=== PATIENT | female | born 1970 | race Caucasian/White ===

== ENCOUNTER 2018-06-17 07:29 | Observation (INO) ==
[2018-06-17 07:52] LABS: Basophils % 0.5 % (0.1-2.0); Eosinophils # 0.1 K/mm3 (0.0-0.4); Eosinophils % 1.5 % (0.1-12.0); Hemoglobin 11.7 g/dL (12.2-16.2); Lymphocytes % 38.3 % (10-50); Mean Corpuscular HGB Conc 32.5 g/dL (31.8-35.4); Mean Corpuscular Hemoglobin 27.1 pg (27.0-31.2); Mean Corpuscular Volume 83.3 fl (81-99); Monocytes # 0.2 K/mm3 (0.1-1.0); Monocytes % 3.8 % (1.7-9.3); Neutrophils # 2.9 K/mm3 (1.8-7.8); Neutrophils % 55.9 % (37.0-80.0); Platelet Count 270 K/mm3 (142-424); Red Blood Count 4.32 M/mm3 (4.20-5.40); Red Cell Distribution Width 14.4 % (11.5-17.5); White Blood Count 5.2 K/mm3 (4.8-10.8)
--- NOTE | 2018-06-17 07:54 | Emergency Department Note ---
ED Disposition Clinical Impression: Unstable angina pectoris, Hypokalemia Obesity Qualifiers: Obesity type: due to excess calories Obesity classification: adult class 3 (BMI >= 40) Serious obesity comorbidity presence: with serious comorbidity Body mass index: BMI 45.0-49.9 Qualified Code(s): E66.01 - Morbid (severe) obesity due to excess calories; Z68.42 - Body mass index (BMI) 45.0-49.9, adult Disposition: Admitted as Observation Condition on Discharge: Good Referrals: Provider,Referral, [Referring] - - Critical Care Critical Care Time: No Attestation: On 06/17/18, the high probability of a clinically significant, sudden or life threatening deterioration of the following system(s) required my full and direct attention, intervention and personal management. The time I documented below is in addition to time spent performing reported procedures but includes the following listed in this critical care notation. Medical Decision Making - Medical Records Medical records reviewed: Yes: I reviewed the patient's medical records. - Juan C Inquiry Pt receiving controlled substance: No Vital Signs: 06/17/18 07:30 06/17/18 07:48 06/17/18 08:14 Temperature 98.4 F Temperature Source Oral Pulse Rate [Right Brachial] 92 H 72 69 Respiratory Rate 22 Blood Pressure [Right Arm] 138/82 130/99 H 125/58 L Blood Pressure Mean [Right Arm] 100 109 80 Blood Pressure Source [Right Arm] Automatic Cuff Automatic Cuff Blood Pressure Position [Right Arm] Sitting Sitting 02 Sat by Pulse Oximetry 97 97 94 L Oxygen Delivery Method Room Air - Lab Data Lab results reviewed: Yes: I reviewed the patient's lab results. Lab Results 06/17/18 07:40: WBC 5.2, RBC 4.32, Hgb 11.7 L, Hct 36.0 L, MCV 83.3, MCH 27.1, MCHC 32.5, RDW 14.4, Plt Count 270, MPV 7.0 L, Neut % (Auto) 55.9, Lymph % (Auto) 38.3, [place] % (Auto) 3.8, Eos % (Auto) 1.5, Baso % (Auto) 0.5, Neut # (Auto) 2.9, Lymph # (Auto) 2.0, [place] # (Auto) 0.2, Eos # (Auto) 0.1, Baso # (Auto) 0.0 06/17/18 07:40: Sodium 140, Potassium 2.9 L*, Chloride 102, Carbon Dioxide 28, Anion Gap 12.9, BUN 7, Creatinine 1.09 H, Estimated Creat Clear 45, Estimated GFR 54 L, Est GFR ( Amer) 65, Glucose 141 H, Calcium 8.6, Troponin I < 0.02 Result diagrams: 06/17/18 07:40 06/17/18 07:40 Orders (Tests/Meds): ED MEDICATIONS Generic Name Dose Route Start Last Admin Trade Name Freq PRN Reason Stop Dose Admin Nitroglycerin 0.4 mg 06/17/18 07:53 06/17/18 07:57 Nitrostat 0.4mg Sl Tablet SL 07/17/18 07:52 1 tab Q5MINP PRN Administration Chest Pain Potassium Chloride 20 meq 06/17/18 08:17 Klor-Con 20meq Tablet PO 06/17/18 08:18 ONCE ONE Discontinued Medications Generic Name Dose Route Start Last Admin Trade Name Freq PRN Reason Stop Dose Admin Aspirin 324 mg 06/17/18 07:46 06/17/18 07:57 Aspirin 81mg Chewable Tablet PO 06/17/18 07:47 324 mg ONCE ONE Administration Nitroglycerin 1 gm 06/17/18 08:13 06/17/18 08:14 Nitroglycerin 1 Inch Oint Udp TD 06/17/18 08:14 1 gm ONCE ONE Administration ORDERS Category Date Time Status Chest XR 2 view (NOT portable) [XR chest 2V] Stat Exams 06/17/18 07:39 Ordered - Radiology Data #1 Image(s): Chest Image Reviewed: Yes I reviewed the patient's radiology image Preliminary Findings: Normal/NAD - ECG Data Tracing #1 Normal Sinus Rhythm: Yes Ischemic changes: non-specific ST-T wave changes ECG compared to prior tracings: this ECG reveals significant changes - Physician Consults Physician Consulted: rudy Reason -: Admission Additional Consult: kendrick Reason -: Pt condition Chest Pain HPI - General Chief Complaint: Chest Pain Stated Complaint: CP Time Seen by Provider: 06/17/18 07:45 Mode of Arrival: Ambulatory Source of Information: Patient, Spouse, Medical Record Limitations: No Limitations Description of Symptoms (Recalled from ER Triage Doc. by RN): C/O "DEEP CP" UNDER LEFT BREAST THAT BEGAN APPROX 1 HOUR AGO. PT STATES THAT SOA BEGAN UPON ENTERING ED, BUT ADVISES HX OF COPD AND EMPHYSEMA. PT ALSO REPORTS HX OF AN "ANXIETY ATTACK" THAT WAS SIMILAR TO THIS A FEW YEARS AGO - History of Present Illness HPI narrative: pt with lt chest pain worse today with last episode last week - pt with no known heart disease - MD complaint: chest pain indicative of cardiac Onset (ago): hour(s) Duration: constant Activity at onset: during rest Pain location: left chest Severity: moderate Treatments prior to or on arrival for Cardiac Chest Pain: none - VICTOR HUGO Score for Non-Stemi Age of Patient: 40-49 years old Heart Rate: 90-109 bpm Systolic Blood Pressure: 120-139 mmhg Serum Creatinine: 0.80-1.19 mg/dl CHF [place] Class: I-No CHF Other Risk Factors: None Non-Stemi Risk Score: 81 - Related Data On Oral Contraceptives: No Allergies Allergy/AdvReac Type Severity Reaction Status Date / Time codeine [CODEINE] Allergy Unknown Verified 06/17/18 07:57 Sulfa (Sulfonamide Allergy Unknown Verified 06/17/18 07:57 Antibiotics) [SULFA (SULFONAMIDE ANTIBIOTICS)] [facility] History - Hepatitis A Screen Drug use history?: No High risk sexual behaviors?: No History of sexually transmitted infection?: No Currently employed?: No Childcare worker?: No Do you have indoor plumbing?: Yes Do you have electricity?: Yes Attestation statement:: This patient has been screened for Hepatitis A risk factors. I have reviewed the patient's past medical history: Yes Medical History: Denies:: Diabetes Mellitus Type 1, Diabetes Mellitus Type 2 Amputation: No Fractures: No - Social History Smoking Status: Former smoker Tobacco Type: cigarettes # Packs/Day (cigarettes): 1 Alcohol Intake: never Occupational Status: unemployed - Psychiatric History Expresses thoughts of harming self/others: None Suicide Plan Description: No Plan ROS Obtained: Yes All systems reviewed & no additional complaints - Constitutional Constitutional: Denies fever(s) - Eyes Eyes: Denies change in vision - ENT Ears, Nose, Mouth, and Throat: Denies sore throat - Cardiovascular Cardiovascular: Reports chest pain at rest, Reports radiating jaw, neck or arm pain - Respiratory Respiratory: No cough - Gastrointestinal Gastrointestingal: Denies: abdominal pain - Genitourinary Female Genitourinary: Denies hematuria - Musculoskeletal Musculoskeletal: Denies joint pain - Integumentary/Breasts Skin/Breast: Denies rash - Neurologic Neurologic: Denies seizure-like activity Physical Exam - General General appearance: in no apparent distress, obese - Head Head exam: normocephalic - Eye Eye exam: Present: PERRL, EOMI. Absent: scleral icterus - ENT ENT exam: Present: mucous membranes dry - Neck Neck exam: Present: trachea midline - Respiratory Respiratory exam: Present: normal lung sounds bilaterally. Absent: respiratory distress - Cardiovascular Cardiovascular exam: Present: regular rate, systolic murmur - Abdominal Exam Abdominal exam: Present: soft - Extremities Exam Extremities exam: Absent: calf tenderness - Neurological Exam Neurological exam: Present: alert, oriented X3, CN II-XII intact - Psychiatric Psychiatric exam: Present: normal affect - Skin Skin exam: Absent: rash
[2018-06-17 08:03] LABS: Anion Gap 12.9 mEq/L (5-15); Blood Urea Nitrogen 7 mg/dL (7-18); Calcium 8.6 mg/dL (8.5-10.1); Carbon Dioxide 28 mmol/L (21.0-32.0); Chloride 102 mmol/L (98-107); Glucose 141 mg/dL (74-106); Sodium 140 mmol/L (136-145)
[2018-06-17 08:11] LABS: Potassium 2.9 mmoL/L (3.5-5.1)
--- NOTE | 2018-06-17 08:20 | Consult Report ---
History of Present Illness Consult date: 06/17/18 Requesting physician: Andrey Adrian Consult reason: chest pain Chief complaint: chest pain Additional Medical History:: 1. DM, treated for 3 yrs 2. HTN, on medication 3. HLD, on medication 4. History of migraines A. Takes nadolol 5. History of seizure disorder 6. FH of early CAD in father who is diabetic 7. Tobacco use, stopped 2 months ago A. smoked 1.5-2 ppd for 30 yrs History of present illness: 47-year-old white female with multiple medical problems including hypertension, hyperlipidemia, diabetic and ex-smoker of less than 1 year presented to the emergency department for complaint of chest pain that woke her from sleep. Patient relates a 2-week history of increasing episodes of recurrent left-sided chest discomfort described as a sharp stabbing sensation. No appreciable exercise component noted. She denies any nausea, vomiting or diarrhea. Patient relates she is being worked up for gastric sleeve and due to her abnormal EKG was told she needed to have a stress test in the near future. This has not been accomplished at this time. Patient was seen in the emergency department today at [facility] and was given a sublingual nitroglycerin with improvement in her chest pain. A second sublingual nitroglycerin has been given with additional improvement in her chest pain. Initial EKG shows sinus rhythm with ST segment abnormalities in the anterolateral leads, worse when compared with her previous tracings from 2013 and 2008. Initial labs are pending at this time. Patient relates a cardiac catheterization in the remote past (greater than 5 years ago) without need for intervention. Cardiology consulted for evaluation recommendations. [facility] History Medical History: Reports:: Hyperlipidemia, Hypertension Denies:: Diabetes Mellitus Type 1, Diabetes Mellitus Type 2 Amputation: No Fractures: No - *Social History Smoking Status: Former smoker Tobacco Type: cigarettes # Packs/Day (cigarettes): 1 Alcohol Intake: never *Occupational Status:: unemployed *Travel in the last 8 weeks: None - Psychiatric History Expresses thoughts of harming self/others: None Suicide Plan Description: No Plan Family Hx:: Coronary Artery Disease, Diabetes Meds Home Medications Medication Instructions Recorded Confirmed Type Gabapentin [Gabapentin 100mg Cap] 100 mg PO DAILY 06/17/18 06/17/18 History Nadolol [Corgard 20mg tablet] 20 mg PO DAILY 06/17/18 06/17/18 History Omeprazole [Omeprazole 40mg 40 mg PO DAILY 06/17/18 06/17/18 History Capsule] Pravastatin Sodium [Pravachol 40mg 40 mg PO DAILY 06/17/18 06/17/18 History Tablet] Tiotropium [place] [Spiriva 1 puff PO NEEDED PRN 06/17/18 06/17/18 History 18mcg/puff inhaler] Tramadol HCl [Tramadol 50mg 50 mg PO Q6HP PRN 06/17/18 06/17/18 History Tab] Allergies Allergy/AdvReac Type Severity Reaction Status Date / Time codeine [CODEINE] Allergy Unknown Verified 06/17/18 07:57 Sulfa (Sulfonamide Allergy Unknown Verified 06/17/18 07:57 Antibiotics) [SULFA (SULFONAMIDE ANTIBIOTICS)] Review of Systems - *Cardiovascular Reports chest pain, Denies shortness of breath with activity, Denies fast heart rate - *Respiratory Denies shortness of breath, Denies wheezing - *Gastrointestinal Denies abdominal pain, Denies nausea, Denies vomiting - *Genitourinary Denies blood in urine - *Musculoskeletal Denies joint pain, Denies back pain - *Neurologic Denies dizziness, Denies fainting Exam Vital signs and Labs for Last 24 Hours: Temp Pulse Resp BP Pulse Ox 98.4 F 72 22 130/99 H 97 06/17/18 07:30 06/17/18 07:48 06/17/18 07:30 06/17/18 07:48 06/17/18 07:48 Laboratory Results - last 24 hr 06/17/18 07:40: WBC 5.2, RBC 4.32, Hgb 11.7 L, Hct 36.0 L, MCV 83.3, MCH 27.1, MCHC 32.5, RDW 14.4, Plt Count 270, MPV 7.0 L, Neut % (Auto) 55.9, Lymph % (A uto) 38.3, [place] % (Auto) 3.8, Eos % (Auto) 1.5, Baso % (Auto) 0.5, Neut # (Auto) 2.9, Lymph # (Auto) 2.0, [place] # (Auto) 0.2, Eos # (Auto) 0.1, Baso # (Auto) 0.0 06/17/18 07:40: Sodium 140, Potassium 2.9 L*, Chloride 102, Carbon Dioxide 28, Anion Gap 12.9, BUN 7, Creatinine 1.09 H, Estimated Creat Clear 45, Estimated GFR 54 L, Est GFR ( Amer) 65, Glucose 141 H, Calcium 8.6, Troponin I < 0.02 I & O for Last 24 hours: Intake & Output 06/14/18 06/15/18 06/16/18 06/17/18 11:59 11:59 11:59 11:59 Weight 245 lb - *Routine HEENT Exam Head: Present: normocephalic Eye: Present: EOMI, PERRL ENT: Present: mucous membranes moist - *Routine Neck Exam Present: supple. Absent: JVD, carotid bruit - *Routine Respiratory Exam Present: CTA bilaterally. Absent: accessory muscle use, rales, rhonchi, wheezes - *Routine Cardiovascular Exam Present: RRR. Absent: murmur, gallop, rubs - *Routine Abdominal Exam Present: soft. Absent: tenderness, distended, guarding - *Routine Extremities Exam Absent: edema, calf tenderness - *Routine Neurological Exam Present: alert, oriented X3, moving all extremities Assessment and Plan (1) Unstable angina pectoris Current visit: Yes Status: Acute Category: Medical Code(s): I20.0 - Unstable angina (2) Diabetes mellitus Current visit: Yes Status: Acute Category: Medical Code(s): E11.9 - Type 2 diabetes mellitus without complications (3) Ex-smoker for less than 1 year Current visit: Yes Status: Acute Category: Social Hx Code(s): Z78.9 - Other specified health status (4) Hypertension Current visit: Yes Status: Acute Category: Medical Code(s): I10 - Essential (primary) hypertension (5) Hyperlipidemia associated with type 2 diabetes mellitus Current visit: Yes Status: Acute Category: Medical Code(s): E11.69 - Type 2 diabetes mellitus with other specified complication; E78.5 - Hyperlipidemia, unspecified (6) Obesity, morbid, BMI 40.0-49.9 Current visit: Yes Status: Acute Category: Medical Code(s): E66.01 - Morbid (severe) obesity due to excess calories (7) History of seizure disorder Current visit: Yes Status: Acute Category: Medical Code(s): Z86.69 - Personal history of other diseases of the nervous system and sense organs (8) Abnormal EKG Current visit: Yes Status: Acute Category: Medical Code(s): R94.31 - Abnormal electrocardiogram [ECG] [EKG] - Assessment and plan all Dx Assessment and Plan for all problems:: 1. Patient is having recurrent episodes of chest pain that constitutes unstable angina pectoris. Symptoms have significantly improved with nitroglycerin tabs. Patient will receive aspirin along with Nitropaste and metoprolol 25 mg, be admitted for observation and treatment including cardiac catheterization this morning. 2. Recommend echocardiogram to evaluate left ventricular size and function along with valve status. 3. Further recommendations to follow pending above results.
--- NOTE | 2018-06-17 11:30 | Pharmacy Consult Notes ---
[facility] Pharmacy VTE Monitoring - Patient Demographics Admission date: 06/17/18 Report Date: 06/17/18 Time: 11:30 Allergies/Adverse Reactions: Patient Allergies codeine [CODEINE] Allergy (Unknown, Verified 06/17/18 07:57) Sulfa (Sulfonamide Antibiotics) [SULFA (SULFONAMIDE ANTIBIOTICS)] Allergy (Unknown, Verified 06/17/18 07:57) Height: 1.52 m Weight: 111.13 kg Patient Problems: Current Active Problems (Updated 06/17/18 @ 09:35 by Sosa Clark RN) Unstable angina pectoris (Acute) Diabetes mellitus (Acute) Ex-smoker for less than 1 year (Acute) Hypertension (Acute) Hyperlipidemia associated with type 2 diabetes mellitus (Acute) Obesity, morbid, BMI 40.0-49.9 (Acute) History of seizure disorder (Acute) Abnormal EKG (Acute) Unstable angina pectoris (Acute) Hypokalemia (Acute) Obesity (Acute) - VTE Risk Labs: VTE Related Lab Results Hgb 11.7 g/dL (12.2-16.2) L 06/17/18 07:40 Hct 36.0 % (37.0-47.0) L 06/17/18 07:40 Plt Count 270 K/mm3 (142-424) 06/17/18 07:40 BUN 7 mg/dL (7-18) 06/17/18 07:40 Creatinine 1.09 mg/dL (0.55-1.02) H 06/17/18 07:40 Estimated Creat Clear 45 mL/min (50-200) 06/17/18 07:40 - Prophylaxis VTE Prophylaxis Ordered?: Yes Types of VTE Prophylaxis: TEDS Knee High Location of Applied Device: Bilateral Lower Extremeties
--- NOTE | 2018-06-17 16:00 | Discharge Summary ---
General - General Admission date:: 06/17/18 Discharge date: 06/17/18 HPI HPI: HPI pulled from Cardiology consult: 47-year-old white female with multiple medical problems including hypertension, hyperlipidemia, diabetic and ex-smoker of less than 1 year presented to the emergency department for complaint of chest pain that woke her from sleep. Patient relates a 2-week history of increasing episodes of recurrent left-sided chest discomfort described as a sharp stabbing sensation. No appreciable exercise component noted. She denies any nausea, vomiting or diarrhea. Patient relates she is being worked up for gastric sleeve and due to her abnormal EKG was told she needed to have a stress test in the near future. This has not been accomplished at this time. Patient was seen in the emergency department today at [facility] and was given a sublingual nitroglycerin with improvement in her chest pain. A second sublingual nitroglycerin has been given with additional improvement in her chest pain. Initial EKG shows sinus rhythm with ST segment abnormalities in the anterolateral leads, worse when compared with her previous tracings from 2013 and 2008. Initial labs are pending at this time. Patient relates a cardiac catheterization in the remote past (greater than 5 years ago) without need for intervention. Cardiology consulted for evaluation recommendations. Hospital Course Hospital Course: Patient was admitted for chest pain and further observation and procedure. Cardiac catheterization today revealed normal coronary arteries, normal ejection fraction, and moderate to severely elevated LVEDP consistent with diastolic dysfunction. Recommendations were made by cardiology to start lasix 20 mg daily and spironlactone 25 mg daily. She will follow up with PCP in one week to monitor blood pressure, symptoms and draw BMP. Follow up with cardiology in 1-2 weeks. Objective Vital signs: Temp Pulse Resp BP Pulse Ox 98.0 F 71 16 120/68 96 06/17/18 11:55 06/17/18 13:55 06/17/18 13:55 06/17/18 13:55 06/17/18 13:55 no acute distress, obese - *Routine Respiratory Exam Present: CTA bilaterally. Absent: accessory muscle use - *Routine Cardiovascular Exam Present: RRR, Normal S1, Normal S2. Absent: tachycardia, irregular rhythm - *Routine Abdominal Exam Present: soft, normoactive bowel sounds - *Routine Extremities Exam Comments: right radial with dressing from cardiac cath CDI, no ecchymosis, cyanosis, swelling noted, < 3 sec cap refill - *Routine Neurological Exam Present: alert, oriented X3 - Routine Psychiatric Exam Present: normal affect Results Labs on day of discharge: Labs from last 24 hours 06/17/18 06/17/18 06/17/18 12:15 07:40 07:40 WBC RBC Hgb Hct MCV MCH MCHC RDW Plt Count MPV Neut % (Auto) Lymph % (Auto) [place] % (Auto) Eos % (Auto) Baso % (Auto) Neut # (Auto) Lymph # (Auto) [place] # (Auto) Eos # (Auto) Baso # (Auto) Sodium 140 Potassium 2.9 L* Chloride 102 Carbon Dioxide 28 Anion Gap 12.9 BUN 7 Creatinine 1.09 H Estimated Creat Clear 45 Estimated GFR 54 L Est GFR ( Amer) 65 Glucose 141 H Calcium 8.6 Troponin I < 0.02 < 0.02 Serum HCG, Qual Negative 06/17/18 07:40 WBC 5.2 RBC 4.32 Hgb 11.7 L Hct 36.0 L MCV 83.3 MCH 27.1 MCHC 32.5 RDW 14.4 Plt Count 270 MPV 7.0 L Neut % (Auto) 55.9 Lymph % (Auto) 38.3 [place] % (Auto) 3.8 Eos % (Auto) 1.5 Baso % (Auto) 0.5 Neut # (Auto) 2.9 Lymph # (Auto) 2.0 [place] # (Auto) 0.2 Eos # (Auto) 0.1 Baso # (Auto) 0.0 Sodium Potassium Chloride Carbon Dioxide Anion Gap BUN Creatinine Estimated Creat Clear Estimated GFR Est GFR ( Amer) Glucose Calcium Troponin I Serum HCG, Qual DS: Diagnosis - Discharge Diagnosis (1) Unstable angina pectoris Status: Acute (2) Diabetes mellitus Status: Acute (3) Ex-smoker for less than 1 year Status: Acute (4) Hypertension Status: Acute (5) Hyperlipidemia associated with type 2 diabetes mellitus Status: Acute (6) Obesity, morbid, BMI 40.0-49.9 Status: Acute (7) History of seizure disorder Status: Acute (8) Abnormal EKG Status: Acute (9) Diastolic dysfunction Status: Acute Discharge Plan - Patient Discharge Instructions ACTIVITY: No heavy lifting DIET: low salt diet, cardiac Patient Instructions: DI for Pacemaker Insertion, DI for Surgical Site Infection - Follow up Plan Follow up with: Yarely Higginbotham APRN [Nurse Practitioner] - 06/23/18 8:00 am Disposition: Home, Self-Half-Way Medications: Home Medications Medication Instructions Recorded Confirmed Type Aspirin [Aspirin 325mg Tab] 325 mg PO DAILY 06/17/18 06/17/18 History Furosemide [Lasix 20mg tablet] 20 mg PO DAILY 30 Days #30 tab 06/17/18 Rx Gabapentin [Gabapentin 100mg Cap] 100 mg PO TID 06/17/18 06/17/18 History Loratadine [Allergy] 10 mg PO DAILY 06/17/18 06/17/18 History Nadolol [Corgard 20mg tablet] 20 mg PO DAILY 06/17/18 06/17/18 History Omeprazole [Omeprazole 40mg 40 mg PO DAILY 06/17/18 06/17/18 History Capsule] Pravastatin Sodium [Pravachol 40mg 40 mg PO DAILY 06/17/18 06/17/18 History Tablet] Sertraline HCl [Zoloft] 100 mg PO BID 06/17/18 06/17/18 History Spironolactone [Aldactone 25mg 25 mg PO DAILY 30 Days #30 tablet 06/17/18 Rx Tab] Tiotropium [place] [Spiriva 1 puff PO DAILY 06/17/18 06/17/18 History 18mcg/puff inhaler] Tramadol HCl [Tramadol 50mg 50 mg PO Q4HP PRN 06/17/18 06/17/18 History Tab] dilTIAZem HCl [Cartia Xt] 180 mg PO DAILY 06/17/18 06/17/18 History Prescriptions/Medication Reconciliation: New Spironolactone [Aldactone 25mg Tab] 25 mg PO DAILY 30 Days #30 tablet Furosemide [Lasix 20mg tablet] 20 mg PO DAILY 30 Days #30 tab Continued Tiotropium [place] [Spiriva 18mcg/puff inhaler] 1 puff PO DAILY Pravastatin Sodium [Pravachol 40mg Tablet] 40 mg PO DAILY Omeprazole [Omeprazole 40mg Capsule] 40 mg PO DAILY Nadolol [Corgard 20mg tablet] 20 mg PO DAILY Gabapentin [Gabapentin 100mg Cap] 100 mg PO TID Aspirin [Aspirin 325mg Tab] 325 mg PO DAILY dilTIAZem HCl [Cartia Xt] 180 mg PO DAILY Loratadine [Allergy] 10 mg PO DAILY Tramadol HCl [Tramadol 50mg Tab] 50 mg PO Q4HP PRN PRN Reason: PAIN Sertraline HCl [Zoloft] 100 mg PO BID
--- NOTE | 2018-06-17 16:53 | Cardiology Report ---
PROCEDURE: 2-D M-mode and color Doppler study INDICATIONS FOR THE TEST: Chest pain X COPDX Heart Murmur Tobacco SmokingEX Palpitations FatigueX Syncope Edema HypertensionXDiabetes MellitusX Rheumatic Fever SOBXDOEXObesityXHyperlipidemia Family History HD Additional History PATIENT INFORMATION HEIGHT: 60 WEIGHT:245 GENDER: Female B/P:121/64 2-D/M-MODE INTERPRETATION: 2-D MEASUREMENTS OBSERVED VALUES IN CMS Right Ventricular Dimension (RVDd) 2.0 Interventricular Septum (Thickness)(IVsd) 1.0 Left Ventricular Internal Dimensions(LVIDd) 5.5 Left Ventricular Posterior Wall (Thickness)(LVPWd) 1.0 Aortic Root 2.8 Aortic Cusp Separation 1.5 Left Atrial Dimensions (LAD) 4.4 2D 1. Technically difficult study, Definity contrast was utilized to delineate endocardial surfaces 2. Left atrium is mildly enlarged, left ventricle is normal size, there is mild concentric left ventricular hypertrophy, there is mildly reduced left ventricular systolic function, visually estimated ejection fraction 40-45%, left ventricle is globally hypokinetic. 3. The right atrium and right ventricle are mildly enlarged with normal contractility. 4. The aortic valve is minimally thickened and fibrosed. 5. The mitral and tricuspid valve leaflets are minimally thickened. 6. The pulmonic valve is poorly present. 7. No significant pericardial effusion noted. DOPPLER INTERROGATION: Doppler interrogation of the aortic, mitral and tricuspid valvular presence of mild to moderate mitral and mild tricuspid regurgitation, calculated right ventricular systolic pressure is 42 mmHg consistent with moderate pulmonary hypertension, diastolic parameters are inconclusive. CONCLUSION: 1. Technically difficult study, Definity contrast was utilized to delineate endocardial surfaces. 2. Mildly enlarged left atrium, normal left ventricular size, mild concentric left ventricular hypertrophy, there is mildly reduced left ventricular systolic function, visually estimated ejection fraction 40-45%, left ventricle is globally hypokinetic, diastolic parameters are inconclusive. 3. Mildly enlarged right atrium and right ventricle, contractility of the right ventricle is normal. 4. Mild to moderate mitral and mild tricuspid regurgitation, calculated right ventricular systolic pressure is 42 mmHg consistent with moderate pulmonary hypertension. 5. No significant pericardial effusion noted.
--- NOTE | 2018-06-22 11:45 | H&P/Discharge Summary ---
General - General Admission date:: 06/17/18 Discharge date: 06/17/18 *Admission Date: 06/17/18 *History of present illness: 47-year-old white female with multiple medical problems including hypertension, hyperlipidemia, diabetic and ex-smoker of less than 1 year presented to the emergency department for complaint of chest pain that woke her from sleep. Patient relates a 2-week history of increasing episodes of recurrent left-sided chest discomfort described as a sharp stabbing sensation. No appreciable exercise component noted. She denies any nausea, vomiting or diarrhea. Patient relates she is being worked up for gastric sleeve and due to her abnormal EKG was told she needed to have a stress test in the near future. This has not been accomplished at this time. Patient was seen in the emergency department today at [facility] and was given a sublingual nitroglycerin with improvement in her chest pain. A second sublingual nitroglycerin has been given with additional improvement in her chest pain. Initial EKG shows sinus rhythm with ST segment abnormalities in the anterolateral leads, worse when compared with her previous tracings from 2013 and 2008. Initial labs are pending at this time. Patient relates a cardiac catheterization in the remote past (greater than 5 years ago) without need for intervention. Cardiology consulted for evaluation recommendations. [facility] History I have reviewed the patient's past medical history: Yes Medical History: Reports:: Cancer (PRECANCEROUS CELLS LEFT BREAST), Hyperlipidemia, Hypertension Denies:: Diabetes Mellitus Type 1, Diabetes Mellitus Type 2, MRSA *Have you ever received a pneumonia vaccine?: No *Have you received a flu vaccine this season?: No Other Surgeries: Yes: Hysterectomy-Total Amputation: No Fractures: No - *Social History Educational Level: Completed High School Smoking Status: Former smoker Tobacco Type: cigarettes # Packs/Day (cigarettes): 1 Alcohol Intake: never *Occupational Status:: unemployed Housing: house Household Members: spouse *Travel in the last 8 weeks: None - Psychiatric History Expresses thoughts of harming self/others: None Suicide Plan Description: No Plan Family Hx:: Cancer, Coronary Artery Disease, Diabetes, Heart Attack, Hyperlipidemia, Hypertension Review of Systems - Review of Systems Review of systems:: pertinent systems reviewed and negative unless documented below - *Neurologic Denies dizziness, Denies seizure-like activity, Denies fainting Exam Vital signs and Labs for Last 24 Hours: Temp Pulse Resp BP Pulse Ox 98.0 F 71 16 126/73 94 L 06/17/18 16:55 06/17/18 16:55 06/17/18 16:55 06/17/18 16:55 06/17/18 16:55 - Constitutional no acute distress - *Routine HEENT Exam Head: Present: normocephalic Eye: Present: EOMI ENT: Present: mucous membranes moist - *Routine Respiratory Exam Present: CTA bilaterally - *Routine Cardiovascular Exam Present: RRR, Normal S1, Normal S2 - *Routine Abdominal Exam Present: soft, normoactive bowel sounds - *Routine Extremities Exam Present: edema (trace bilateral lower ext) Hospital Course Hospital Course: Patient was admitted for chest pain and further observation and procedure. Cardiac catheterization today revealed normal coronary arteries, normal ejection fraction, and moderate to severely elevated LVEDP consistent with diastolic dysfunction. Recommendations were made by cardiology to start lasix 20 mg daily and spironlactone 25 mg daily. She will follow up with PCP in one week to monitor blood pressure, symptoms and draw BMP. Follow up with cardiology in 1-2 weeks DS: Diagnosis - Discharge Diagnosis (1) Unstable angina pectoris Status: Acute (2) Diabetes mellitus Status: Acute (3) Ex-smoker for less than 1 year Status: Acute (4) Hypertension Status: Acute (5) Hyperlipidemia associated with type 2 diabetes mellitus Status: Acute (6) Obesity, morbid, BMI 40.0-49.9 Status: Acute (7) History of seizure disorder Status: Acute (8) Abnormal EKG Status: Acute (9) Diastolic dysfunction Status: Acute Discharge Medications - Medications for Discharge Home Medication List at Discharge: New Spironolactone [Aldactone 25mg Tab] 25 mg PO DAILY 30 Days #30 tab Furosemide [Lasix 20mg tablet] 20 mg PO DAILY 30 Days #30 tab Continued Tiotropium [place] [Spiriva 18mcg/puff inhaler] 1 puff PO DAILY Pravastatin Sodium [Pravachol 40mg Tablet] 40 mg PO DAILY Omeprazole [Omeprazole 40mg Capsule] 40 mg PO DAILY Nadolol [Corgard 20mg tablet] 20 mg PO DAILY Gabapentin [Gabapentin 100mg Cap] 100 mg PO TID Aspirin [Aspirin 325mg Tab] 325 mg PO DAILY dilTIAZem HCl [Cartia Xt] 180 mg PO DAILY Loratadine [Allergy] 10 mg PO DAILY Tramadol HCl [Tramadol 50mg Tab] 50 mg PO Q4HP PRN PRN Reason: PAIN Sertraline HCl [Zoloft] 100 mg PO BID Disposition Disposition: Home, Self-Care
== END 2018-06-17 17:48 | disposition home or self-care (01) ==
LOC: 2ND 07:29 → ER 07:29 → 2ND 09:14
PROVIDERS: ADMIT Family Medicine; ATTEND Family Medicine
CPT/HCPCS: 36415; 71020; 71046; 80048; 84484; 84703; 85025; 93005; 93306; 93458; 99152; 99284; C1725; C1769; G0378; J1644

== ENCOUNTER → 2018-06-23 08:47 | Outpatient (CLI) | payer MEDICARE, MEDICAID, SELFPAY ==
[2018-06-23 11:02] LABS: Anion Gap 10.6 mEq/L (5-15); Blood Urea Nitrogen 9 mg/dL (7-18); Calcium 8.7 mg/dL (8.5-10.1); Carbon Dioxide 32 mmol/L (21.0-32.0); Chloride 102 mmol/L (98-107); Creatinine,Serum 0.98 mg/dL (0.55-1.02); Estimated Glomerular Filt Rate 60 ml/min (>60); GFR (African American) 73 ML/MIN (>60); Glucose 98 mg/dL (74-106); Potassium 3.6 mmoL/L (3.5-5.1); Sodium 141 mmol/L (136-145)
== END ==
PROVIDERS: PCP Nurse Practitioner Family; Visit Provider Nurse Practitioner Family
DX: E87.6 Hypokalemia (principal); I10 Essential (primary) hypertension
CPT/HCPCS: 36415; 80048

== ENCOUNTER → 2019-05-31 08:11 | Outpatient (CLI) | payer MEDICARE, MEDICAID, SELFPAY ==
--- NOTE | 2019-05-31 08:15 | XR_ITS ---
PROCEDURE: XR WRIST RT MIN 3V CLINICAL INDICATION: right wrist pain/ cts COMPARISON: XR WRIST LT MIN 3V from 05/31/2019 FINDINGS: There is a well-circumscribed cyst involving the mid aspect of the scaphoid measuring 6 mm. No acute fracture or other significant anomalies evident. There is a small bony ridge laterally at the waist of the scaphoid nonspecific. There is some minimal hypertrophic change of the radial styloid process and mild prominence of the scapho lunate space IMPRESSION: Well-circumscribed benign-appearing cystic lesion of the scaphoid. Mild prominence of the scapholunate space which could be seen with ligamentous injury. Dictated by: Neville Piper MD 05/31/2019 17:59 Electronically signed by Neville Piper MD in [place] 05/31/2019 17:59
--- NOTE | 2019-05-31 08:15 | XR_ITS ---
PROCEDURE: XR WRIST LT MIN 3V CLINICAL INDICATION: left wrist pain/ cts COMPARISON: No exams were available for comparison FINDINGS: No fracture, dislocation, lytic change, or blastic change evident. No significant degenerative change IMPRESSION: Negative left wrist Dictated by: Neville Piper MD 05/31/2019 17:59 Electronically signed by Neville Piper MD in [place] 05/31/2019 17:59
== END ==
PROVIDERS: PCP Family Medicine; Visit Provider Orthopaedic Surgery
DX: M25.532 Pain in left wrist (principal); M25.531 Pain in right wrist
CPT/HCPCS: 73110; 97760

== ENCOUNTER 2019-05-31 10:04 | Outpatient (RCR) | payer MEDICARE, MEDICAID, SELFPAY | END 2019-05-31 10:47 | disposition home or self-care (01) | LOC: PT 10:04 | PROVIDERS: Visit Provider Orthopaedic Surgery | DX: G56.03 Carpal tunnel syndrome, bilateral upper limbs (principal) | CPT/HCPCS: 97760 ==

== ENCOUNTER → 2019-06-13 10:11 | Outpatient (CLI) | payer MEDICARE, MEDICAID, SELFPAY ==
--- NOTE | 2019-06-13 10:11 | MR_ITS ---
PROCEDURE: MR WRIST RT WO CON CLINICAL INDICATION: evaluate cyst; rec by Dr Piper Right wrist pain, evaluate extent of cystic involvement COMPARISON: XR WRIST RT MIN 3V from 05/31/2019 XR WRIST LT MIN 3V from 05/31/2019 TECHNIQUE: Routine multiplanar multi echo sequences are performed without gadolinium enhancement. FINDINGS: Exam is somewhat limited due to mild motion artifact and non orthogonal imaging planes with mild rotation of the patient's wrist.. There is a complex cystic lesion involving the mid aspect of the scaphoid this lesion measures 10 by 7 by 6 mm. There does appear to be some internal septations. There is thinning of the cortex. No obvious soft tissue component however, this is at best questionable IMPRESSION: Limited exam demonstrating complex cystic lesion of the scaphoid. This is causing moderate cortical thinning. Due to the limitations, would suggest CT for more thorough evaluation of the bony structures. Dictated by: Nevilel Piper MD 06/15/2019 12:36 Electronically signed by Neville Piper MD in [place] 06/15/2019 12:36
== END ==
PROVIDERS: PCP Family Medicine; Visit Provider Orthopaedic Surgery
DX: M85.649 Other cyst of bone, unspecified hand (principal)
CPT/HCPCS: 73221

== ENCOUNTER → 2019-07-06 07:11 | Outpatient (CLI) | payer MEDICARE, MEDICAID, SELFPAY ==
[2019-07-06 08:22] LABS: Basophils % 0.5 % (0.1-2.0); Eosinophils # 0.1 K/mm3 (0.0-0.4); Eosinophils % 1.2 % (0.1-12.0); Hemoglobin 11.7 g/dL (12.2-16.2); Lymphocytes # 2.7 K/mm3 (0.7-4.5); Lymphocytes % 38.1 % (10-50); Mean Corpuscular HGB Conc 32.6 g/dL (31.8-35.4); Mean Corpuscular Hemoglobin 27.6 pg (27.0-31.2); Mean Corpuscular Volume 84.7 fl (81-99); Mean Platelet Volume 7.8 fl (7.4-10.4); Monocytes # 0.4 K/mm3 (0.1-1.0); Neutrophils # 3.9 K/mm3 (1.8-7.8); Neutrophils % 55.2 % (37.0-80.0); Platelet Count 274 K/mm3 (142-424); Red Blood Count 4.25 M/mm3 (4.20-5.40); Red Cell Distribution Width 14.6 % (11.5-17.5); White Blood Count 7.1 K/mm3 (4.8-10.8)
[2019-07-06 08:49] LABS: Chloride 99 mmol/L (98-107); Potassium 3.9 mmoL/L (3.5-5.1); Sodium 139 mmol/L (136-145)
[2019-07-06 08:52] LABS: Anion Gap 12.9 mEq/L (5-15); Blood Urea Nitrogen 14 mg/dl (7-17); Calcium 9.3 mg/dl (8.4-10.2); Carbon Dioxide 31 mmol/L (22.0-30.0); Estimated Glomerular Filt Rate 66 ml/min (>60); GFR (African American) 80 ML/MIN (>60); Glucose 203 mg/dl (74-100)
[2019-07-06 09:27] LABS: Coronavirus 19 IgG Antibody Negative (Negative); Coronavirus 19 IgM Antibody Negative (Negative)
[2019-07-06 10:08] LABS: Hemoglobin A1C 7.2 % (4.0-6.0)
== END ==
PROVIDERS: Visit Provider Orthopaedic Surgery
DX: Z01.818 Encounter for other preprocedural examination (principal); G56.01 Carpal tunnel syndrome, right upper limb; E11.9 Type 2 diabetes mellitus without complications
CPT/HCPCS: 36415; 80048; 83036; 85025; 86328

== ENCOUNTER 2019-07-07 06:00 | Day surgery (SDC) | payer MEDICARE, MEDICAID, SELFPAY ==
--- NOTE | 2019-07-05 14:36 | SUR.PREOP ---
07/05/2019--PHONE CALL MADE TO PATIENT. PATIENT UNDERSTANDS THAT LAB WORK AND COVID TESTING NEEDS TO BE COMPLETED @ 0700 ON 07/06/2019 . PATIENT UNDERSTANDS IF LAB WORK AND COVID-19 TESTS ARE NOT COMPLETED BY 12PM ON THAT DATE, THE SURGERY SCHEDULED WILL BE CANCELLED AND RESCHEDULED FOR ANOTHER TIME.
[2019-07-06 10:30] VITALS: BMI 50.8
[2019-07-07] VITALS (12 sets, daily range): BP systolic 101–124; BP diastolic 52–79; PULSE 58–91; RESP 18–20; TEMP 36.3–36.6; O2SAT 95–98
--- NOTE | 2019-07-07 06:57 | P.PN_ITS ---
[facility] Anesthesia Checklist - Patient Identification Patient Identification: Arm Band, Verbal (Name & ) - Structural Data Admitted From: Home Planned Operative Procedure/s: Right CTR Consent for Planned Operative Procedure(s) Verified: Yes Verified Documents: Surgical Consent, History and Physical - NPO Status Verified Time NPO: 20:00 - Chart Verification Results Verified: CBC, BMP - Additional verifications Anesthesia Reactions: No Hx Blood Transfusions: No Blood Transfusion Reaction: No - Airway Assessment C-Spine Mobility Assessed: Yes (full neck ROM, thick neck, MP II) TMJ Mobility Assessed: Yes Dentition: Edentulous - Neurological Assessment Level of Consciousness: Awake, Alert, Appropriate, Follows Commands Hx Seizures: Yes (6 months ago) Numbness or tingling in extremities: Yes (Bilateral hands) - Anesthesia Plan Anesthesia Risk discussed: Yes Anesthesia Plan: Verified ASA Class: III Anesthesia Type: MAC [facility] History I have reviewed the patient's past medical history: Yes Medical History: Reports:: Anxiety, Chronic Obstructive Pulmonary Disease (COPD), Depression, Gastroesophageal Reflux Disease(GERD), Hyperlipidemia, Hypertension, Seizures (last seizure 6 months ago) Denies:: Cancer, Diabetes Mellitus Type 1, Diabetes Mellitus Type 2, MRSA *Have you ever received a pneumonia vaccine?: Yes *Have you received a flu vaccine this season?: Yes Other Medical History: Reports: Arthritis. Denies: Blood Transfusion Reaction Comment:: chronic lower back pain, morbid obesity Anesthesia experience/problems:: None Laterality Cases: Left: Breast Biopsy Other Surgeries: Yes: Cardiac Catheterization, Cholecystectomy, , Hysterectomy-Total Amputation: No Fractures: No - *Social History Educational Level: Completed High School Smoking Status: Former smoker (Quit 1 year and 3 months ago) Tobacco Type: cigarettes # Packs/Day (cigarettes): 1 #Yrs smoked (if former smoker): 30 Alcohol Intake: never Substance Use Type: denies use *Occupational Status:: unemployed Housing: house Household Members: spouse *Travel in the last 8 weeks: None - Psychiatric History Pschychiatric History:: Reports:: Anxiety, Depression Family Hx:: Cancer, Coronary Artery Disease, Diabetes, Heart Attack, Hyperlipidemia, Hypertension
--- NOTE | 2019-07-07 09:16 | HMH.ANESI ---
[facility] Anesthesia Record Part I Intake, IV Amount: 913 Estimated blood loss (mL): 10 Urine output (mL): 0 Blood Products used (#): none Blood Pressure: 124/71 SaO2: 96 Pulse Rate: 91 Respiratory Rate: 20 Temperature: 97.8 F Patient is:: Drowsy, Nasal O2, Stable Stable to PACU at:: 09:13
--- NOTE | 2019-07-07 10:28 | HMH.ANESII ---
[facility] Anesthesia Record Part II Discharge Time: 09:43 Destination: Surgical Day Care (OP Surgery) PACU nurse assessment reviewed?: Yes Patient Condition:: Good Anesthesia Complications:: None Swallowing reflex intact?: Yes Cyanosis?: No Blood Pressure: 113/54 Pulse Rate: 85 Temperature: 97.7 F Mental Status: Alert & Oriented Pain level:: 2 Nausea and/or vomitting:: None Intake, IV Amount: 50
--- NOTE | 2019-07-07 11:15 | SUR.PHASEII ---
R hand fingers are pink, warm, and able to move fingers. Partial numbness from local.
--- NOTE | 2019-07-07 18:15 | HMH.OPNOTE ---
Date of procedure: 07/07/19 Pre-op Diagnosis:: Carpal tunnel syndrome, right wrist Post-op Diagnosis:: 1. Carpal tunnel syndrome, right wrist 2. Synovitis flexor tendon sheaths, right carpal tunnel Procedure performed:: 1. Open carpal tunnel release, RIGHT wrist 2. Partial flexor tendon synovectomy/excision biopsy synovitis, right carpal tunnel Surgeon:: Baldo Sexton MD UNIT SECY:: Andrey Lehman Anesthesia: LMA Estimated blood loss (mL): 5 Clinical Note:: Patient is 49-year-old female with bilateral carpal tunnel syndrome with long-standing symptoms. Previously EMG/NCV results confirmed carpal tunnel syndrome on both sides. Patient is having significant and disabling symptoms on the both sides and has failed to respond adequately to conservative management. Therefore the carpal tunnel release surgery is necessary to relieve symptoms, preserve the remaining fibers of the median nerve, improve function and decrease the pain, paresthesias and weakness and to prevent permanent nerve damage. Please refer to my office note for full details. Operative findings:: The intraoperative findings showed the median nerve to be very tightly compressed and hyperemic. The flexor retinaculum was noted to be thick and tight. There was marked synovitis in the carpal tunnel. Part of the synovium was excised and sent for histopathological examination. There was no evidence of any space-occupying lesions within the carpal tunnel. Operative note:: On the day of the surgery the patient was met in the preoperative area. Patient was positively identified and the operative site was marked and initialed by me. A physical examination was performed and the chart was updated. I again discussed the procedure, risks and benefits and alternatives with the patient. The complications discussed include but are not limited to- bleeding, injury to nerves, blood vessels and tendons, infection, wound dehiscence, incomplete relief/continued pain, persistent numbness, palmar hypersensitivity, pillar pain, DVT/PE, complex regional pain syndrome(CRPS), worsening of nerve damage, failure of the condition to improve, incomplete return of function, bowstringing of tendons, weakness of electro mechanical technician strength, recurrence, failure of the surgery to accomplish the desired goals, decreased use of the hand, loss of use of the arm, loss of the hand or arm, loss of life. Likely need for further surgery in the future has been discussed. I've indicated to the patient where the proposed incision would be made and also discussed the possibility of extending the incision if needed to accomplish an effective release. We have discussed how the goal of surgery is to protect the fibers which have remained healthy and hopefully reverse the symptoms of the fibers which are compromised but still recoverable. We have explained that, fibers that are permanently damaged will not recover. Patient asked appropriate questions and all have been answered by me. Patient wished to proceed with the surgery. Patient understood the risks, agreed to proceed with surgery, signed the consent form and no guarantees or assurances were given or implied. The patient was brought to the operating room and placed supine on the operating table. The right upper extremity was placed over a side table. All the bony prominences were well-padded. The right upper extremity was prepped and draped in the usual sterile fashion. A preprocedure timeout was performed as per hospital policy. The skin incision was marked using the Saunders's landmarks, just ulnar to the thenar crease. The limb was exsanguinated with the Esmarch bandage and tourniquet was inflated to 250 mmHg. Please see nursing records for the total tourniquet time. Saunders's landmarks were utilized and a skin incision was made parallel and just ulnar to the thenar crease with a 15 blade. Blunt tissue dissection was carried through the subcutaneous tissue down to the palmar fascia. The palmar fascia was in
== END 2019-07-07 10:40 | disposition home or self-care (01) ==
LOC: OR 06:02
PROVIDERS: PCP Family Medicine; Visit Provider Orthopaedic Surgery
PROC: (CPT 64721; principal; 2019-07-07 07:30)
DX: G56.01 Carpal tunnel syndrome, right upper limb (principal); M65.841 Other synovitis and tenosynovitis, right hand; Z88.2 Allergy status to sulfonamides; Z79.899 Other long term (current) drug therapy
CPT/HCPCS: 26130; 64721; 88305; 96374; J2405

== ENCOUNTER → 2019-08-10 07:02 | Outpatient (CLI) | payer MEDICARE, MEDICAID, SELFPAY ==
[2019-08-10 07:27] LABS: Basophils # 0.7 K/mm3 (0-0.2); Basophils % 7.8 % (0.1-2.0); Eosinophils # 0.2 K/mm3 (0.0-0.4); Eosinophils % 1.9 % (0.1-12.0); Hemoglobin 12.4 g/dL (12.2-16.2); Lymphocytes # 3.3 K/mm3 (0.7-4.5); Lymphocytes % 37.7 % (10-50); Mean Corpuscular HGB Conc 30.1 g/dL (31.8-35.4); Mean Corpuscular Hemoglobin 28.3 pg (27.0-31.2); Mean Corpuscular Volume 93.8 fl (81-99); Monocytes # 0.3 K/mm3 (0.1-1.0); Monocytes % 3.2 % (1.7-9.3); Neutrophils % 57.2 % (37.0-80.0); Platelet Count 290 K/mm3 (142-424); Red Blood Count 4.38 M/mm3 (4.20-5.40); Red Cell Distribution Width 20.9 % (11.5-17.5); White Blood Count 8.8 K/mm3 (4.8-10.8)
[2019-08-10 10:29] LABS: Chloride 101 mmol/L (98-107); Potassium 4.2 mmoL/L (3.5-5.1); Sodium 137 mmol/L (136-145)
[2019-08-10 10:32] LABS: Alanine Aminotransferase 23 U/L (12-78); Albumin Level 3.8 g/dl (3.5-5.0); Albumin/Globulin Ratio 1.2 (1.1-1.8); Alkaline Phosphatase 115 U/L (38-126); Anion Gap 11.2 mEq/L (5-15); Aspartate Amino Transferase 31 U/L (14-36); Bilirubin,Total 0.4 mg/dl (0.2-1.3); Blood Urea Nitrogen 13 mg/dl (7-17); Carbon Dioxide 29 mmol/L (22.0-30.0); Estimated Glomerular Filt Rate 66 ml/min (>60); GFR (African American) 80 ML/MIN (>60); Globulin 3.1 g/dL (1.3-3.2); Total Protein,Serum 6.9 g/dl (6.3-8.2)
[2019-08-10 10:33] LABS: Calcium 9.4 mg/dl (8.4-10.2); Glucose 252 mg/dl (74-100)
[2019-08-10 10:55] LABS: Coronavirus 19 IgG Antibody Negative (Negative); Coronavirus 19 IgM Antibody Negative (Negative)
== END ==
PROVIDERS: Visit Provider Orthopaedic Surgery
DX: Z01.818 Encounter for other preprocedural examination (principal); G56.02 Carpal tunnel syndrome, left upper limb
CPT/HCPCS: 36415; 80053; 85025; 86328

== ENCOUNTER 2019-08-11 06:04 | Day surgery (SDC) | payer MEDICARE, MEDICAID, SELFPAY ==
[2019-08-10 09:14] VITALS: BMI 50.8
[2019-08-11] VITALS (11 sets, daily range): BP systolic 121–156; BP diastolic 68–97; PULSE 60–81; RESP 12–20; TEMP 36.3–36.6; O2SAT 92–96
--- NOTE | 2019-08-11 09:05 | HMH.ANESCL ---
[facility] Anesthesia Checklist - Structural Data Admitted From: Home Planned Operative Procedure/s: l carpal tunnel release Consent for Planned Operative Procedure(s) Verified: Yes - Additional verifications Anesthesia Reactions: No Hx Blood Transfusions: No Blood Transfusion Reaction: No - Airway Assessment C-Spine Mobility Assessed: Yes TMJ Mobility Assessed: Yes Dentition: Edentulous - Neurological Assessment Level of Consciousness: Awake, Alert, Appropriate - Anesthesia Plan Anesthesia Risk discussed: Yes Anesthesia Plan: Verified ASA Class: III Anesthesia Type: General [facility] History I have reviewed the patient's past medical history: Yes Medical History: Reports:: Anxiety, Chronic Obstructive Pulmonary Disease (COPD), Depression, Gastroesophageal Reflux Disease(GERD), Hyperlipidemia, Hypertension, Seizures Denies:: Cancer, Diabetes Mellitus Type 1, Diabetes Mellitus Type 2, Internal Pacemaker, MRSA *Have you ever received a pneumonia vaccine?: Yes *Have you received a flu vaccine this season?: Yes Other Medical History: Reports: Arthritis. Denies: Blood Transfusion Reaction Anesthesia experience/problems:: none Laterality Cases: Left: Breast Biopsy Other Surgeries: Yes: Cardiac Catheterization, Cholecystectomy, , Hysterectomy-Total. No: Pacemaker Amputation: No Fractures: Yes (L ankle) - *Social History Educational Level: Completed High School Smoking Status: Former smoker Tobacco Type: cigarettes # Packs/Day (cigarettes): 1 #Yrs smoked (if former smoker): 30 Alcohol Intake: never Substance Use Type: denies use *Occupational Status:: disabled Housing: house Household Members: spouse *Travel in the last 8 weeks: None - Psychiatric History Pschychiatric History:: Reports:: Anxiety, Depression Family Hx:: Cancer, Coronary Artery Disease, Diabetes, Heart Attack, Hyperlipidemia, Hypertension
--- NOTE | 2019-08-11 09:06 | P.PN_ITS ---
[facility] Anesthesia Record Part I Intake, IV Amount: 1,200 Estimated blood loss (mL): 0 Urine output (mL): 0 Blood Pressure: 140/85 SaO2: 95 Pulse Rate: 81 Respiratory Rate: 12 Temperature: 97.5 F Patient is:: Awake, Stable Stable to PACU at:: 08:55
--- NOTE | 2019-08-11 09:28 | HMH.OPNOTE ---
Date of procedure: 08/11/19 Pre-op Diagnosis:: Carpal tunnel syndrome, left Post-op Diagnosis:: Same Procedure performed:: Open carpal tunnel release, left wrist Surgeon:: Baldo Sexton MD REAL ESTATE VALUER:: Frankie Wright Anesthesia: LMA Estimated blood loss (mL): 2 Clinical Note:: Patient is 49-year-old female with bilateral carpal tunnel syndrome with long-standing symptoms. EMG/NCV studies confirmed carpal tunnel syndrome on both sides and she previously underwent successful carpal tunnel release on the right side. Patient is also having significant and disabling symptoms on the left side and has failed to respond adequately to conservative management. Therefore the carpal tunnel release surgery is necessary to relieve symptoms, preserve the remaining fibers of the median nerve, improve function and decrease the pain, paresthesias and weakness and to prevent permanent nerve damage. Please refer to my office note for full details. Operative findings:: The intraoperative findings showed the median nerve to be very tightly compressed and hyperemic. The flexor retinaculum was noted to be thick and tight. There was mild synovitis in the carpal tunnel. There was no evidence of any space-occupying lesions within the carpal tunnel. Operative note:: On the day of the surgery the patient was met in the preoperative area. Patient was positively identified and the operative site was marked and initialed by me. A physical examination was performed and the chart was updated. I again discussed the procedure, risks and benefits and alternatives with the patient. The complications discussed include but are not limited to- bleeding, injury to nerves, blood vessels and tendons, infection, wound dehiscence, incomplete relief/continued pain, persistent numbness, palmar hypersensitivity, pillar pain, DVT/PE, complex regional pain syndrome(CRPS), worsening of nerve damage, failure of the condition to improve, incomplete return of function, bowstringing of tendons, weakness of podiatric physician strength, recurrence, failure of the surgery to accomplish the desired goals, decreased use of the hand, loss of use of the arm, loss of the hand or arm, loss of life. Likely need for further surgery in the future has been discussed. I've indicated to the patient where the proposed incision would be made and also discussed the possibility of extending the incision if needed to accomplish an effective release. We have discussed how the goal of surgery is to protect the fibers which have remained healthy and hopefully reverse the symptoms of the fibers which are compromised but still recoverable. We have explained that, fibers that are permanently damaged will not recover. Patient asked appropriate questions and all have been answered by me. Patient wished to proceed with the surgery. Patient understood the risks, agreed to proceed with surgery, signed the consent form and no guarantees or assurances were given or implied. The patient was brought to the operating room and placed supine on the operating table. The left upper extremity was placed over a side table. All the bony prominences were well-padded. A general anesthesia was administered by the bellstand attendant. A well-padded tourniquet cuff was placed over the upper arm. The left upper extremity was prepped and draped in the usual sterile fashion. A preprocedure timeout was performed as per hospital policy. The skin incision was marked using the Saunders's landmarks, just ulnar to the thenar crease. The limb was exsanguinated with the Esmarch bandage and tourniquet was inflated to 250 mmHg. Please see nursing records for the total tourniquet time. Saunders's landmarks were utilized and a skin incision was made parallel and just ulnar to the thenar crease with a 15 blade. Blunt tissue dissection was carried through the subcutaneous tissue down to the palmar fascia. The palmar fascia was incised with the knife to reveal the transverse carpal ligament. The transverse carpa
--- NOTE | 2019-08-11 13:48 | HMH.ANESII ---
[facility] Anesthesia Record Part II Discharge Time: 09:25 Destination: Surgical Day Care (OP Surgery) PACU nurse assessment reviewed?: Yes Patient Condition:: Good Anesthesia Complications:: None Swallowing reflex intact?: Yes Cyanosis?: No Blood Pressure: 134/72 Pulse Rate: 68 Temperature: 97.9 F Mental Status: Alert & Oriented Pain level:: 4 Nausea and/or vomitting:: None Intake, IV Amount: 0
== END 2019-08-11 10:00 | disposition home or self-care (01) ==
LOC: OR 06:05
PROVIDERS: PCP Family Medicine; Visit Provider Orthopaedic Surgery
PROC: (CPT 64721; principal; 2019-08-11 07:30)
DX: G56.02 Carpal tunnel syndrome, left upper limb (principal)
CPT/HCPCS: 64721; 96374; J2405

== ENCOUNTER → 2019-09-19 09:17 | Outpatient (CLI) | payer MEDICARE, MEDICAID, SELFPAY ==
--- NOTE | 2019-09-19 09:23 | XR_ITS ---
PROCEDURE: XR WRIST RT MIN 3V CLINICAL INDICATION: rt wrist pain COMPARISON: CR XR WRIST RT MIN 3V from 05/31/2019 CR XR WRIST LT MIN 3V from 05/31/2019 FINDINGS: There is a cystic lesion involving the mid aspect of the scaphoid measuring approximately 8 mm not significantly changed. There remains mild prominence of the scapholunate space. Minimal osteoarthritic changes are present at the scapho trapezium joint Other findings:None. IMPRESSION: Overall no change in the cystic lesion of the scaphoid and mild prominence of the scapholunate space which is nonspecific but could be seen with scapholunate ligamentous injury. Dictated b Neville Piper MD 09/19/2019 11:05 Neville Piper MD in [place] 09/19/2019 11:05
== END ==
PROVIDERS: PCP Family Medicine; Visit Provider Orthopaedic Surgery
DX: M25.531 Pain in right wrist (principal)
CPT/HCPCS: 73110

== ENCOUNTER → 2019-11-09 09:56 | Outpatient (CLI) | payer MEDICARE, MEDICAID, SELFPAY ==
--- NOTE | 2019-11-09 10:00 | XR_ITS ---
PROCEDURE: XR WRIST RT MIN 3V CLINICAL INDICATION: preop for cyst removal Scaphoid cyst COMPARISON: CR XR WRIST LT MIN 3V from 05/31/2019 CR XR WRIST RT MIN 3V from 05/31/2019 CR XR WRIST RT MIN 3V from 09/19/2019 FINDINGS: A 10 mm cyst is present within the mid aspect of the scaphoid. There is some cortical regularity involving the mid aspect of the scaphoid laterally which could be due to a nondisplaced fracture through the cyst wall. There is mild prominence of the scapholunate space as before. IMPRESSION: No change in the scaphoid cyst with questionable fracture along the cyst wall laterally. Dictated by: Neville Piper MD 11/09/2019 15:19 Neville Piper MD in [place] 11/09/2019 15:19
== END ==
PROVIDERS: PCP Family Medicine; Visit Provider Orthopaedic Surgery
DX: Z01.818 Encounter for other preprocedural examination (principal); M25.531 Pain in right wrist
CPT/HCPCS: 73110

== ENCOUNTER → 2019-11-16 08:08 | Outpatient (CLI) | payer MEDICARE, MEDICAID, SELFPAY ==
--- NOTE | 2019-11-16 08:44 | ECG_ITS ---
APPROVED REPORT Exam: Resting ECG HR:58 bpm ECG Measurements Heart Rate 58 AXES GA 162 P 16 QRSd 80 QRS 21 QT 460 T 17 QTc 451 Conclusion Sinus bradycardia with sinus arrhythmia Nonspecific T wave abnormality Abnormal ECG Electronically signed by : Andrey López, 11/18/2019 13:53:47
--- NOTE | 2019-11-16 08:45 | XR_ITS ---
PROCEDURE: XR CHEST 2V CLINICAL HISTORY: HTN,COPD,PRE-OP COMPARISON: CR CXR CHEST(2 VIEWS-NOT PORTABLE) from 07/28/2013 CR CXR2V XR chest 2V from 06/17/2018 FINDINGS: The cardiomediastinal silhouette and pulmonary vascularity are within normal limits. The lungs are clear without infiltrates, suspicious nodules, or pleural effusions. Mild degenerative changes thoracic spine with mild kyphosis. IMPRESSION: No acute findings. Dictated by: Neville Piper MD 11/16/2019 16:31 Neville Piper MD in [place] 11/16/2019 16:31
[2019-11-16 09:06] LABS: Basophils % 0.4 % (0.1-2.0); Eosinophils # 0.1 K/mm3 (0.0-0.4); Eosinophils % 1.2 % (0.1-12.0); Hematocrit 39.5 % (37.0-47.0); Lymphocytes # 2.1 K/mm3 (0.7-4.5); Lymphocytes % 33.4 % (10-50); Mean Corpuscular HGB Conc 30.3 g/dL (31.8-35.4); Mean Corpuscular Hemoglobin 26.4 pg (27.0-31.2); Mean Platelet Volume 7.1 fl (7.4-10.4); Monocytes # 0.3 K/mm3 (0.1-1.0); Monocytes % 5.4 % (1.7-9.3); Neutrophils # 3.7 K/mm3 (1.8-7.8); Neutrophils % 59.7 % (37.0-80.0); Platelet Count 276 K/mm3 (142-424); Red Blood Count 4.55 M/mm3 (4.20-5.40); Red Cell Distribution Width 14.4 % (11.5-17.5); White Blood Count 6.2 K/mm3 (4.8-10.8)
[2019-11-16 10:00] LABS: Chloride 104 mmol/L (98-107); Sodium 141 mmol/L (136-145)
[2019-11-16 10:02] LABS: Alanine Aminotransferase 21 U/L (12-78); Aspartate Amino Transferase 35 U/L (14-36); Blood Urea Nitrogen 10 mg/dl (7-17); Estimated Glomerular Filt Rate 66 ml/min (>60); GFR (African American) 80 ML/MIN (>60)
[2019-11-16 10:03] LABS: Albumin Level 3.8 g/dl (3.5-5.0); Albumin/Globulin Ratio 1.2 (1.1-1.8); Alkaline Phosphatase 96 U/L (38-126); Bilirubin,Total 0.4 mg/dl (0.2-1.3); Calcium 9.3 mg/dl (8.4-10.2); Carbon Dioxide 30 mmol/L (22.0-30.0); Globulin 3.1 g/dL (1.3-3.2); Glucose 157 mg/dl (74-100); Total Protein,Serum 6.9 g/dl (6.3-8.2)
[2019-11-16 10:21] LABS: Coronavirus 19 IgG Antibody Negative (Negative); Coronavirus 19 IgM Antibody Negative (Negative)
[2019-11-16 11:23] LABS: Hemoglobin A1C 7.5 % (4.0-6.0)
== END ==
PROVIDERS: Visit Provider Orthopaedic Surgery
DX: M25.531 Pain in right wrist; M85.641 Other cyst of bone, right hand; G89.29 Other chronic pain; E11.9 Type 2 diabetes mellitus without complications; Z79.84 Long term (current) use of oral hypoglycemic drugs; Z01.818 Encounter for other preprocedural examination
CPT/HCPCS: 36415; 71046; 80053; 83036; 85025; 86328; 93005

== ENCOUNTER 2019-11-17 07:09 | Day surgery (SDC) | payer MEDICARE, MEDICAID, SELFPAY ==
[2019-11-17] VITALS (10 sets, daily range): BP systolic 104–136; BP diastolic 50–66; PULSE 69–85; RESP 14–20; TEMP 36.1–36.4; O2SAT 91–97; BMI 51.0
--- NOTE | 2019-11-17 13:32 | XR_ITS ---
PROCEDURE: XR WRIST RT 2V CLINICAL INDICATION: RT WRIST CYST REMOVAL COMPARISON: No exams were available for comparison FINDINGS: Fluoroscopy time: 10 seconds C-arm utilized for cyst removal of the scaphoid. Defect also noted in the distal radius possibly due to a bone harvesting site. Please correlate with surgical procedure. IMPRESSION: Good alignment status post cyst removal/repair of the scaphoid Dictated by: Neville Piper MD 11/18/2019 07:16 Neville Piper MD in [place] 11/18/2019 07:16
--- NOTE | 2019-11-17 13:51 | HMH.ANESI ---
[facility] Anesthesia Record Part I Intake, IV Amount: 1,200 Estimated blood loss (mL): 5 Urine output (mL): 0 (NM) Blood Products used (#): none Blood Pressure: 129/65 SaO2: 92 Pulse Rate: 85 Respiratory Rate: 20 Temperature: 97.0 F Patient is:: Drowsy, Nasal O2, Stable Stable to PACU at:: 13:45
--- NOTE | 2019-11-17 13:57 | P.PN_ITS ---
[facility] Anesthesia Checklist - Patient Identification Patient Identification: Arm Band, Verbal (Name & ) - Structural Data Admitted From: Home Planned Operative Procedure/s: Open curettage of bone cyst with bone graft Consent for Planned Operative Procedure(s) Verified: Yes Verified Documents: Surgical Consent, History and Physical - NPO Status Verified Time NPO: 00:00 - Chart Verification Results Verified: CBC, BMP - Additional verifications Fingerstick Blood Glucose: 146 Anesthesia Reactions: No Hx Blood Transfusions: No Blood Transfusion Reaction: No - Airway Assessment C-Spine Mobility Assessed: Yes (MP 3, thick neck, large tongue, supple) TMJ Mobility Assessed: Yes Dentition: Edentulous - Neurological Assessment Level of Consciousness: Awake, Alert, Appropriate, Follows Commands Hx Seizures: Yes Numbness or tingling in extremities: No - Anesthesia Plan Anesthesia Risk discussed: Yes Anesthesia Plan: Verified ASA Class: III Anesthesia Type: General w/block [facility] History I have reviewed the patient's past medical history: Yes Medical History: Reports:: Anxiety, Chronic Obstructive Pulmonary Disease (COPD), Depression, Diabetes Mellitus Type 2, Gastroesophageal Reflux Disease(GERD), Hyperlipidemia, Hypertension, Seizures (>3 yrs) Denies:: Cancer, Diabetes Mellitus Type 1, Internal Pacemaker, MRSA *Have you ever received a pneumonia vaccine?: Yes *Have you received a flu vaccine this season?: Yes Other Medical History: Reports: Arthritis. Denies: Blood Transfusion Reaction Anesthesia experience/problems:: No prior complications Laterality Cases: Left: Breast Biopsy, Bilateral: Carpal Tunnel Release Other Surgeries: Yes: Cardiac Catheterization, Cholecystectomy, , Hysterectomy-Total. No: Pacemaker Amputation: No Fractures: Yes (L ankle) - *Social History Last grade of school completed: High school graduate Smoking Status: Never smoker Tobacco Type: cigarettes # Packs/Day (cigarettes): 1 #Yrs smoked (if former smoker): 30 Alcohol Intake: never Substance Use Type: denies use *Occupational Status:: disabled Housing: house Household Members: spouse *Travel in the last 8 weeks: None - Psychiatric History Pschychiatric History:: Reports:: Anxiety, Depression Family Hx:: No significant family history
[2019-11-17 14:08] LABS: POC Glucose,Bedside 163 (70-110)
--- NOTE | 2019-11-17 14:26 | XR_ITS ---
PROCEDURE: XR WRIST RT MIN 3V CLINICAL INDICATION: post op Follow-up surgery COMPARISON: CR XR WRIST RT MIN 3V from 05/31/2019 CR XR WRIST LT MIN 3V from 05/31/2019 CR XR WRIST RT MIN 3V from 09/19/2019 CR XR WRIST RT MIN 3V from 11/09/2019 FINDINGS: There is a splint in place along the ulnar aspect. There is a defect present in the distal radius which could be due to a bone harvesting site. This area measures 12 mm. Persistent lucency is noted in the mid aspect of the scaphoid which appears somewhat less prominent compared to the previous exam. There is good alignment. There is a cortical defect along the anterior aspect of the distal radius possibly at the bone harvesting site with a nondisplaced fracture at this area. IMPRESSION: Postsurgical changes as described above Dictated by: Neville Piper MD 11/17/2019 15:52 Neville Piper MD in [place] 11/17/2019 15:52
--- NOTE | 2019-11-17 15:37 | HMH.OPNOTE ---
Date of procedure: 11/17/19 Pre-op Diagnosis:: Ganglion cyst scaphoid, right wrist Post-op Diagnosis:: Same Procedure performed:: Curettage and bone grafting of scaphoid cyst, right wrist Surgeon:: Baldo Sexton MD [employer] Commercial Salesperson(s):: Toma Gutierrez [employer]MENT[employer] EM[employer]CI[employer] PLANNER:: Marc Suarez Anesthesia: GETA, regional (Supraclavicular nerve block) Estimated blood loss (mL): 10 Clinical Note:: Patient is a 48 year old right hand dominant female with history of radial sided right wrist pain for many months. X-rays and MRI scan of the right wrist confirmed a complex cystic lesion of the scaphoid with thinned out cortices. Clinically she has tenderness over the radial aspect of the wrist joint especially over the scaphoid tubercle. Also the cortices of the scaphoid are thin with risk of pathological fracture especially if she were to have any injury. Given this situation, patient opted for surgical remediation in the form of open curettage and bone grafting. She has multiple medical problems including angina, diabetes mellitus, hypertension, hyperlipidemia, obesity, history of seizure disorder, cardiomyopathy and diastolic dysfunction among others. She is an ex-smoker. Please refer to my office note for full details. Operative findings:: Cystic lesion at the level of waist of the scaphoid as noted on the preoperative images. The volar cortex was very thin. Mucinous material was noted in the cyst. The cyst turner were curetted from the bone and sent for histopathological examination. No soft tissue component was noted. After curetting the cyst the cavity was filled with autologous bone graft and DBM. Operative note:: On the day of the procedure, the patient was met in the preoperative area. The patient was positively identified, physical examination performed and documented. I have again discussed the details of the procedure, risks and benefits, alternatives and the expected outcomes. The complications discussed include but are not limited to infection, injury to nerves, ligaments, tendons and blood vessels, injury to the articular surfaces with the possibility of arthritis in future, problems with wound healing and skin necrosis requiring further surgery, tendon rupture, scaphoid fracture, incisional scar (cosmesis), scar tenderness/contracture, DVT/PE, wrist stiffness, CRPS (complex regional pain syndrome- pain, sensory and temperature changes, swelling and stiffness), painful scar, incomplete relief of pain, incomplete return of function, recurrence and likely need for further surgery in future and also the risks of anesthesia including heart attack, stroke, and even . I have discussed how there is a small but real possibility of loss of use of the arm, loss of the limb or loss of life itself. I have also explained how additional surgery may be required if there are any complications or the lesion recurs. We have also discussed the postoperative recovery and rehabilitation required and the likely need for hand therapy, the possibility of stiffness and chronic pain. We have discussed the need for bone grafting and the possibility of needing internal fixation with a screw. We have discussed various bone grafting options including both autograft and allograft. We have discussed the various donor sites including distal radius, proximal ulna, calcaneus and iliac crest. We also discussed about the donor site morbidity including infection, injury to structures, pain, stiffness, surgical scar, risk of donor site fracture. We have also discussed the option of nonsurgical management including rest, activity modification, NSAIDs/simple pain medication as needed. I have told the patient that the bone cyst is most likely benign and we would send it for pathological examination after curettage. However, patient understands that there is a very small possibility of it being malignant and needing further treatment. All the questions were answered by me and patient verbalized a good unde
[2019-11-18 08:55] LABS: POC Glucose,Bedside 146 (70-110)
[2019-11-18 09:22] VITALS: BP 124/66; PULSE 78; TEMP 36.1
--- NOTE | 2019-11-18 09:22 | P.PN_ITS ---
[facility] Anesthesia Record Part II Discharge Time: 14:25 Destination: Surgical Day Care (OP Surgery) PACU nurse assessment reviewed?: Yes Patient Condition:: Good Anesthesia Complications:: None Swallowing reflex intact?: Yes Cyanosis?: No Blood Pressure: 124/66 Pulse Rate: 78 Temperature: 97 F Mental Status: Alert & Oriented Pain level:: 0 Nausea and/or vomitting:: None Intake, IV Amount: 0
== END 2019-11-17 15:24 | disposition home or self-care (01) ==
LOC: OR 07:10
PROVIDERS: PCP Family Medicine; Visit Provider Orthopaedic Surgery
PROC: (CPT 25111; principal; 2019-11-17 09:00)
DX: M67.431 Ganglion, right wrist (principal); E11.9 Type 2 diabetes mellitus without complications; I10 Essential (primary) hypertension
CPT/HCPCS: 25111; 73100; 73110; 76000; 82962; 88304; 96374; C1713; J2405

== ENCOUNTER → 2019-11-29 09:35 | Outpatient (CLI) | payer MEDICARE, MEDICAID, SELFPAY ==
--- NOTE | 2019-11-29 09:40 | XR_ITS ---
PROCEDURE: XR WRIST RT MIN 3V CLINICAL INDICATION: removal of bone cyst postop; cast applied COMPARISON: CR XR WRIST RT MIN 3V from 09/19/2019 CR XR WRIST RT MIN 3V from 11/09/2019 XA XR WRIST RT 2V from 11/17/2019 CR XR WRIST RT MIN 3V from 11/17/2019 FINDINGS: The radiolucency of the distal radius diametaphyseal zone is again noted presumably the bone harvesting site with a cortical infraction volar aspect of the radius. Detail of the navicular bone is somewhat degraded due to the overlying cast but the prominent cystic lesion of the navicular seen on previous studies appears less radiolucency presumably secondary to placement of harvested bone fragments. IMPRESSION: Satisfactory postsurgical changes distal radius and navicular bone Dictated by: Dr. Eduard Kaba MD 11/29/2019 10:10 Dr. Eduard Kaba MD in [place] 11/29/2019 10:10
== END ==
PROVIDERS: PCP Family Medicine; Visit Provider Orthopaedic Surgery
DX: Z09 Encounter for follow-up examination after completed treatment for conditions other than malignant neoplasm; M85.641 Other cyst of bone, right hand
CPT/HCPCS: 73110

== ENCOUNTER → 2019-12-20 09:04 | Outpatient (CLI) | payer MEDICARE, MEDICAID, SELFPAY ==
--- NOTE | 2019-12-20 09:08 | XR_ITS ---
PROCEDURE: XR WRIST RT MIN 3V CLINICAL INDICATION: sp cyst removal of RT wrist; out of cast Follow-up surgery COMPARISON: CR XR WRIST RT MIN 3V from 09/19/2019 CR XR WRIST RT MIN 3V from 11/09/2019 CR XR WRIST RT MIN 3V from 11/17/2019 CR XR WRIST RT MIN 3V from 11/29/2019 FINDINGS: The cast has been removed. Lucency remains in the mid aspect of the scaphoid and a somewhat less apparent compared to the preoperative exam of 11/09/2019. A defect is present in the distal radius presumed to be from bone harvesting site. There is fracture of the anterior cortex at this area with the fracture fragment measuring 1 cm and displaced anteriorly by approximately 3 mm. IMPRESSION: Postsurgical changes of the scaphoid and distal radius as described above Dictated by: Neville Piper MD 12/20/2019 09:33 Neville Piper MD in [place] 12/20/2019 09:33
== END ==
PROVIDERS: PCP Family Medicine; Visit Provider Orthopaedic Surgery
DX: G89.29 Other chronic pain (principal); M25.531 Pain in right wrist; M85.649 Other cyst of bone, unspecified hand; Z09 Encounter for follow-up examination after completed treatment for conditions other than malignant neoplasm
CPT/HCPCS: 73110

== ENCOUNTER 2019-12-29 08:00 | Outpatient (RCR) | payer MEDICARE, MEDICAID, SELFPAY ==
--- NOTE | 2019-12-26 15:02 | HMH.OTOPEV ---
OT Inpatient Evaluation Rehab OT Outpatient Eval Start: 12/26/19 14:39 Freq: Status: Active Protocol: Document 12/26/19 14:39 SULMAOZZY (Rec: 12/26/19 15:01 SULMAOZZY [id number]) Electronically Signed By Terri Holloway OT 12/26/19 14:39 Outpatient Therapy Subjective History Subjective History 48 year old female who is right hand dominant with hx of radial sided right wrist pain for ~6 months. x-ray and MRI scan of the R wrist confirmed a complex cystic lesion of the scaphoid with thinned out cortices. Patient referred to OT OP services for hand therapy after s/p curettage and bone grafting of scaphoid cyst, right wrist on 11/17/19. PMH: angina, DM, HTN, HLD, obesity, hx of seizures, cardiomyopathy and diastolic dysfunction among others. R hand digitis WFL. Chief Complaint Pain Symptom Type Ache Symptoms Relieved By Ice Symptoms Aggravated By Physical Activity Prior Functional Limitations None Current Functional Limitations Reaching,Housework,Desk Work/ Reading Symptom Description Constant and Continuous Level of pain today (0-10) 7 Pain scale - at its best (0-10) 7 Pain scale - at its worst (0-10) 9 Wrist/Hand Eval Wrist Range of Motion Right Wrist Extension Active Range of Motion ( 32 degrees) Wrist Flexion Active Range of Motion ( 40 degrees) Wrist Radial Deviation Active Range of 20 Motion (degrees) Wrist Ulnar Deviation Active Range of 30 Motion (degrees) Forearm Supination Passive Range of 60 Motion (degrees) Forearm Pronation Passive Range of 90 Motion (degrees) Wrist Manual Muscle Testing Right Wrist Extension Strength Grade 3+ Fair+ Wrist Flexion Strength Grade 3+ Fair+ Wrist Radial Deviation Strength Grade 3+ Fair+ Wrist Ulnar Deviation Strength Grade 3+ Fair+ Forearm Supination Strength Grade 3+ Fair+ Forearm Pronation Strength Grade 3+ Fair+ Player Development Executive/Pinch Strength Left Player Development Executive Strength Measurement (lbs) 40 Right Player Development Executive Strength Measurement (lbs) 15 OT Outpatient Assessment Impairments Problems/Impairments Impaired Range of Motion, Impaired Strength,Impaired Endurance,Subjective C/O Pain Prognosi
== END 2019-12-29 08:05 | disposition home or self-care (01) ==
LOC: OT 08:00
PROVIDERS: PCP Family Medicine; Visit Provider Orthopaedic Surgery
DX: M79.641 Pain in right hand (principal); M25.531 Pain in right wrist; M85.649 Other cyst of bone, unspecified hand; G89.29 Other chronic pain; Z09 Encounter for follow-up examination after completed treatment for conditions other than malignant neoplasm
CPT/HCPCS: 97014; 97035; 97140; 97165; 97530; G0283

== ENCOUNTER → 2020-02-07 08:34 | Outpatient (CLI) | payer MEDICARE, MEDICAID, SELFPAY ==
--- NOTE | 2020-02-07 08:40 | XR_ITS ---
PROCEDURE: XR WRIST RT MIN 3V CLINICAL INDICATION: sp Curettage/bone grafting of scaphoid cyst COMPARISON: CR XR WRIST RT MIN 3V from 11/17/2019 CR XR WRIST RT MIN 3V from 12/20/2019 FINDINGS: The bone harvesting site distal radius is stable and unchanged in appearance from recent studies. There is a small bone sliver fragment volar aspect of the distal radius at the harvesting site as seen previously. The radiolucency in the mid portion of the navicular bone is again seen, the remaining carpal bones appear intact. IMPRESSION: Stable postsurgical changes distal radius and navicular bone Dictated by: Dr. Eduard Kaba MD 02/07/2020 10:59 Dr. Eduard Kaba MD in [place] 02/07/2020 10:59
== END ==
PROVIDERS: PCP Family Medicine; Visit Provider Orthopaedic Surgery
DX: M85.649 Other cyst of bone, unspecified hand (principal); Z09 Encounter for follow-up examination after completed treatment for conditions other than malignant neoplasm
CPT/HCPCS: 73110

== ENCOUNTER → 2020-02-15 08:29 | Outpatient (CLI) | payer MEDICARE, MEDICAID, SELFPAY ==
--- NOTE | 2020-02-15 08:34 | XR_ITS ---
PROCEDURE: XR KNEE RT 4V CLINICAL INDICATION: right knee pain COMPARISON: CR [id number] KNEE-3 VIEWS-RT from 01/12/2013 FINDINGS: No fracture or dislocation. No lytic or blastic change. There is normal mineralization. There are mild osteoarthritic changes involving all 3 compartments Other findings:None. IMPRESSION: Mild osteoarthritis Dictated by: Neville Piper MD 02/15/2020 18:42 Neville Piper MD in [place] 02/15/2020 18:42
== END ==
PROVIDERS: PCP Family Medicine; Visit Provider Orthopaedic Surgery
DX: M25.561 Pain in right knee (principal)
CPT/HCPCS: 73564

== ENCOUNTER → 2020-05-22 09:05 | Outpatient (CLI) | payer MEDICARE, MEDICAID, SELFPAY ==
--- NOTE | 2020-05-22 09:12 | XR_ITS ---
PROCEDURE: XR WRIST RT MIN 3V CLINICAL INDICATION: sp bone cyst removal dos 11/17/19 Follow-up surgery COMPARISON: CR XR WRIST RT MIN 3V from 05/31/2019 CR XR WRIST RT MIN 3V from 11/17/2019 CR XR WRIST RT MIN 3V from 11/29/2019 CR XR WRIST RT MIN 3V from 12/20/2019 CR XR WRIST RT MIN 3V from 02/07/2020 FINDINGS: No fracture or dislocation. No lytic or blastic change. There is normal mineralization. Postsurgical changes are present involving the scaphoid. A 5 mm cystic areas present involving the waist of the scaphoid not significantly changed from 02/07/2020. Lucency is noted in the distal shaft of the radius consistent bone harvesting site. Small bony fragment once again noted along the volar aspect of the bone harvesting site. There is mild prominence of the scapholunate space which may be seen with scapholunate ligament injury. Mild osteoarthritic changes are present at the radiocarpal joint. Other findings:None. IMPRESSION: No change in the postsurgical changes of the distal radius and scaphoid. Osteoarthritic changes of the radiocarpal joint with mild prominence of the scapholunate space Dictated by: Neville Piper MD 05/22/2020 16:06 Neville Piper MD in [place] 05/22/2020 16:06
== END ==
PROVIDERS: PCP Family Medicine; Visit Provider Orthopaedic Surgery
DX: Z09 Encounter for follow-up examination after completed treatment for conditions other than malignant neoplasm; M85.641 Other cyst of bone, right hand
CPT/HCPCS: 73110

== ENCOUNTER 2021-09-21 14:33 | Emergency (ER) | payer MEDICARE, MEDICAID, SELFPAY ==
[2021-09-21 14:34] VITALS: BP 159/67; PULSE 73; RESP 18; TEMP 36.7; O2SAT 94; BMI 44.5
--- NOTE | 2021-09-21 15:24 | HMH.EDGENADL ---
ED Disposition Clinical Impression: Hemorrhoid Qualifiers: Hemorrhoid type: first degree Qualified Code(s): K64.0 - First degree hemorrhoids Disposition: Home, Self-Care Condition on Discharge: Good Instructions: Hemorrhoids Additional Instructions: folow up general surgery, return here for worse Prescriptions: Hydrocortisone [Anusol-Hc] 30 gm TP BID 7 Days #30 gm Transmission Status: Pending to [id number] Referrals: Satinder Coleman MD [Staff Physician] - - Critical Care Critical Care Time: No Attestation: On 09/21/21, the high probability of a clinically significant, sudden or life threatening deterioration of the following system(s) required my full and direct attention, intervention and personal management. The time I documented below is in addition to time spent performing reported procedures but includes the following listed in this critical care notation. Medical Decision Making - Medical Records Medical records reviewed: Yes: I reviewed the patient's medical records. - Juan C Inquiry Pt receiving controlled substance: No General Adult HPI - General Stated complaint: Hemorrhoid pain Time Seen by Provider: 09/21/21 15:24 - History of Present Illness HPI narrative: bleeding hemmorhoid Onset (ago): hour(s) Radiation: non-radiation Severity: mild Consistency: intermittent Exacerbating factors: none Associated symptoms: denies other symptoms Treatments prior to arrival: none - Related Data Home Medications Medication Instructions Recorded Confirmed Gabapentin [Gabapentin 100mg Cap] 100 mg PO TID 06/17/18 05/22/20 Loratadine [Allergy] 10 mg PO DAILY 06/17/18 05/22/20 Omeprazole [Omeprazole 40mg 40 mg PO DAILY 06/17/18 05/22/20 Capsule] Pravastatin Sodium [Pravachol 40mg 40 mg PO DAILY 06/17/18 05/22/20 Tablet] Sertraline HCl [Zoloft] 100 mg PO BID 06/17/18 05/22/20 Tramadol HCl [Tramadol 50mg 50 mg PO Q4HP PRN 06/17/18 05/22/20 Tab] dilTIAZem HCL [Cartia Xt] 180 mg PO DAILY 06/17/18 05/22/20 nadoloL [Corgard 20mg tablet] 20 mg PO DAILY 06/17/18 05/22/20 Metformin HCl [Metformin 1000mg 1,000 mg PO DAILY 11/15/19 05/22/20 Tablets] Pioglitazone HCl 15 mg PO DAILY 11/15/19 05/22/20 Previous Rx's Medication Instructions Recorded Hydrocortisone [Anusol-Hc] 30 gm TP BID 7 Days #30 gm 09/21/21 Allergies Allergy/AdvReac Type Severity Reaction Status Date / Time codeine [CODEINE] Allergy Unknown Verified 05/22/20 09:56 Sulfa (Sulfonamide Allergy Unknown Verified 05/22/20 09:56 Antibiotics) [SULFA (SULFONAMIDE ANTIBIOTICS)] [facility] History - Hepatitis A Screen Attestation statement:: This patient has been screened for Hepatitis A risk factors. Medical History: Reports:: Anxiety, Chronic Obstructive Pulmonary Disease (COPD), Depression, Diabetes Mellitus Type 2, Gastroesophageal Reflux Disease(GERD), Hyperlipidemia, Hypertension, Seizures Denies:: Cancer, Diabetes Mellitus Type 1, Internal Pacemaker, MRSA Other Medical History: Reports: Arthritis. Denies: Blood Transfusion Reaction Comment: chronic lower back pain, morbid obesity Laterality Cases: Left: Breast Biopsy, Bilateral: Carpal Tunnel Release Other Surgeries: Yes: Cardiac Catheterization, Cholecystectomy, , Hysterectomy-Total. No: Pacemaker Amputation: No Fractures: Yes (L ankle) - Social History Smoking Status: Former smoker Tobacco Type: cigarettes # Packs/Day (cigarettes): 1 #Yrs smoked (if former smoker): 30 Alcohol Intake: never Substance Use Type: denies use Occupational Status: disabled Housing: house Household Members: spouse - Psychiatric History Pschychiatric History:: Reports:: Anxiety, Depression Family Hx:: No significant family history ROS Obtained: Yes All systems reviewed & no additional complaints Physical Exam - General General appearance: alert, in no apparent distress - Respiratory Respiratory exam: Absent: respiratory dis
--- NOTE | 2021-09-21 15:33 | PC.NURSE ---
assisted MD with rectal exam, pt tolerated well
[2021-09-21 15:59] VITALS: BP 133/57; PULSE 60; RESP 18; TEMP 36.7; O2SAT 94
== END 2021-09-21 15:55 | disposition home or self-care (01) ==
LOC: UTC 14:57 → ER 15:05
PROVIDERS: Emergency Provider Emergency Medicine; PCP Nurse Practitioner Family
DX: K64.0 First degree hemorrhoids (principal)
CPT/HCPCS: 99282

== ENCOUNTER 2022-03-28 12:32 | Emergency (ER) | payer MEDICARE, MEDICAID, SELFPAY ==
[2022-03-28 13:00] VITALS: BP 129/86; PULSE 81; RESP 17; TEMP 37.5; O2SAT 98; BMI 43.0
[2022-03-28 13:17] LABS: Apearance,Urine Clear (Clear); Bilirubin,Urine 1+ (Negative); Blood, Urine 3+ (Negative); Color,Urine Dark Yellow (Yellow); Glucose,Urine (UA) Negative (Negative); Ketones,Urine Negative (Negative); PH,Urine 5.5 (5.0-8.5); Protein,Urine 1+ (Negative); Specific Gravity, Urine 1.025 (1.005-1.030); UTC Leukocyte Esterase,Urine 2+ (Negative); UTC Nitrate,Urine Negative (Negative); Urobilinogen,Urine 1 EU/dl (0.2)
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
[2022-03-28 13:40] VITALS: BP 148/86; PULSE 79; RESP 18; TEMP 37.6; O2SAT 100
[2022-03-28 13:55] LABS: Microscopic, Urine URINE MICROSCOPIC (MICROSCOPIC)
[2022-03-28 14:14] LABS: Appearance,Urine CLEAR (Clear); Blood, Urine 3+ (Negative); Color,Urine YELLOW (Yellow); Glucose,Urine (UA) Negative (Negative); Ketones,Urine Negative (Negative); Leukocyte Esterase,Urine 2+ (Negative); Nitrate,Urine Negative (Negative); Protein,Urine 1+ (Negative); Specific Gravity, Urine 1.025 (1.005-1.030)
[2022-03-28 14:22] LABS: Bilirubin,Urine Negative (Negative)
[2022-03-28 14:36] LABS: Bacteria,Urine 1+ /lpf; RBC,Urine 20-50 #/hpf (0-3); WBC,Urine 20-50 #/hpf (0-3)
[2022-03-31 06:08] LABS: Neisseria gonorrhoeae, NAA Negative (Negative)
== END 2022-03-28 13:41 | disposition home or self-care (01) ==
PROVIDERS: Emergency Provider Nurse Practitioner; PCP Nurse Practitioner Family
DX: N39.0 Urinary tract infection, site not specified (principal)
CPT/HCPCS: 81001; 81003; 87086; 87088; 87186; 87491; 87591; 99212; 99213; G0463

== ENCOUNTER 2022-03-30 00:44 | Observation (INO) | payer MEDICARE, MEDICAID, SELFPAY ==
[2022-03-30] VITALS (13 sets, daily range): BP systolic 95–126; BP diastolic 44–82; PULSE 65–122; RESP 16–20; TEMP 36.8–39.1; O2SAT 93–100; BMI 43.0; BMI 42.0
--- NOTE | 2022-03-30 00:52 | ECG_ITS ---
APPROVED REPORT Exam: Resting ECG HR:119 bpm ECG Measurements Heart Rate 119 AXES QRSd 85 QRS 11 QT 418 T 46 QTc 489 Conclusion Sinus tach with first degree AV block and atrial abnormality MODERATE ST DEPRESSION [0.05+ mV ST DEPRESSION] ABNORMAL ECG UNCONFIRMED REPORT Electronically signed by : Andrey López MD 03/31/2022 18:55:43
--- NOTE | 2022-03-30 00:58 | PC.NURSE ---
Dr. Baugh spoke with Dr. Jose Baugh at bedside
--- NOTE | 2022-03-30 01:01 | XR_ITS ---
PROCEDURE INFORMATION: Exam: XR Chest Exam date and time: 03/30/2022 1:28 AM Age: 51 years old Clinical indication: Pain; Chest pressure TECHNIQUE: Imaging protocol: Radiologic exam of the chest. Views: 2 views. COMPARISON: CR XR CHEST 2V 11/16/2019 8:46 AM FINDINGS: Lungs: Unremarkable. No consolidation. Pleural spaces: Unremarkable. No pleural effusion. No pneumothorax. Heart/Mediastinum: Unremarkable. No cardiomegaly. Bones/joints: Mild degenerative disc changes noted throughout the thoracic spine IMPRESSION: No acute disease
--- NOTE | 2022-03-30 01:01 | CT_ITS ---
PROCEDURE INFORMATION: Exam: CT Abdomen And Pelvis With Contrast Exam date and time: 03/30/2022 1:45 AM Age: 51 years old Clinical indication: Abdominal pain TECHNIQUE: Imaging protocol: Computed tomography of the abdomen and pelvis with contrast. Radiation optimization: All CT scans at this facility use at least one of these dose optimization techniques: automated exposure control; mA and/or kV adjustment per patient size (includes targeted exams where dose is matched to clinical indication); or iterative reconstruction. Contrast material: ISOVUE; Contrast volume: 75 ml; Contrast route: IV; Other protocol: This patient has received 0 known CTs and 0 known cardiac nuclear medicine studies in the 12 months prior to the current study. COMPARISON: CR XR CHEST 2V 03/30/2022 1:28 AM FINDINGS: Liver: Normal. No mass. Gallbladder and bile ducts: The gallbladder is surgically absent. Pancreas: Normal. No ductal dilation. Spleen: Normal. No splenomegaly. Adrenal glands: Normal. No mass. Kidneys and ureters: There is diminished cortical enhancement along the posteromedial aspect of the upper left kidney concerning for focal pyelonephritis. Right kidney appears normal. No evidence of hydronephrosis. Stomach and bowel: Unremarkable. No obstruction. No mucosal thickening. Appendix: No evidence of appendicitis. Intraperitoneal space: Unremarkable. No free air. No significant fluid collection. Vasculature: Unremarkable. No abdominal aortic aneurysm. Lymph nodes: Unremarkable. No enlarged lymph nodes. Urinary bladder: Unremarkable as visualized. Reproductive: Uterus is surgically absent. No adnexal abnormality seen. Bones/joints: Moderate degenerative changes and osteophyte formation noted throughout the lower spine. Soft tissues: Unremarkable. IMPRESSION: Findings concerning for a small area of focal pyelonephritis in the upper left kidney. No evidence of hydronephrosis.
[2022-03-30 01:10] LABS: POC Glucose,Bedside 200 (70-110)
[2022-03-30 01:16] LABS: Basophils # 0.1 K/mm3 (0-0.2); Basophils % 0.8 % (0.1-2.0); Eosinophils # 0.1 K/mm3 (0.0-0.4); Hematocrit 40.4 % (37.0-47.0); Hemoglobin 13.4 g/dL (12.2-16.2); Lymphocytes # 1.3 K/mm3 (0.7-4.5); Lymphocytes % 13.7 % (10-50); Mean Corpuscular HGB Conc 33.2 g/dL (31.8-35.4); Mean Corpuscular Hemoglobin 27.6 pg (27.0-31.2); Mean Corpuscular Volume 83.3 fl (81-99); Mean Platelet Volume 7.7 fl (7.4-10.4); Monocytes # 0.5 K/mm3 (0.1-1.0); Monocytes % 4.9 % (1.7-9.3); Neutrophils # 7.6 K/mm3 (1.8-7.8); Neutrophils % 79.6 % (37.0-80.0); Platelet Count 263 K/mm3 (142-424); Red Blood Count 4.85 M/mm3 (4.20-5.40); Red Cell Distribution Width 14.9 % (11.5-17.5); White Blood Count 9.6 K/mm3 (4.8-10.8)
--- NOTE | 2022-03-30 01:18 | ECG_ITS ---
APPROVED REPORT Exam: Resting ECG HR:112 bpm ECG Measurements Heart Rate 112 AXES ND 151 P 19 QRSd 89 QRS 10 QT 343 T 37 QTc 409 Conclusion SINUS TACHYCARDIA MODERATE ST DEPRESSION [0.05+ mV ST DEPRESSION] ABNORMAL ECG UNCONFIRMED REPORT Electronically signed by : Andrey López MD 03/31/2022 18:54:38
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
[2022-03-30 01:28] LABS: Alanine Aminotransferase 22 U/L (12-78); Albumin Level 4.2 g/dl (3.5-5.0); Alkaline Phosphatase 110 U/L (38-126); Amylase 48 U/L (30-110); Aspartate Amino Transferase 23 U/L (14-36); Bilirubin,Total 0.9 mg/dl (0.2-1.3); Blood Urea Nitrogen 12 mg/dl (7-17); Calcium 8.6 mg/dl (8.4-10.2); Carbon Dioxide 25 mmol/L (22.0-30.0); Chloride 105 mmol/L (98-107); Creatinine Clearance Estimated 43 mL/min (50-200); Estimated Glomerular Filt Rate 52 ml/min (>60); GFR (African American) 63 ML/MIN (>60); Globulin 4.3 g/dL (1.3-3.2); Glucose 189 mg/dl (74-100); Lactic Acid 1.8 mmol/L (0.7-2.1); Lipase 78 U/L (23-300); Sodium 138 mmol/L (136-145); Total Protein,Serum 8.5 g/dl (6.3-8.2)
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
--- NOTE | 2022-03-30 01:34 | PC.NURSE ---
DR. BERNARDO NOTIFIED OF CRITICAL POTASSIUM
--- NOTE | 2022-03-30 01:35 | PC.NURSE ---
PATIENT BEING TRANSPORTED TO CT PER WC.
[2022-03-30 01:41] LABS: Troponin I < 0.01 ng/ml (0.00-0.034)
--- NOTE | 2022-03-30 01:44 | PC.NURSE ---
lab called with potassium of 3.0 repeated and verified. Notified
--- NOTE | 2022-03-30 02:15 | PC.NURSE ---
PELVIC EXAM PERFORMED PER DR. BERNARDO WITH MYSELF AT BEDSIDE. SWABS TAKEN. PATIENT TOLERATED PROCEDURE WELL. DR. BERNARDO SPOKE WITH HOSPITALIST FOR ADMISSION. JOJO CASTILLO WILL BE DOWN TO ED TO ASSESS PATIENT.
--- NOTE | 2022-03-30 02:41 | PC.NURSE ---
JOJO CASTILLO HOSPITALIST AT BEDSIDE.
--- NOTE | 2022-03-30 02:59 | PC.NURSE ---
PATIENT AMBULATED TO BATHROOM WITH ASSISTANCE PER [facility]. URINE SPECIMEN COLLECTED.
--- NOTE | 2022-03-30 03:02 | PC.NURSE ---
RECEIVED PHONE REPORT FROM GRACE MARIE RN/ED AT 0245. DIAGNOSIS PYELONEPHRITIS.
[2022-03-30 03:03] LABS: Microscopic, Urine URINE MICROSCOPIC (MICROSCOPIC)
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
--- NOTE | 2022-03-30 03:09 | PC.NURSE ---
PATIENT ARRIVED TO THE FLOOR AT 0305 VIA W/C AND ADMITTED TO RM 209.
[2022-03-30 03:11] LABS: Appearance,Urine CLEAR (Clear); Bilirubin,Urine Negative (Negative); Blood, Urine 1+ (Negative); Color,Urine YELLOW (Yellow); Glucose,Urine (UA) Negative (Negative); Ketones,Urine TRACE (Negative); Leukocyte Esterase,Urine Negative (Negative); Nitrate,Urine Negative (Negative); PH,Urine 6.5 (5.0-8.5); Protein,Urine 1+ (Negative); Specific Gravity, Urine <= 1.005 (1.005-1.030)
[2022-03-30 03:27] LABS: WBC,Urine Occasional #/hpf (0-3)
[2022-03-30 03:28] LABS: Amorphous Sediment,Urine Trace /lpf; Bacteria,Urine 1+ /lpf
[2022-03-30 04:49] LABS: Troponin I < 0.01 ng/ml (0.00-0.034)
--- NOTE | 2022-03-30 05:38 | PC.NURSE ---
PATIENT RESTING IN BED AT THIS TIME. NO C/O PAIN OR DISCOMFORT. REQUIRED 2 UNITS HUMALOG SUBCUT FOR FSBS 199. A/O X 4. PLEASANT AND COOPERATIVE. VSS/LOW GRADE TEMP 99.1.
[2022-03-30 07:45] LABS: Basophils % 0.6 % (0.1-2.0); Eosinophils # 0.1 K/mm3 (0.0-0.4); Eosinophils % 0.9 % (0.1-12.0); Hematocrit 38.7 % (37.0-47.0); Hemoglobin 12.5 g/dL (12.2-16.2); Lymphocytes # 1.5 K/mm3 (0.7-4.5); Mean Corpuscular HGB Conc 32.4 g/dL (31.8-35.4); Mean Corpuscular Hemoglobin 27.4 pg (27.0-31.2); Mean Corpuscular Volume 84.5 fl (81-99); Mean Platelet Volume 7.4 fl (7.4-10.4); Monocytes # 0.4 K/mm3 (0.1-1.0); Monocytes % 5.2 % (1.7-9.3); Neutrophils # 4.9 K/mm3 (1.8-7.8); Neutrophils % 71.4 % (37.0-80.0); Platelet Count 241 K/mm3 (142-424); Red Blood Count 4.58 M/mm3 (4.20-5.40); Red Cell Distribution Width 14.7 % (11.5-17.5); White Blood Count 6.8 K/mm3 (4.8-10.8)
[2022-03-30 07:57] LABS: Chloride 110 mmol/L (98-107); Sodium 144 mmol/L (136-145)
[2022-03-30 08:00] LABS: Blood Urea Nitrogen 12 mg/dl (7-17); Carbon Dioxide 28 mmol/L (22.0-30.0); Creatinine Clearance Estimated 41 mL/min (50-200); Estimated Glomerular Filt Rate 52 ml/min (>60); GFR (African American) 63 ML/MIN (>60); Glucose 103 mg/dl (74-100)
[2022-03-30 08:01] LABS: Magnesium 2.5 mg/dl (1.6-2.3)
[2022-03-30 08:31] LABS: Troponin I < 0.01 ng/ml (0.00-0.034)
--- NOTE | 2022-03-30 08:55 | HMH.PHAINT1 ---
Pharmacy Intervention Comments: MEDICATION RECONCILIATION COMPLETED ON PATIENT USING EXTERNAL FILL HISTORY FROM PHARMACY AND DONOVAN REPORT. -TOBY GAO, NAOMYD
--- NOTE | 2022-03-30 09:24 | PC.NURSE ---
K+ 3.0 - replacement given per md order prior to notification.
[2022-03-30 10:55] LABS: POC Glucose,Bedside 136 (70-110)
[2022-03-30 12:31] LABS: POC Glucose,Bedside 199 (70-110)
[2022-03-30 16:11] LABS: POC Glucose,Bedside 117 (70-110)
[2022-03-30 20:28] LABS: POC Glucose,Bedside 138 (70-110)
[2022-03-30 23:59] LABS: Coronavirus 19, PCR Not Detected (NotDetected); Influenza A, PCR Not Detected (NotDetected); Influenza B, PCR Not Detected (NotDetected)
[2022-03-31 04:00] VITALS: BP 102/37; PULSE 65; RESP 16; TEMP 37.3; O2SAT 96; BMI 41.9
[2022-03-31 05:52] LABS: POC Glucose,Bedside 137 (70-110)
--- NOTE | 2022-03-31 06:43 | PC.NURSE ---
Pt. is aox4 and takes herself to the restroom. FSBG this am was 127. No other changes noted.
[2022-03-31 07:05] LABS: Basophils % 0.5 % (0.1-2.0); Eosinophils % 0.6 % (0.1-12.0); Hematocrit 35.9 % (37.0-47.0); Hemoglobin 11.4 g/dL (12.2-16.2); Lymphocytes # 1.5 K/mm3 (0.7-4.5); Lymphocytes % 25.4 % (10-50); Mean Corpuscular HGB Conc 31.9 g/dL (31.8-35.4); Mean Corpuscular Hemoglobin 26.8 pg (27.0-31.2); Mean Corpuscular Volume 84.2 fl (81-99); Mean Platelet Volume 8.5 fl (7.4-10.4); Monocytes # 0.4 K/mm3 (0.1-1.0); Monocytes % 7.3 % (1.7-9.3); Neutrophils % 66.2 % (37.0-80.0); Platelet Count 239 K/mm3 (142-424); Red Blood Count 4.27 M/mm3 (4.20-5.40); White Blood Count 6.1 K/mm3 (4.8-10.8)
[2022-03-31 07:12] LABS: Chloride 114 mmol/L (98-107); Sodium 143 mmol/L (136-145)
[2022-03-31 07:13] LABS: Potassium 3.8 mmoL/L (3.5-5.1)
[2022-03-31 07:15] LABS: Alanine Aminotransferase 17 U/L (12-78); Albumin Level 3.3 g/dl (3.5-5.0); Albumin/Globulin Ratio 0.9 (1.1-1.8); Alkaline Phosphatase 87 U/L (38-126); Anion Gap 8.8 mEq/L (5-15); Aspartate Amino Transferase 23 U/L (14-36); Bilirubin,Total 0.3 mg/dl (0.2-1.3); Blood Urea Nitrogen 14 mg/dl (7-17); Carbon Dioxide 24 mmol/L (22.0-30.0); Creatinine Clearance Estimated 41 mL/min (50-200); Estimated Glomerular Filt Rate 52 ml/min (>60); GFR (African American) 63 ML/MIN (>60); Globulin 3.6 g/dL (1.3-3.2); Glucose 130 mg/dl (74-100); Total Protein,Serum 6.9 g/dl (6.3-8.2)
[2022-03-31 07:16] LABS: Magnesium 2.3 mg/dl (1.6-2.3)
[2022-03-31 08:00] VITALS: BP 121/41; PULSE 60; RESP 18; TEMP 37.2; O2SAT 97; O2SAT 98
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
--- NOTE | 2022-03-31 16:11 | HMH.PHAINT1 ---
Pharmacy Intervention Comments: Discussed discharge medications with patient. Patient verbalized understanding and had no questions at this time
--- NOTE | 2022-04-01 13:44 | CARE MANAGER ---
Contacted patient related to hospital discharge. Patient states she is going to get her meds in a few minutes. She denies questions or concerns and is aware of follow up appointment. ARSENIO Elizabeth
[2022-04-02 00:04] LABS: Neisseria gonorrhoeae, NAA Negative (Negative)
== END 2022-03-31 16:26 | disposition home or self-care (01) ==
LOC: ER 00:50 → 2ND 02:37
PROVIDERS: Nurse Practitioner Acute Care; Admitting Provider Internal Medicine Adolescent Medicine; Emergency Provider Emergency Medicine; PCP Nurse Practitioner Family; Visit Provider Internal Medicine Adolescent Medicine
DX: N12 Tubulo-interstitial nephritis, not specified as acute or chronic (principal); E11.9 Type 2 diabetes mellitus without complications; I10 Essential (primary) hypertension; E78.5 Hyperlipidemia, unspecified; F17.210 Nicotine dependence, cigarettes, uncomplicated; Z79.899 Other long term (current) drug therapy; E66.01 Morbid (severe) obesity due to excess calories; Z68.41 Body mass index [BMI] 40.0-44.9, adult; Z20.822 Contact with and (suspected) exposure to COVID-19
CPT/HCPCS: G0378; 36415; 80048; 80053; 81001; 82150; 82962; 83605; 83690; 83735; 84484; 85025; 87040; 87077; 87186; 87210; 87491; 87591; 93005; 99285; C9803; J0696; J1956; Q9967; U0003; U0005

== ENCOUNTER 2022-11-21 02:04 | Emergency (ER) | payer MEDICARE, MEDICAID, SELFPAY ==
[2022-11-21 02:04] VITALS: BP 140/77; PULSE 92; RESP 17; TEMP 36.6; O2SAT 95; BMI 37.0
--- NOTE | 2022-11-21 02:08 | PC.NURSE ---
Pt c/o right knee pain r/t fall 24 hrs ago LE peripheral pulses palpable and equal bilaterally
--- NOTE | 2022-11-21 02:23 | XR_ITS ---
PROCEDURE INFORMATION: Exam: XR Right Knee Exam date and time: 11/21/2022 3:22 AM Age: 52 years old Clinical indication: Pain; Knee; Right; Additional info: [place] pop, medial knee pain TECHNIQUE: Imaging protocol: Radiologic exam of the right knee. Views: 3 views. COMPARISON: CR XR KNEE RT 4V 02/15/2020 8:39 AM FINDINGS: Bones/joints: There is narrowing of the medial compartment. Multiple marginal osteophytes are present. Findings consistent with osteo arthritic degenerative changes. Soft tissues: Normal. IMPRESSION: There is narrowing of the medial compartment. Multiple marginal osteophytes are present. Findings consistent with osteo arthritic degenerative changes.
[2022-11-21 02:31] VITALS: BP 132/71; PULSE 89; O2SAT 92
--- NOTE | 2022-11-21 02:56 | PC.NURSE ---
Reassessed pt pain level after PO, IV, and transdermal patch, pt now reports pain 6/10 trending downward, no acute distress noted/reported at this time.
[2022-11-21 03:00] VITALS: BP 132/84; PULSE 91; O2SAT 97
--- NOTE | 2022-11-21 03:00 | HMH.EDGENADL ---
Discharge Plan Disposition Patient Disposition: Home, Self-Care Prescriptions Prescriptions: No Action oxybutynin chloride 10 mg tablet extended release 24hr 10 mg PO DAILY metoprolol tartrate 25 mg tablet 25 mg PO BID metronidazole 500 mg Tablet 500 mg PO BID 6 Days Qty: 12 0RF gabapentin 100 mg Capsule 100 mg PO TID Qty: 0 0RF levofloxacin 750 mg tablet 750 mg PO Q48H 8 Days Qty: 4 0RF Rx Instructions: first dose 04/02/22 pravastatin 40 MG tablet 40 mg PO DAILY omeprazole 40 MG capsule,delayed release(DR/EC) 40 mg PO DAILY diltiazem HCl 180 MG capsule,extended release 24hr 180 mg PO DAILY sertraline 100 MG tablet 100 mg PO BID loratadine 10 MG tablet 10 mg PO DAILY Referrals Follow up/Referrals: Peggy Ricks APRN [Primary Care Provider] - See instructions Activity Restrictions/Add. Instructions Additional Instructions/Restrictions: Please follow-up with your PCP or with your orthopedist for further evaluation. You will need an MRI of the knee. Please take Tylenol and ibuprofen as needed for pain. Clinical Impressions Clinical Impression: Acute knee pain Qualifiers: Laterality: right Qualified Code(s): M25.561 - Pain in right knee Discharge ED Provider: James Salcedo General Adult HPI General Chief complaint: Extremity Injury, Lower Stated complaint: right knee pain Time Seen by Provider: 11/21/22 02:10 Mode of Arrival: EMS Source of Information: Patient and EMS Limitations: No Limitations Description of Symptoms (Recalled from ER Triage Doc. by RN): Patient reports that she just tried to move her knee the evening of 11/19 and heard a very loud pop sound with some pain. Patient reports that the pain was tolerable and she was able to continue about her day, but throughout the evening it progressively became worse. At this time patient reports pain 8/10 with movement making the pain worse. Patient denies trauma. Patient did not take any OTC medications to attempt to treat the pain. Patient reports difficulty bearing weight. History of Present Illness HPI narrative: 52-year-old female, history as reported below, presents with right knee pain. She reports that she was sitting earlier tonight, she made to get up and felt a pop in the medial aspect of her right knee. She was initially able to walk afterwards but pain became progressively worse. She reports that she is now unable to ambulate secondary to pain. Denies any numbness or tingling. Denies weakness. Related Data Home Medications Medication Instructions Recorded Confirmed diltiazem HCl 180 mg 180 mg PO DAILY HEART RATE 06/17/18 03/30/22 capsule,extended release 24 hr loratadine 10 mg tablet 10 mg PO DAILY Allergy symptoms 06/17/18 03/30/22 omeprazole 40 mg capsule,delayed 40 mg PO DAILY GERD 06/17/18 03/30/22 release pravastatin 40 mg tablet 40 mg PO DAILY Cholesterol 06/17/18 03/30/22 sertraline 100 mg tablet 100 mg PO BID Depression 06/17/18 03/30/22 metoprolol tartrate 25 mg tablet 25 mg PO BID Hypertension 03/30/22 03/30/22 oxybutynin chloride 10 mg 10 mg PO DAILY BLADDER 03/30/22 03/30/22 tablet,extended release 24 hr Previous Rx's Medication Instructions Recorded gabapentin 100 mg capsule 100 mg PO TID #0 caps 03/31/22 levofloxacin 750 mg tablet 750 mg PO Q48H 8 days #4 tabs 03/31/22 metronidazole 500 mg tablet 500 mg PO BID 6 days #12 tabs 03/31/22 Allergies Allergy/AdvReac Type Severity Reaction Status Date / Time codeine [CODEINE] Allergy Unknown Verified 05/22/20 09:56 Sulfa (Sulfonamide Allergy Unknown Verified 05/22/20 09:56 Antibiotics) [SULFA (SULFONAMIDE ANTIBIOTICS)] [facility] Disclaimer: The information contained in this section may have been updated after the patient was seen, as this information can be updated by other users. Medical History (Updated 11/21/22 @ 05:00 by James Salcedo MD) COPD (chronic obstruc
[2022-11-21 03:31] VITALS: BP 125/61; PULSE 74; O2SAT 95
[2022-11-21 04:01] VITALS: BP 129/54; PULSE 67; O2SAT 93
--- NOTE | 2022-11-21 04:10 | PC.NURSE ---
Sit visit with patient. Reports pain level 3/10, denies needs at this time, no acute distress noted/reported,
[2022-11-21 05:12] VITALS: BP 126/82; PULSE 87; RESP 16; TEMP 36.7
== END 2022-11-21 05:15 | disposition home or self-care (01) ==
PROVIDERS: Emergency Provider Emergency Medicine; PCP Nurse Practitioner Family
DX: M25.561 Pain in right knee (principal); F17.210 Nicotine dependence, cigarettes, uncomplicated; J44.9 Chronic obstructive pulmonary disease, unspecified; E11.9 Type 2 diabetes mellitus without complications; E78.5 Hyperlipidemia, unspecified; I10 Essential (primary) hypertension; G40.909 Epilepsy, unspecified, not intractable, without status epilepticus; F32.A Depression, unspecified
CPT/HCPCS: 73562; 96374; 99284

== ENCOUNTER 2023-04-19 21:25 | Emergency (ER) | payer MEDICARE, MEDICAID, SELFPAY ==
--- NOTE | 2023-04-19 21:19 | ECG_ITS ---
APPROVED REPORT Exam: Resting ECG HR:72 bpm ECG Measurements Heart Rate 72 AXES TX 165 P 26 QRSd 86 QRS 21 QT 420 T 62 QTc 445 Conclusion SINUS RHYTHM LOW QRS VOLTAGE IN PRECORDIAL LEADS [QRS DEFLECTION < 1.0 mV IN CHEST LEADS] POSSIBLE RIGHT VENTRICULAR CONDUCTION DELAY [RSR (QR) IN V1/V2] MINIMAL ST DEPRESSION [0.025+ mV ST DEPRESSION] BORDERLINE ECG UNCONFIRMED REPORT Electronically signed by : Serg Rothman, 04/19/2023 23:14:20
[2023-04-19 21:29] VITALS: BP 166/96; PULSE 86; RESP 16; TEMP 36.9; O2SAT 98; BMI 38.7
--- NOTE | 2023-04-19 21:32 | XR_ITS ---
PROCEDURE INFORMATION: Exam: XR Chest Exam date and time: 04/19/2023 9:49 PM Age: 52 years old Clinical indication: Dyspnea TECHNIQUE: Imaging protocol: Radiologic exam of the chest. Views: 1 view. COMPARISON: CR XR CHEST 2V 03/30/2022 1:28 AM FINDINGS: Lungs: No evidence of acute pulmonary disease or infiltrates Pleural spaces: No large effusion or pneumothorax. Heart/Mediastinum: No evidence of mediastinal widening or cardiac silhouette enlargement; the mediastinum and heart appear within normal limits for contour and size. Bones/joints: No evidence of acute osseous abnormalities within the visualized portions of the thoracic spine and ribs. Osseous structures appear appropriate for patient age. IMPRESSION: No dense parenchymal consolidation, pleural effusion, or pneumothorax.
--- NOTE | 2023-04-19 21:33 | [facility].EDCP ---
Discharge Plan Disposition Patient Disposition: Home, Self-Care Condition: Good Prescriptions Prescriptions: No Action oxybutynin chloride 10 mg tablet extended release 24hr 10 mg PO DAILY metoprolol tartrate 25 mg tablet 25 mg PO BID metronidazole 500 mg Tablet 500 mg PO BID 6 Days Qty: 12 0RF gabapentin 100 mg Capsule 100 mg PO TID Qty: 0 0RF levofloxacin 750 mg tablet 750 mg PO Q48H 8 Days Qty: 4 0RF Rx Instructions: first dose 04/02/22 pravastatin 40 MG tablet 40 mg PO DAILY omeprazole 40 MG capsule,delayed release(DR/EC) 40 mg PO DAILY diltiazem HCl 180 MG capsule,extended release 24hr 180 mg PO DAILY sertraline 100 MG tablet 100 mg PO BID loratadine 10 MG tablet 10 mg PO DAILY Referrals Follow up/Referrals: Elias Garcia MD [Staff Physician] - See instructions Activity Restrictions/Add. Instructions Additional Instructions/Restrictions: You were evaluated in the emergency department today. Please follow-up closely with your primary care provider and registered nurse teacher. Return to the emergency department for new or worsening symptoms. Clinical Impressions Clinical Impression: Chest pain Instructions Patient Instructions: DI for Atypical Chest Pain Discharge ED Provider: Dora Jaramillo HPI <J Ramon Rothman MD - Last Filed: 04/19/23 21:41> General Chief Complaint: Chest Pain Stated Complaint: chest pain Time Seen by Provider: 04/19/23 21:30 History of Present Illness HPI narrative: Patient is a 52-year-old with history of hypertension diabetes hyperlipidemia presents today with chest pain. She also states she has been having seizures. Regarding her seizure she states has been having a seizure which she describes as generalized tonic-clonic every other day for the last 20 years but states she has not been on any antiepileptic medications for over 15 years and she is just on the limit this. She has been following up with her primary care doctor regarding this. She states this is nothing different than her baseline she is here primarily for her chest pain. Chest pain started at 730 substernal she states it felt like somebody stabbing her in the chest nonexertional no diaphoresis or radiation associated with this she has no dyspnea. No history of any blood clots no lower extremity swelling no hemoptysis etc. Related Data Home Medications Medication Instructions Recorded Confirmed diltiazem HCl 180 mg 180 mg PO DAILY HEART RATE 06/17/18 03/30/22 capsule,extended release 24 hr loratadine 10 mg tablet 10 mg PO DAILY Allergy symptoms 06/17/18 03/30/22 omeprazole 40 mg capsule,delayed 40 mg PO DAILY GERD 06/17/18 03/30/22 release pravastatin 40 mg tablet 40 mg PO DAILY Cholesterol 06/17/18 03/30/22 sertraline 100 mg tablet 100 mg PO BID Depression 06/17/18 03/30/22 metoprolol tartrate 25 mg tablet 25 mg PO BID Hypertension 03/30/22 03/30/22 oxybutynin chloride 10 mg 10 mg PO DAILY BLADDER 03/30/22 03/30/22 tablet,extended release 24 hr Previous Rx's Medication Instructions Recorded gabapentin 100 mg capsule 100 mg PO TID #0 caps 03/31/22 levofloxacin 750 mg tablet 750 mg PO Q48H 8 days #4 tabs 03/31/22 metronidazole 500 mg tablet 500 mg PO BID 6 days #12 tabs 03/31/22 Allergies Allergy/AdvReac Type Severity Reaction Status Date / Time codeine [CODEINE] Allergy Unknown Verified 05/22/20 09:56 Sulfa (Sulfonamide Allergy Unknown Verified 05/22/20 09:56 Antibiotics) [SULFA (SULFONAMIDE ANTIBIOTICS)] [facility] <Julienne Rothman MD - Last Filed: 04/19/23 21:41> [facility] Disclaimer: The information contained in this section may have been updated after the patient was seen, as this information can be updated by other users. Medical History (Updated 04/19/23 @ 21:41 by Julienne Rothman MD) Depression Seizures Migraine Diabetes mellitus, type 2 COPD (chronic obstructive pulmonary disease) Hyperlipidemia Hypertension Surgical History History of carpal tunnel surgery History of hysterectomy History of section History of cholecystectomy History of appendectomy Family History (Updated 03/30/22 @ 03:30 by Elena Madera RN) Other No significant family history Social History (Updated 03/30/22 @ 03:27 by Elena Madera RN) Smoking Status: Former smoker tobacco type: cigarettes packs per day: 1 years smoked: 20 second hand exposure: Yes alcohol intake: never substance use type: denies use current occupational status: disabled Travel in the last 8 weeks: None household members: spouse housing: house current occupational exposures/hazards: No caffeine: Yes <Julienne Rothman MD - Last Filed: 04/19/23 21:41> ROS Obtained: Yes All systems reviewed & no additional complaints except as documented Physical Exam <Julienne Rothman MD - Last Filed: 04/19/23 21:41> General General appearance: alert and in no apparent distress Respiratory Respiratory exam: Present normal lung sounds bilaterally; Absent respiratory distress Cardiovascular Cardiovascular exam: Present regular rate and normal rhythm Abdominal Exam Abdominal exam: Present soft; Absent distention or tenderness Neurological Exam Neurological exam: Present alert, oriented X3, CN II-XII intact and normal gait; Absent motor sensory deficit HEART Score <Julienne Rothman MD - Last Filed: 04/19/23 21:41> HEART Score HEART Score assessment performed?: Yes History (anamnesis): Slightly suspicious ECG: Normal Age: 45-65 years Risk factors: 3 or more risk factors Troponin: </= normal limit HEART Score: 3 <Dora Jaramillo DO - Last Filed: 04/20/23 01:33> HEART Score HEART Score: 3 Critical Care <Julienne Rothman MD - Last Filed: 04/19/23 21:41> Critical Care Time Critical Care Time: No Medical Decision Making <Julienne Rothman MD - Last Filed: 04/19/23 21:41> Juan C Inquiry Pt receiving controlled substance: No Vital Signs Vital Signs: 04/19/23 21:29 04/19/23 22:00 04/19/23 22:30 Temperature 98.5 F Temperature Source Oral Pulse Rate 76 75 Pulse Rate [Right Brachial] 86 Respiratory Rate 16 23 20 Blood Pressure 151/76 H 144/89 H Blood Pressure [Right Arm] 166/96 H Blood Pressure Mean 101 107 Blood Pressure Mean [Right Arm] 119 02 Sat by Pulse Oximetry 98 95 95 Oxygen Delivery Method Room Air Room Air 04/19/23 23:00 04/19/23 23:30 04/20/23 00:00 Temperature Temperature Source Pulse Rate 69 Pulse Rate [Right Brachial] Respiratory Rate 20 16 15 Blood Pressure 149/78 H 148/80 H 153/86 H Blood Pressure [Right Arm] Blood Pressure Mean 97 99 99 Blood Pressure Mean [Right Arm] 02 Sat by Pulse Oximetry 95 95 96 Oxygen Delivery Method Room Air Room Air Room Air 04/20/23 00:30 Temperature Temperature Source Pulse Rate 65 Pulse Rate [Right Brachial] Respiratory Rate 22 Blood Pressure 146/88 H Blood Pressure [Right Arm] Blood Pressure Mean 101 Blood Pressure Mean [Right Arm] 02 Sat by Pulse Oximetry 96 Oxygen Delivery Method Room Air Lab Data Labs: Lab Results 04/19/23 19:57: WBC 11.5 H, RBC 4.99, Hgb 15.0, Hct 46.0, MCV 92.3, MCH 30.0, MCHC 32.5, RDW 14.5, Plt Count 322, MPV 8.7, Neut % (Auto) 54.0, Lymph % (Auto) 39.3, [place] % (Auto) 4.3, Eos % (Auto) 1.0, Baso % (Auto) 1.5, Neut # (Auto) 6.2, Lymph # (Auto) 4.5, [place] # (Auto) 0.5, Eos # (Auto) 0.1, Baso # (Auto) 0.2, D-Dimer 0.40, Sodium 142, Potassium 4.3, Chloride 106, Carbon Dioxide 29, Anion Gap 11.3, BUN 12, Creatinine 0.80, Estimated Creat Clear 140, Estimated GFR 75, Est GFR ( Amer) 91, Glucose 140 H, Calcium 9.3, Total Bilirubin 0.5, AST 31, ALT 23, Alkaline Phosphatase 142 H, Troponin I < 0.01, Total Protein 7.7, Albumin 4.3, Globulin 3.4 H, Albumin/Globulin Ratio 1.3 04/20/23 00:37: Troponin I < 0.01 04/19/23 19:57 04/19/23 19:57 Response Orders (Tests/Meds): ORDERS Category Date Time Status CXR --portable [XR chest portable] Stat Exams 04/19/23 21:32 Completed CBC w/Auto Diff [Complete Blood Count Auto Diff] Stat Lab 04/19/23 19:57 Completed CMP [Comprehensive Metabolic Panel] Stat Lab 04/19/23 19:57 Completed D-Dimer Stat Lab 04/19/23 19:57 Completed Trop I [Troponin I] Stat Lab 04/19/23 19:57 Completed Troponin I Q3H Lab 04/20/23 00:37 Completed Troponin I Q3H Lab 04/20/23 03:45 Ordered ECG Data Tracing #1: Attestation: I reviewed this ECG and interpreted as documented below: ECG Narrative: Ventricular rate of 72 sinus rhythm no acute ischemic changes noted there is normal axis no significant conduction abnormalities MDM Narrative Medical Decision Narrative: Very well-appearing 52-year-old female presenting today with what she describes as a possible seizure. This was witnessed by EMS and they described it more as tremor more so than seizure-like activity. She claims that she has had these every other day for the last 20 years and has not been on any antilipid medications for 15 years. I would not work this up further she certainly not postictal and this is nothing different than what ever she has been experiencing in the past no evidence of any definitive seizures. I have advised that she follow-up outpatient with neurology regarding this. Regarding her chest pain her EKG is nonischemic cannot use PERC criteria will obtain a D-dimer with a cutoff of 1.[address] PE. Will obtain serial troponins given the fact that her symptoms are within 2 hours in order to rule out acute coronary syndrome which I think is very unlikely. In ED observation order has been placed at 9:40 PM pending her serial troponins. Chest x-ray will also be performed. Care will be transitioned to Dr. Dora Jaramillo at 11 PM for final disposition. <Dora Jaramillo, DO - Last Filed: 04/20/23 01:33> Vital Signs Vital Signs: 04/19/23 21:29 04/19/23 22:00 04/19/23 22:30 Temperature 98.5 F Temperature Source Oral Pulse Rate 76 75 Pulse Rate [Right Brachial] 86 Respiratory Rate 16 23 20 Blood Pressure 151/76 H 144/89 H Blood Pressure [Right Arm] 166/96 H Blood Pressure Mean 101 107 Blood Pressure Mean [Right Arm] 119 02 Sat by Pulse Oximetry 98 95 95 Oxygen Delivery Method Room Air Room Air 04/19/23 23:00 04/19/23 23:30 04/20/23 00:00 Temperature Temperature Source Pulse Rate 69 Pulse Rate [Right Brachial] Respiratory Rate 20 16 15 Blood Pressure 149/78 H 148/80 H 153/86 H Blood Pressure [Right Arm] Blood Pressure Mean 97 99 99 Blood Pressure Mean [Right Arm] 02 Sat by Pulse Oximetry 95 95 96 Oxygen Delivery Method Room Air Room Air Room Air 04/20/23 00:30 Temperature Temperature Source Pulse Rate 65 Pulse Rate [Right Brachial] Respiratory Rate 22 Blood Pressure 146/88 H Blood Pressure [Right Arm] Blood Pressure Mean 101 Blood Pressure Mean [Right Arm] 02 Sat by Pulse Oximetry 96 Oxygen Delivery Method Room Air Lab Data Labs: Lab Results 04/19/23 19:57: WBC 11.5 H, RBC 4.99, Hgb 15.0, Hct 46.0, MCV 92.3, MCH 30.0, MCHC 32.5, RDW 14.5, Plt Count 322, MPV 8.7, Neut % (Auto) 54.0, Lymph % (Auto) 39.3, [place] % (Auto) 4.3, Eos % (Auto) 1.0, Baso % (Auto) 1.5, Neut # (Auto) 6.2, Lymph # (Auto) 4.5, [place] # (Auto) 0.5, Eos # (Auto) 0.1, Baso # (Auto) 0.2, D-Dimer 0.40, Sodium 142, Potassium 4.3, Chloride 106, Carbon Dioxide 29, Anion Gap 11.3, BUN 12, Creatinine 0.80, Estimated Creat Clear 140, Estimated GFR 75, Est GFR ( Amer) 91, Glucose 140 H, Calcium 9.3, Total Bilirubin 0.5, AST 31, ALT 23, Alkaline Phosphatase 142 H, Troponin I < 0.01, Total Protein 7.7, Albumin 4.3, Globulin 3.4 H, Albumin/Globulin Ratio 1.3 04/20/23 00:37: Troponin I < 0.01 Response Orders (Tests/Meds): ORDERS Category Date Time Status CXR --portable [XR chest portable] Stat Exams 04/19/23 21:32 Completed CBC w/Auto Diff [Complete Blood Count Auto Diff] Stat Lab 04/19/23 19:57 Completed CMP [Comprehensive Metabolic Panel] Stat Lab 04/19/23 19:57 Completed D-Dimer Stat Lab 04/19/23 19:57 Completed Trop I [Troponin I] Stat Lab 04/19/23 19:57 Completed Troponin I Q3H Lab 04/20/23 00:37 Completed Troponin I Q3H Lab 04/20/23 03:45 Ordered MDM Narrative Medical Decision Narrative: Very well-appearing 52-year-old female presenting today with what she describes as a possible seizure. This was witnessed by EMS and they described it more as tremor more so than seizure-like activity. She claims that she has had these every other day for the last 20 years and has not been on any antilipid medications for 15 years. I would not work this up further she certainly not postictal and this is nothing different than what ever she has been experiencing in the past no evidence of any definitive seizures. I have advised that she follow-up outpatient with neurology regarding this. Regarding her chest pain her EKG is nonischemic cannot use PERC criteria will obtain a D-dimer with a cutoff of 1.[address] PE. Will obtain serial troponins given the fact that her symptoms are within 2 hours in order to rule out acute coronary syndrome which I think is very unlikely. In ED observation order has been placed at 9:40 PM pending her serial troponins. Chest x-ray will also be performed. Care will be transitioned to Dr. Dora Jaramillo at 11 PM for final disposition. Clint DO: On my assessment of the patient, she is resting comfortably and denies any concerns or complaints. Vitals are reassuring on cardiac telemetry. Second troponin result came back negative.given this as well as symptomatic improvement, I feel the patient is appropriate for discharge. ED observation time ended at 0130 after 3 hr 50 min. I had a [id number] visit with the patient when providing discharge instructions. The total time involved in discharging this patient was less than 30 minutes. Patient was given instructions for close follow-up with her primary care provider, strict return precautions, and she was discharged in stable condition after all questions were answered.
[2023-04-19 21:45] LABS: Basophils # 0.2 K/mm3 (0-0.2); Basophils % 1.5 % (0.1-2.0); Eosinophils # 0.1 K/mm3 (0.0-0.4); Lymphocytes # 4.5 K/mm3 (0.7-4.5); Lymphocytes % 39.3 % (10-50); Mean Corpuscular HGB Conc 32.5 g/dL (31.8-35.4); Mean Corpuscular Volume 92.3 fl (81-99); Mean Platelet Volume 8.7 fl (7.4-10.4); Monocytes # 0.5 K/mm3 (0.1-1.0); Monocytes % 4.3 % (1.7-9.3); Neutrophils # 6.2 K/mm3 (1.8-7.8); Platelet Count 322 K/mm3 (142-424); Red Blood Count 4.99 M/mm3 (4.20-5.40); Red Cell Distribution Width 14.5 % (11.5-17.5); White Blood Count 11.5 K/mm3 (4.8-10.8)
[2023-04-19 21:53] LABS: Chloride 106 mmol/L (98-107); Potassium 4.3 mmoL/L (3.5-5.1); Sodium 142 mmol/L (136-145)
[2023-04-19 21:55] LABS: Blood Urea Nitrogen 12 mg/dl (7-17); Creatinine Clearance Estimated 140 mL/min (50-200); Estimated Glomerular Filt Rate 75 ml/min (>60); GFR (African American) 91 ML/MIN (>60)
[2023-04-19 21:56] LABS: Alanine Aminotransferase 23 U/L (12-78); Albumin Level 4.3 g/dl (3.5-5.0); Albumin/Globulin Ratio 1.3 (1.1-1.8); Alkaline Phosphatase 142 U/L (38-126); Anion Gap 11.3 mEq/L (5-15); Aspartate Amino Transferase 31 U/L (14-36); Bilirubin,Total 0.5 mg/dl (0.2-1.3); Calcium 9.3 mg/dl (8.4-10.2); Carbon Dioxide 29 mmol/L (22.0-30.0); Globulin 3.4 g/dL (1.3-3.2); Glucose 140 mg/dl (74-100); Total Protein,Serum 7.7 g/dl (6.3-8.2)
[2023-04-19 22:00] VITALS: BP 151/76; PULSE 76; RESP 23; O2SAT 95
[2023-04-19 22:08] LABS: Troponin I < 0.01 ng/ml (0.00-0.034)
[2023-04-19 22:30] VITALS: BP 144/89; PULSE 75; RESP 20; O2SAT 95
[2023-04-19 23:00] VITALS: BP 149/78; RESP 20; O2SAT 95
[2023-04-19 23:30] VITALS: BP 148/80; RESP 16; O2SAT 95
--- NOTE | 2023-04-19 23:55 | PC.NURSE ---
rounded on patient, no needs at this time, call light within reach
[2023-04-20] VITALS: BP 153/86; PULSE 69; RESP 15; O2SAT 96
[2023-04-20 00:30] VITALS: BP 146/88; PULSE 65; RESP 22; O2SAT 96
--- NOTE | 2023-04-20 00:45 | PC.NURSE ---
rounded on patient, states she doesn't need anything at this time
[2023-04-20 01:15] LABS: Troponin I < 0.01 ng/ml (0.00-0.034)
[2023-04-20 01:32] VITALS: BP 146/83; PULSE 77; RESP 18; TEMP 36.8; O2SAT 96
== END 2023-04-20 01:45 | disposition home or self-care (01) ==
PROVIDERS: Student in an Organized Health Care Education/Training Program; Emergency Provider Emergency Medicine
DX: R07.9 Chest pain, unspecified (principal); R56.9 Unspecified convulsions; I10 Essential (primary) hypertension; E11.9 Type 2 diabetes mellitus without complications; E78.5 Hyperlipidemia, unspecified; J44.9 Chronic obstructive pulmonary disease, unspecified; Z87.891 Personal history of nicotine dependence
CPT/HCPCS: 71045; 80053; 84484; 85025; 85378; 93005; 99285

== ENCOUNTER 2023-06-17 13:31 | Emergency (ER) | payer MEDICARE, MEDICAID, SELFPAY ==
[2023-06-17 14:00] VITALS: BP 161/84; PULSE 88; RESP 18; TEMP 36.9; O2SAT 99; BMI 43.0
[2023-06-17 14:15] LABS: Apearance,Urine Clear (Clear); Blood, Urine Negative (Negative); Color,Urine Dark Yellow (Yellow); Glucose,Urine (UA) Negative (Negative); Ketones,Urine Negative (Negative); Protein,Urine Trace (Negative); Specific Gravity, Urine 1.025 (1.005-1.030)
[2023-06-17 14:16] LABS: Bilirubin,Urine 1+ (Negative); UTC Leukocyte Esterase,Urine Negative (Negative); UTC Nitrate,Urine Negative (Negative); Urobilinogen,Urine 4 EU/dl (0.2)
--- NOTE | 2023-06-17 14:17 | EXP.UTC ---
Discharge Plan Disposition Patient Disposition: Home, Self-Care Condition: Good Prescriptions Prescriptions: New ondansetron 4 mg tablet,disintegrating 4 mg PO Q8H PRN (Reason: nausea and vomiting) Qty: 10 0RF No Action oxybutynin chloride 10 mg tablet extended release 24hr 10 mg PO DAILY metoprolol tartrate 25 mg tablet 25 mg PO BID metronidazole 500 mg Tablet 500 mg PO BID 6 Days Qty: 12 0RF gabapentin 100 mg Capsule 100 mg PO TID Qty: 0 0RF levofloxacin 750 mg tablet 750 mg PO Q48H 8 Days Qty: 4 0RF Rx Instructions: first dose 04/02/22 pravastatin 40 MG tablet 40 mg PO DAILY omeprazole 40 MG capsule,delayed release(DR/EC) 40 mg PO DAILY diltiazem HCl 180 MG capsule,extended release 24hr 180 mg PO DAILY sertraline 100 MG tablet 100 mg PO BID loratadine 10 MG tablet 10 mg PO DAILY Referrals Follow up/Referrals: Vandana Rivera APRN [Primary Care Provider] - See instructions Activity Restrictions/Add. Instructions Additional Instructions/Restrictions: Over the counter solorcaine may help with sunburn on abdomen Make sure to apply lotion to the area Over the counter Motrin may help with sunburn pain Make sure to drink plenty of fluids to keep hydrated Follow up with your Family Doctor to recheck your urine Clinical Impressions Clinical Impression: Urinary tract infection symptoms Instructions Patient Instructions: DI for Nausea -- Adult Discharge ED Provider: Sandra Ford [facility] General Stated complaint: blood in urine, sick to stomach Mode of Arrival: Ambulatory Source of Information: Patient Limitations: No Limitations Time Seen by Provider: 06/17/23 14:17 Description of Symptoms (Recalled from Triage Doc. by RN): PATIENT C/O BLOOD IN URINE, BURNING WITH URINATION, LEFT SIDE PAIN AND NAUSEA X 2 DAYS HEENT Symptoms (Recalled from RN notes): No Resp Symptoms (Recalled from RN notes): No Skin Symptoms (Recalled from RN notes): No MS Symptoms (Recalled from RN notes): No Functional Status (Recalled from RN notes): WNL History of Present Illness Provider Complaint: Patient states yesterday she thought she may have had a stomach bug she was vomiting alot States that she also laid in the tanning bed and got sunburned on Thursday and sore from that, States today she thinks she seen blood in her urine it looked dark in color, States that she is still having an achy like nausea feeling but not vomiting today Related Data Home Medications Medication Instructions Recorded Confirmed diltiazem HCl 180 mg 180 mg PO DAILY HEART RATE 06/17/18 03/30/22 capsule,extended release 24 hr loratadine 10 mg tablet 10 mg PO DAILY Allergy symptoms 06/17/18 03/30/22 omeprazole 40 mg capsule,delayed 40 mg PO DAILY GERD 06/17/18 03/30/22 release pravastatin 40 mg tablet 40 mg PO DAILY Cholesterol 06/17/18 03/30/22 sertraline 100 mg tablet 100 mg PO BID Depression 06/17/18 03/30/22 metoprolol tartrate 25 mg tablet 25 mg PO BID Hypertension 03/30/22 03/30/22 oxybutynin chloride 10 mg 10 mg PO DAILY BLADDER 03/30/22 03/30/22 tablet,extended release 24 hr Previous Rx's Medication Instructions Recorded gabapentin 100 mg capsule 100 mg PO TID #0 caps 03/31/22 levofloxacin 750 mg tablet 750 mg PO Q48H 8 days #4 tabs 03/31/22 metronidazole 500 mg tablet 500 mg PO BID 6 days #12 tabs 03/31/22 ondansetron 4 mg disintegrating 4 mg PO Q8H PRN nausea and 06/17/23 tablet vomiting #10 tabs Allergies Allergy/AdvReac Type Severity Reaction Status Date / Time codeine [CODEINE] Allergy Unknown Verified 05/22/20 09:56 Sulfa (Sulfonamide Allergy Unknown Verified 05/22/20 09:56 Antibiotics) [SULFA (SULFONAMIDE ANTIBIOTICS)] Worker's Comp Is this a Worker's Comp case?: No [facility] Disclaimer: The information contained in this section may have been updated after the patient was seen, as this information can be updated by other users. Medical History (Updated 06/17/23 @ 14:28 by Sandra Ford APRN) Depression Seizures Migraine Diabetes mellitus, type 2 COPD (chronic obstructive pulmonary disease) Hyperlipidemia Hypertension Surgical History History of carpal tunnel surgery History of hysterectomy History of section History of cholecystectomy History of appendectomy Family History (Updated 03/30/22 @ 03:30 by Elena Madera RN) Other No significant family history Social History (Updated 03/30/22 @ 03:27 by Elena Madera RN) Smoking Status: Former smoker tobacco type: cigarettes packs per day: 1 years smoked: 20 second hand exposure: Yes alcohol intake: never substance use type: denies use current occupational status: disabled Travel in the last 8 weeks: None household members: spouse housing: house current occupational exposures/hazards: No caffeine: Yes ROS Obtained: Yes All systems reviewed & no additional complaints except as documented and Yes Systems reviewed as appropriate & no additional complaints except as documented Constitutional Constitutional: Reports system reviewed and no additional complaints, except as documented and Reports as per HPI ENT Ears, Nose, Mouth, and Throat: Reports system reviewed and no additional complaints, except as documented and Reports as per HPI Cardiovascular Cardiovascular: Reports system reviewed and no additional complaints, except as documented and Reports as per HPI Respiratory Respiratory: Reports system reviewed and no additional complaints, except as documented and Reports as per HPI Gastrointestinal Gastrointestingal: Reports system reviewed and no additional complaints, except as documented, as per HPI, cramping (cramping like feeling on left side), nausea and vomiting (yesterday none today) Genitourinary Female Genitourinary: Reports system reviewed and no additional complaints, except as documented, Reports as per HPI, Reports hematuria and Reports other Comments: reports wasnt having burning but had a little when she urinated to collect the specimen for testing Musculoskeletal Musculoskeletal: Reports back pain Comments: reports achy like crampy feeling on her left side Physical Exam General General appearance: alert and in no apparent distress ENT ENT exam: Present mucous membranes moist Respiratory Respiratory exam: Present normal lung sounds bilaterally; Absent respiratory distress or wheezes Cardiovascular Cardiovascular exam: Present regular rate, normal rhythm and normal heart sounds Abdominal Exam Abdominal exam: Present soft and normal bowel sounds; Absent distention or tenderness Back Exam Back exam: Present other Back 1 view image: 1. reports mild achy like feeling worse with movement Neurological Exam Neurological exam: Present alert, oriented X3 and normal gait Medical Decision Making Juan C Inquiry Pt receiving controlled substance: No Juan C was queried for this patient: No Vital Signs: 06/17/23 14:00 Temperature 98.4 F Temperature Source Oral Pulse Rate [Left Brachial] 88 Respiratory Rate 18 Blood Pressure [Left Arm] 161/84 H Blood Pressure Mean [Left Arm] 109 Blood Pressure Source [Left Arm] Automatic Cuff Blood Pressure Position [Left Arm] Sitting 02 Sat by Pulse Oximetry 99 Oxygen Delivery Method Room Air Lab Data Lab results reviewed: Yes I reviewed the patient's lab results. Lab Results 06/17/23 14:14: Urine Color Dark yellow, Urine Appearance Clear, Urine pH 6.0, Ur Specific [place] 1.025, Urine Protein Trace, Urine Glucose (UA) Negative, Urine Ketones Negative, Urine Blood Negative, Urine Nitrate Negative, Urine Bilirubin 1+ A, Urine Urobilinogen 4, Ur Leukocyte Esterase Negative Medical Decision Narrative: Discussed with patient to follow up in with her PCP due to bilirubin in urine to get it rechecked
[2023-06-17 14:27] VITALS: BP 161/84; PULSE 88; RESP 18; TEMP 36.9; O2SAT 99
== END 2023-06-17 14:40 | disposition home or self-care (01) ==
PROVIDERS: Emergency Provider Nurse Practitioner; PCP Nurse Practitioner
DX: R10.814 Left lower quadrant abdominal tenderness (principal); R30.0 Dysuria; R31.9 Hematuria, unspecified; R11.0 Nausea
CPT/HCPCS: 81003; 99212; 99214; G0463

== ENCOUNTER 2023-08-27 13:34 | Emergency (ER) | payer MEDICARE, MEDICAID, SELFPAY ==
[2023-08-27] VITALS (9 sets, daily range): BP systolic 122–147; BP diastolic 60–78; PULSE 47–66; RESP 16; TEMP 36.6; O2SAT 95–100; BMI 41.0
--- NOTE | 2023-08-27 13:59 | ED_ITS ---
Discharge Plan Disposition Patient Disposition: Home, Self-Care Chief Complaint: Extremity Problem,Nontraumatic Prescriptions Prescriptions: No Action oxybutynin chloride 10 mg tablet extended release 24hr 10 mg PO DAILY metoprolol tartrate 25 mg tablet 25 mg PO BID metronidazole 500 mg Tablet 500 mg PO BID 6 Days Qty: 12 0RF gabapentin 100 mg Capsule 100 mg PO TID Qty: 0 0RF levofloxacin 750 mg tablet 750 mg PO Q48H 8 Days Qty: 4 0RF Rx Instructions: first dose 04/02/22 pravastatin 40 MG tablet 40 mg PO DAILY omeprazole 40 MG capsule,delayed release(DR/EC) 40 mg PO DAILY diltiazem HCl 180 MG capsule,extended release 24hr 180 mg PO DAILY sertraline 100 MG tablet 100 mg PO BID loratadine 10 MG tablet 10 mg PO DAILY ondansetron 4 mg tablet,disintegrating 4 mg PO Q8H PRN (Reason: nausea and vomiting) Qty: 10 0RF Referrals Follow up/Referrals: Vandana Rivera APRN [Primary Care Provider] - See instructions Activity Restrictions/Add. Instructions Additional Instructions/Restrictions: Talk to family doctor about scheduling follow-up to receive an MRI of your lumbar spine prior to talking to a spine surgeon and having referral. You have narrowing at L5-S1 as well as compression of the nerve going down your left leg, likely causing your symptoms today. Call your family doctor to establish care for this visit to the emergency department and schedule follow-up within 48 hours to ensure improvement. If you have any worsening of your condition or any other concerning signs or symptoms, return to the emergency department or your primary care doctor for further evaluation. Clinical Impressions Clinical Impression: Neuropathic pain of left lower extremity Discharge ED Provider: Russ Kraft General Adult HPI <Augusto Fox MD - Last Filed: 08/27/23 16:25> General Chief complaint: Extremity Problem,Nontraumatic Stated complaint: Seizure Time Seen by Provider: 08/27/23 13:59 Mode of Arrival: EMS Source of Information: Patient Limitations: No Limitations Description of Symptoms (Recalled from ER Triage Doc. by RN): Patient reports left leg pain for 4 days. States it hurts to put weight on it. Patient able to lift leg without difficulty. History of Present Illness HPI narrative: The patient presents with severe left leg pain, describing it as a burning sensation and shooting pain from the top of the kneecap down to the ankle. The pain is exacerbated by touch, movement, bending, and walking. The patient reports that the pain began suddenly four days ago and has been constant since then. There is no associated back pain or recent injury. The patient also reports a history of two ankle fractures on the same leg, one 12-14 years ago and another 10 years prior to that. The latter fracture was not diagnosed until an x-ray was performed six to seven years ago. The patient experiences occasional tingling in the affected leg, but the primary sensation is that of burning and shooting pain. The pain is worse when not standing, causing it to shoot down into the ankle. The patient is a smoker. Please note that above description of symptoms, in this electronic medical record under categorization of recalled from ER triage doctor by RN are reflective of an initial nursing assessment, however, is not reflective of my full history and physical exam that was personally taken and clarified. Consequentially, this preceding description of symptoms, which may include the patient's categorized chief complaint in the EMR, do not reflect my personal clinical impression, and the ultimate description of history of present illness and patient stated complaints should be deferred to this section of the note. Unless stated otherwise or congruent with this section of the note, additional signs, symptoms, or incongruence should be interpreted as inaccurate with my clinical impression. Related Data Home Medications Medication Instructions Recorded Confirmed diltiazem HCl 180 mg 180 mg PO DAILY HEART RATE 06/17/18 03/30/22 capsule,extended release 24 hr loratadine 10 mg tablet 10 mg PO DAILY Allergy symptoms 06/17/18 03/30/22 omeprazole 40 mg capsule,delayed 40 mg PO DAILY GERD 06/17/18 03/30/22 release pravastatin 40 mg tablet 40 mg PO DAILY Cholesterol 06/17/18 03/30/22 sertraline 100 mg tablet 100 mg PO BID Depression 06/17/18 03/30/22 metoprolol tartrate 25 mg tablet 25 mg PO BID Hypertension 03/30/22 03/30/22 oxybutynin chloride 10 mg 10 mg PO DAILY BLADDER 03/30/22 03/30/22 tablet,extended release 24 hr Previous Rx's Medication Instructions Recorded gabapentin 100 mg capsule 100 mg PO TID #0 caps 03/31/22 levofloxacin 750 mg tablet 750 mg PO Q48H 8 days #4 tabs 03/31/22 metronidazole 500 mg tablet 500 mg PO BID 6 days #12 tabs 03/31/22 ondansetron 4 mg disintegrating 4 mg PO Q8H PRN nausea and 06/17/23 tablet vomiting #10 tabs Allergies Allergy/AdvReac Type Severity Reaction Status Date / Time codeine [CODEINE] Allergy Unknown Verified 05/22/20 09:56 Sulfa (Sulfonamide Allergy Unknown Verified 05/22/20 09:56 Antibiotics) [SULFA (SULFONAMIDE ANTIBIOTICS)] [facility] <Augusto Fox MD - Last Filed: 08/27/23 16:25> [facility] Disclaimer: The information contained in this section may have been updated after the patient was seen, as this information can be updated by other users. Medical History (Updated 08/27/23 @ 17:59 by Russ Kraft MD) Depression Seizures Migraine Diabetes mellitus, type 2 COPD (chronic obstructive pulmonary disease) Hyperlipidemia Hypertension Surgical History History of carpal tunnel surgery History of hysterectomy History of section History of cholecystectomy History of appendectomy Family History (Updated 03/30/22 @ 03:30 by Elena Madera RN) Other No significant family history Social History (Updated 03/30/22 @ 03:27 by Elena Madera RN) Smoking Status: Unknown if ever smoked years smoked: 20 second hand exposure: Yes alcohol intake: never substance use type: denies use current occupational status: disabled Travel in the last 8 weeks: None household members: spouse housing: house current occupational exposures/hazards: No caffeine: Yes <Augusto Fox MD - Last Filed: 08/27/23 16:25> ROS Obtained: Yes other As per HPI Physical Exam <Augusto Fox MD - Last Filed: 08/27/23 16:25> General General appearance: alert and in no apparent distress Head Head exam: atraumatic and normocephalic Eye Eye exam: Present normal appearance Neck Neck exam: Present normal inspection Chest Chest inspection: Present normal inspection and symmetric chest wall rise Respiratory Respiratory exam: Present normal lung sounds bilaterally; Absent respiratory distress Cardiovascular Cardiovascular exam: Present regular rate and normal rhythm Abdominal Exam Abdominal exam: Present soft Neurological Exam Neurological exam: Present alert and oriented X3 Psychiatric Psychiatric exam: Present normal affect and normal mood Skin Skin exam: Present warm and dry Other Other exam information: Tenderness to palpation throughout left knee, reported tenderness to palpation on anterior aspect of left leg, distal pulses, DP and PT intact, no delayed capillary refill of lower extremity. Positive straight leg raise test. Medical Decision Making <Augusto Fox MD - Last Filed: 08/27/23 16:25> Medical Records Medical records reviewed: Yes I reviewed the patient's medical records. Juan C Inquiry Pt receiving controlled substance: No Vital Signs: 08/27/23 13:35 08/27/23 14:00 08/27/23 14:30 Temperature 97.9 F Temperature Source Oral Pulse Rate 56 L 50 L Pulse Rate [Radial] 66 Respiratory Rate 16 Blood Pressure 130/67 139/77 Blood Pressure [Right Arm] 139/78 Blood Pressure Mean 97 Blood Pressure Mean [Right Arm] 98 Blood Pressure Source [Right Arm] Automatic Cuff Blood Pressure Position [Right Arm] Sitting 02 Sat by Pulse Oximetry 98 96 95 Oxygen Delivery Method Room Air Room Air 08/27/23 15:01 08/27/23 15:30 08/27/23 16:00 Temperature Temperature Source Pulse Rate 49 L 52 L 60 Pulse Rate [Radial] Respiratory Rate Blood Pressure 141/66 H 135/65 122/60 Blood Pressure [Right Arm] Blood Pressure Mean 87 Blood Pressure Mean [Right Arm] Blood Pressure Source [Right Arm] Blood Pressure Position [Right Arm] 02 Sat by Pulse Oximetry 95 97 96 Oxygen Delivery Method Room Air Room Air 08/27/23 16:30 08/27/23 17:00 Temperature Temperature Source Pulse Rate 51 L 59 L Pulse Rate [Radial] Respiratory Rate Blood Pressure 138/63 147/66 H Blood Pressure [Right Arm] Blood Pressure Mean Blood Pressure Mean [Right Arm] Blood Pressure Source [Right Arm] Blood Pressure Position [Right Arm] 02 Sat by Pulse Oximetry 100 100 Oxygen Delivery Method Room Air Room Air Lab Data Lab Results 08/27/23 14:58: WBC 7.7, RBC 4.38, Hgb 12.8, Hct 38.4, MCV 87.7, MCH 29.2, MCHC 33.3, RDW 14.3, Plt Count 270, MPV 8.0, Neut % (Auto) 67.5, Lymph % (Auto) 25.8, [place] % (Auto) 4.4, Eos % (Auto) 1.5, Baso % (Auto) 0.8, Neut # (Auto) 5.2, Lymph # (Auto) 2.0, [place] # (Auto) 0.3, Eos # (Auto) 0.1, Baso # (Auto) 0.1, Sodium 143, Potassium 3.5, Chloride 113 H, Carbon Dioxide 28, Anion Gap 5.5, BUN 11, Creatinine 0.80, Estimated Creat Clear 121, Estimated GFR 75, Est GFR ( Amer) 90, Glucose 117 H, Lactate 1.2, Calcium 8.8, Total Bilirubin 0.3, AST 24, ALT 19, Alkaline Phosphatase 110, Total Creatine Kinase 41, Total Protein 6.9, Albumin 3.6, Globulin 3.3 H, Albumin/Globulin Ratio 1.1 08/27/23 14:58 08/27/23 14:58 Orders (Tests/Meds): ED MEDICATIONS Discontinued Medications Generic Name Dose Route Start Last Admin Trade Name Gladys PRN Reason Stop Dose Admin Iopamidol 120 ml 08/27/23 17:01 08/27/23 17:02 Iopamidol-370 (76%);100ml Bottle IV 08/27/23 17:02 120 ml ONCE ONE Administration Ketorolac Tromethamine 15 mg 08/27/23 14:43 08/27/23 15:03 Ketorolac 30mg/Ml Vial IV 08/27/23 14:44 15 mg ONCE ONE Administration Methocarbamol 500 mg 08/27/23 14:43 08/27/23 15:03 Methocarbamol 500mg Tablet PO 08/27/23 14:44 500 mg ONCE ONE Administration Sodium Chloride 10 ml 08/27/23 17:01 08/27/23 17:02 Sodium Chloride 0.9% 10ml Syr (Rad Only) IV 08/27/23 17:02 10 ml ONCE ONE Administration Sodium Chloride 100 ml 08/27/23 17:01 08/27/23 17:02 0.9 % Sodium Chloride 50 Ml Vial IV 08/27/23 17:02 100 ml ONCE ONE Administration ORDERS Category Date Time Status CT angio LE BI Stat Cat Scan 08/27/23 14:[address] lumbar spine wo con Stat Cat Scan 08/27/23 14:43 Completed XR knee LT 3V Stat Exams 08/27/23 14:43 Completed CBC w/Auto Diff [Complete Blood Count Auto Diff] Stat Lab 08/27/23 14:58 Completed CK [Creatine Kinase] Stat Lab 08/27/23 14:58 Completed CMP [Comprehensive Metabolic Panel] Stat Lab 08/27/23 14:58 Completed Lactic Acid Stat Lab 08/27/23 14:58 Completed Medical Decision Narrative: Patient with history and exam per above presenting for evaluation of left lower extremity pain Diagnoses considered include degenerative disc disease, sciatica, PAD, fracture, Flaherty's cyst, osteoarthritis among others ED workup and treatment included: ED MEDICATIONS Discontinued Medications Generic Name Dose Route Start Last Admin Trade Name Freq PRN Reason Stop Dose Admin Ketorolac Tromethamine 15 mg 08/27/23 14:43 08/27/23 15:03 Ketorolac 30mg/Ml Vial IV 08/27/23 14:44 15 mg ONCE ONE Administration Methocarbamol 500 mg 08/27/23 14:43 08/27/23 15:03 Methocarbamol 500mg Tablet PO 08/27/23 14:44 500 mg ONCE ONE Administration ORDERS Category Date Time Status CT angio LE BI Stat Cat Scan 08/27/23 14:[address] lumbar spine wo con Stat Cat Scan 08/27/23 14:43 Ordered XR knee LT 3V Stat Exams 08/27/23 14:43 Ordered CBC w/Auto Diff [Complete Blood Count Auto Diff] Stat Lab 08/27/23 14:58 Completed CK [Creatine Kinase] Stat Lab 08/27/23 14:58 Completed CMP [Comprehensive Metabolic Panel] Stat Lab 08/27/23 14:58 Completed Lactic Acid Stat Lab 08/27/23 14:58 Completed Labs pending at this time. Imaging pending at this time. Care was transferred to incoming physician. <Russ Kraft MD - Last Filed: 08/27/23 18:01> Vital Signs: 08/27/23 13:35 08/27/23 14:00 08/27/23 14:30 Temperature 97.9 F Temperature Source Oral Pulse Rate 56 L 50 L Pulse Rate [Radial] 66 Respiratory Rate 16 Blood Pressure 130/67 139/77 Blood Pressure [Right Arm] 139/78 Blood Pressure Mean 97 Blood Pressure Mean [Right Arm] 98 Blood Pressure Source [Right Arm] Automatic Cuff Blood Pressure Position [Right Arm] Sitting 02 Sat by Pulse Oximetry 98 96 95 Oxygen Delivery Method Room Air Room Air 08/27/23 15:01 08/27/23 15:30 08/27/23 16:00 Temperature Temperature Source Pulse Rate 49 L 52 L 60 Pulse Rate [Radial] Respiratory Rate Blood Pressure 141/66 H 135/65 122/60 Blood Pressure [Right Arm] Blood Pressure Mean 87 Blood Pressure Mean [Right Arm] Blood Pressure Source [Right Arm] Blood Pressure Position [Right Arm] 02 Sat by Pulse Oximetry 95 97 96 Oxygen Delivery Method Room Air Room Air 08/27/23 16:30 08/27/23 17:00 Temperature Temperature Source Pulse Rate 51 L 59 L Pulse Rate [Radial] Respiratory Rate Blood Pressure 138/63 147/66 H Blood Pressure [Right Arm] Blood Pressure Mean Blood Pressure Mean [Right Arm] Blood Pressure Source [Right Arm] Blood Pressure Position [Right Arm] 02 Sat by Pulse Oximetry 100 100 Oxygen Delivery Method Room Air Room Air Lab Data Lab Results 08/27/23 14:58: WBC 7.7, RBC 4.38, Hgb 12.8, Hct 38.4, MCV 87.7, MCH 29.2, MCHC 33.3, RDW 14.3, Plt Count 270, MPV 8.0, Neut % (Auto) 67.5, Lymph % (Auto) 25.8, [place] % (Auto) 4.4, Eos % (Auto) 1.5, Baso % (Auto) 0.8, Neut # (Auto) 5.2, Lymph # (Auto) 2.0, [place] # (Auto) 0.3, Eos # (Auto) 0.1, Baso # (Auto) 0.1, Sodium 143, Potassium 3.5, Chloride 113 H, Carbon Dioxide 28, Anion Gap 5.5, BUN 11, Creatinine 0.80, Estimated Creat Clear 121, Estimated GFR 75, Est GFR ( Amer) 90, Glucose 117 H, Lactate 1.2, Calcium 8.8, Total Bilirubin 0.3, AST 24, ALT 19, Alkaline Phosphatase 110, Total Creatine Kinase 41, Total Protein 6.9, Albumin 3.6, Globulin 3.3 H, Albumin/Globulin Ratio 1.1 Orders (Tests/Meds): ED MEDICATIONS Discontinued Medications Generic Name Dose Route Start Last Admin Trade Name Freq PRN Reason Stop Dose Admin Iopamidol 120 ml 08/27/23 17:01 08/27/23 17:02 Iopamidol-370 (76%);100ml Bottle IV 08/27/23 17:02 120 ml ONCE ONE Administration Ketorolac Tromethamine 15 mg 08/27/23 14:43 08/27/23 15:03 Ketorolac 30mg/Ml Vial IV 08/27/23 14:44 15 mg ONCE ONE Administration Methocarbamol 500 mg 08/27/23 14:43 08/27/23 15:03 Methocarbamol 500mg Tablet PO 08/27/23 14:44 500 mg ONCE ONE Administration Sodium Chloride 10 ml 08/27/23 17:01 08/27/23 17:02 Sodium Chloride 0.9% 10ml Syr (Rad Only) IV 08/27/23 17:02 10 ml ONCE ONE Administration Sodium Chloride 100 ml 08/27/23 17:01 08/27/23 17:02 0.9 % Sodium Chloride 50 Ml Vial IV 08/27/23 17:02 100 ml ONCE ONE Administration ORDERS Category Date Time Status CT angio LE BI Stat Cat Scan 08/27/23 14:[address] lumbar spine wo con Stat Cat Scan 08/27/23 14:43 Completed XR knee LT 3V Stat Exams 08/27/23 14:43 Completed CBC w/Auto Diff [Complete Blood Count Auto Diff] Stat Lab 08/27/23 14:58 Completed CK [Creatine Kinase] Stat Lab 08/27/23 14:58 Completed CMP [Comprehensive Metabolic Panel] Stat Lab 08/27/23 14:58 Completed Lactic Acid Stat Lab 08/27/23 14:58 Completed Medical Decision Narrative: Patient with history and exam per above presenting for evaluation of left lower extremity pain Diagnoses considered include degenerative disc disease, sciatica, PAD, fracture, Flaherty's cyst, osteoarthritis among others ED workup and treatment included: ED MEDICATIONS Discontinued Medications Generic Name Dose Route Start Last Admin Trade Name Freq PRN Reason Stop Dose Admin Ketorolac Tromethamine 15 mg 08/27/23 14:43 08/27/23 15:03 Ketorolac 30mg/Ml Vial IV 08/27/23 14:44 15 mg ONCE ONE Administration Methocarbamol 500 mg 08/27/23 14:43 08/27/23 15:03 Methocarbamol 500mg Tablet PO 08/27/23 14:44 500 mg ONCE ONE Administration ORDERS Category Date Time Status CT angio LE BI Stat Cat Scan 08/27/23 14:[address] lumbar spine wo con Stat Cat Scan 08/27/23 14:43 Ordered XR knee LT 3V Stat Exams 08/27/23 14:43 Ordered CBC w/Auto Diff [Complete Blood Count Auto Diff] Stat Lab 08/27/23 14:58 Completed CK [Creatine Kinase] Stat Lab 08/27/23 14:58 Completed CMP [Comprehensive Metabolic Panel] Stat Lab 08/27/23 14:58 Completed Lactic Acid Stat Lab 08/27/23 14:58 Completed Labs pending at this time. Imaging pending at this time. Care was transferred to incoming physician. Abena: I assumed primary responsibility for this patient after signout from previous physician. On my evaluation, patient largely asymptomatic arrest. Nonactionable hematologic labs. CT of the lumbar spine with anterolisthesis L5- S1 with no significant central spinal stenosis. Patient does have narrowing at left neural foramina likely contributing to patient's pain. Angiogram of the left lower extremity normal. Denying bowel or bladder dysfunction, weakness, so I feel appropriate for outpatient management. Because patient at baseline without signs or symptoms of clinical decompensation, deemed appropriate for discharge. Results were relayed to patient who voiced understanding and were agreeable to outpatient management and follow up. I discussed my clinical impression with patient and answered all questions. At this time, the evidence for any other entities in the differential is insufficient to warrant any further testing or ED observation. This was explained as well. Advisory was given that persistent or worsening symptoms require further evaluation. I confirmed the understanding of this discussion. Critical Care <Augusto Fox MD - Last Filed: 08/27/23 16:25> Critical Care Time Critical Care Time: No
--- NOTE | 2023-08-27 14:43 | CT_ITS ---
PROCEDURE INFORMATION: Exam: CTA Abdominal Aorta and Bilateral Lower Extremities (Run-off) With Contrast Exam date and time: 08/27/2023 4:49 PM Age: 53 years old Clinical indication: Other: Pain; Additional info: Left leg claudication SX TECHNIQUE: Imaging protocol: Computed tomographic angiography of the of the abdominal aorta, pelvis and bilateral lower extremities with contrast. 3D rendering (Not supervised by radiologist): MIP and/or 3D reconstructed images were created by the technologist. Radiation optimization: All CT scans at this facility use at least one of these dose optimization techniques: automated exposure control; mA and/or kV adjustment per patient size (includes targeted exams where dose is matched to clinical indication); or iterative reconstruction. Contrast material: ISOVUE; Contrast volume: 120 ml; Contrast route: IV; COMPARISON: CR XR KNEE RT 3V 11/21/2022 3:22 AM FINDINGS: Aorta: No aortic aneurysm. No aortic dissection. Celiac trunk and mesenteric arteries: No occlusion or significant stenosis. Renal arteries: No occlusion or significant stenosis. Right iliac arteries: No occlusion or significant stenosis. Right femoral/popliteal arteries: No occlusion or significant stenosis. Right infrapopliteal arteries: No occlusion or significant stenosis. Left iliac arteries: No occlusion or significant stenosis. Left femoral/popliteal arteries: No occlusion or significant stenosis. Left infrapopliteal arteries: No occlusion or significant stenosis. Lungs: The visualized lung bases demonstrate no focal infiltrates. Liver: The liver appears within normal limits. Gallbladder and biliary ducts: There has been a cholecystectomy. Pancreas: The pancreas is normal. Spleen: The spleen is normal. Adrenal glands: The adrenal glands appear within normal limits. Kidneys and ureters: The kidneys are normal. Stomach and bowel: The stomach appears within normal limits. No wall thickening or inflammatory change. Appendix: No evidence of appendicitis. Urinary bladder: The bladder appears within normal limits. No wall thickening. Reproductive: There has been a hysterectomy. Intraperitoneal space: No free air. No evidence for focal fluid collection or ascites. No evidence for omental thickening. Lymph nodes: Unremarkable. No pathologically enlarged lymph nodes are identified. Bones/joints: No acute fracture. No dislocation. Soft tissues: The visualize subcutaneous soft tissues and abdominal wall and flank wall appear unremarkable. IMPRESSION: No stenosis or occlusion identified on this exam.
--- NOTE | 2023-08-27 14:43 | XR_ITS ---
PROCEDURE INFORMATION: Exam: XR Left Knee Exam date and time: 08/27/2023 4:55 PM Age: 53 years old Clinical indication: Pain; Knee; Left; Additional info: Knee pain/atraumatic TECHNIQUE: Imaging protocol: Radiologic exam of the left knee. Views: 3 views. COMPARISON: CT ANGIO LE BI 08/27/2023 4:49 PM FINDINGS: Bones/joints: Minimal marginal osteophyte formation within the medial and lateral compartments. No significant joint space narrowing noted on this view.. Soft tissues: Normal. IMPRESSION: Minimal degenerative changes. No acute imaging findings.
--- NOTE | 2023-08-27 14:43 | CT_ITS ---
PROCEDURE INFORMATION: Exam: CT Lumbar Spine Without Contrast Exam date and time: 08/27/2023 4:47 PM Age: 53 years old Clinical indication: Low back pain; Additional info: Radicular left leg pain TECHNIQUE: Imaging protocol: Computed tomography of the lumbar spine without contrast. Radiation optimization: All CT scans at this facility use at least one of these dose optimization techniques: automated exposure control; mA and/or kV adjustment per patient size (includes targeted exams where dose is matched to clinical indication); or iterative reconstruction. COMPARISON: CT ABDOMEN PELVIS W CON 03/30/2022 1:45 AM FINDINGS: Bones/joints: No acute fracture. Bilateral pars interarticularis defects are present at L5. There is associated grade 1 anterolisthesis. Moderate left neural foraminal stenosis noted at L5-S1 due to foraminal extension of endplate osteophyte formation with the anterolisthesis at this level also contributory. Soft tissues: Unremarkable. IMPRESSION: 1. No evidence for acute fracture. 2. Bilateral pars interarticularis defects are present at L5. There is associated grade 1 anterolisthesis. 3. Moderate left neural foraminal stenosis noted at L5-S1 due to foraminal extension of endplate osteophyte formation with the anterolisthesis at this level also contributory.
[2023-08-27] MEDS: METHOCARBAMOL 500MG TABLET 500 MG PO (15:03)
[2023-08-27] MEDS: KETOROLAC 30MG/ML VIAL 15 MG IV (15:03)
[2023-08-27 15:11] LABS: Basophils # 0.1 K/mm3 (0-0.2); Basophils % 0.8 % (0.1-2.0); Eosinophils # 0.1 K/mm3 (0.0-0.4); Eosinophils % 1.5 % (0.1-12.0); Hematocrit 38.4 % (37.0-47.0); Hemoglobin 12.8 g/dL (12.2-16.2); Lymphocytes % 25.8 % (10-50); Mean Corpuscular HGB Conc 33.3 g/dL (31.8-35.4); Mean Corpuscular Hemoglobin 29.2 pg (27.0-31.2); Mean Corpuscular Volume 87.7 fl (81-99); Monocytes # 0.3 K/mm3 (0.1-1.0); Monocytes % 4.4 % (1.7-9.3); Neutrophils # 5.2 K/mm3 (1.8-7.8); Neutrophils % 67.5 % (37.0-80.0); Platelet Count 270 K/mm3 (142-424); Red Blood Count 4.38 M/mm3 (4.20-5.40); Red Cell Distribution Width 14.3 % (11.5-17.5); White Blood Count 7.7 K/mm3 (4.8-10.8)
[2023-08-27 15:33] LABS: Chloride 113 mmol/L (98-107); Sodium 143 mmol/L (136-145)
[2023-08-27 15:34] LABS: Potassium 3.5 mmoL/L (3.5-5.1)
[2023-08-27 15:35] LABS: Lactic Acid 1.2 mmol/L (0.7-2.1)
[2023-08-27 15:36] LABS: Alanine Aminotransferase 19 U/L (12-78); Alkaline Phosphatase 110 U/L (38-126); Aspartate Amino Transferase 24 U/L (14-36); Bilirubin,Total 0.3 mg/dl (0.2-1.3); Blood Urea Nitrogen 11 mg/dl (7-17); Creatinine Clearance Estimated 121 mL/min (50-200); Estimated Glomerular Filt Rate 75 ml/min (>60); GFR (African American) 90 ML/MIN (>60)
[2023-08-27 15:37] LABS: Albumin Level 3.6 g/dl (3.5-5.0); Albumin/Globulin Ratio 1.1 (1.1-1.8); Anion Gap 5.5 mEq/L (5-15); Calcium 8.8 mg/dl (8.4-10.2); Carbon Dioxide 28 mmol/L (22.0-30.0); Creatine Kinase 41 U/L (30-135); Globulin 3.3 g/dL (1.3-3.2); Glucose 117 mg/dl (74-100); Total Protein,Serum 6.9 g/dl (6.3-8.2)
[2023-08-27] MEDS: 0.9 % SODIUM CHLORIDE 50 ML VIAL 100 ML IV (17:02)
[2023-08-27] MEDS: IOPAMIDOL-370 (76%);100ML BOTTLE 120 ML IV (17:02)
[2023-08-27] MEDS: SODIUM CHLORIDE 0.9% 10ML SYR (RAD ONLY) 10 ML IV (17:02)
--- NOTE | 2023-08-27 17:02 | PC.NURSE ---
PT RETURNED FROM CT
--- NOTE | 2023-08-27 18:02 | PC.NURSE ---
DR RYAN AT BEDSIDE TO UPDATE PT AND FAMILY
== END 2023-08-27 18:21 | disposition home or self-care (01) ==
PROVIDERS: Emergency Medicine; Emergency Provider Emergency Medicine; PCP Nurse Practitioner
DX: M79.605 Pain in left leg (principal); M99.53 Intervertebral disc stenosis of neural canal of lumbar region; J44.9 Chronic obstructive pulmonary disease, unspecified; I10 Essential (primary) hypertension; E78.5 Hyperlipidemia, unspecified
CPT/HCPCS: 72131; 73562; 73706; 80053; 82550; 83605; 85025; 96374; 99285; J1885; Q9967

== ENCOUNTER 2023-11-15 20:44 | Emergency (ER) | payer MEDICARE, MEDICAID, SELFPAY ==
[2023-11-15] VITALS (7 sets, daily range): BP systolic 122–137; BP diastolic 68–94; PULSE 58–86; RESP 13–26; TEMP 37.1; O2SAT 95–98; BMI 39.0
--- NOTE | 2023-11-15 20:36 | ECG_ITS ---
APPROVED REPORT Exam: Resting ECG HR:85 bpm ECG Measurements Heart Rate 85 AXES MT 165 P 16 QRSd 92 QRS 19 QT 399 T 60 QTc 441 Conclusion SINUS RHYTHM LOW QRS VOLTAGE IN PRECORDIAL LEADS [QRS DEFLECTION < 1.0 mV IN CHEST LEADS] NONSPECIFIC ST & T-WAVE ABNORMALITY BORDERLINE ECG No STEMI Electronically signed by : DAISY DOUGLASS, 11/16/2023 06:51:09
--- NOTE | 2023-11-15 21:09 | XR_ITS ---
PROCEDURE INFORMATION: Exam: XR Chest Exam date and time: 11/15/2023 9:21 PM Age: 53 years old Clinical indication: Dyspnea TECHNIQUE: Imaging protocol: Radiologic exam of the chest. Views: 1 view. COMPARISON: CR XR CHEST PORTABLE 04/19/2023 9:49 PM FINDINGS: Lungs: Unremarkable. No consolidation. Pleural spaces: Unremarkable. No pleural effusion. No pneumothorax. Heart/Mediastinum: Unremarkable. No cardiomegaly. Vasculature: Unremarkable. Bones/joints: Unremarkable. IMPRESSION: No acute findings.
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
[2023-11-15] MEDS: LACTATED RINGERS 1000ML 1,000 ML 999 ML IV (21:14)
--- NOTE | 2023-11-15 21:17 | PC.NURSE ---
pt helped to bathroom
[2023-11-15 21:32] LABS: Alanine Aminotransferase 27 U/L (12-78); Albumin Level 4.3 g/dl (3.5-5.0); Albumin/Globulin Ratio 1.1 (1.1-1.8); Alkaline Phosphatase 99 U/L (38-126); Anion Gap 11.6 mEq/L (5-15); Aspartate Amino Transferase 28 U/L (14-36); Bilirubin,Total 0.5 mg/dl (0.2-1.3); Blood Urea Nitrogen 15 mg/dl (7-17); Calcium 9.7 mg/dl (8.4-10.2); Carbon Dioxide 27 mmol/L (22.0-30.0); Chloride 106 mmol/L (98-107); Creatinine Clearance Estimated 92 mL/min (50-200); Estimated Glomerular Filt Rate 58 ml/min (>60); GFR (African American) 70 ML/MIN (>60); Globulin 3.8 g/dL (1.3-3.2); Glucose 109 mg/dl (74-100); Potassium 3.6 mmoL/L (3.5-5.1); Sodium 141 mmol/L (136-145); Total Protein,Serum 8.1 g/dl (6.3-8.2)
[2023-11-15 21:37] LABS: D-Dimer < 0.25 ug/mL (0.0-0.5)
[2023-11-15 21:45] LABS: Troponin I < 0.01 ng/ml (0.00-0.034)
[2023-11-15 21:47] LABS: Basophils # 0.1 K/mm3 (0-0.2); Basophils % 0.9 % (0.1-2.0); Eosinophils # 0.1 K/mm3 (0.0-0.4); Eosinophils % 0.7 % (0.1-12.0); Hematocrit 41.3 % (37.0-47.0); Hemoglobin 13.9 g/dL (12.2-16.2); Lymphocytes # 4.9 K/mm3 (0.7-4.5); Lymphocytes % 44.1 % (10-50); Mean Corpuscular HGB Conc 33.7 g/dL (31.8-35.4); Mean Corpuscular Hemoglobin 29.1 pg (27.0-31.2); Mean Corpuscular Volume 86.3 fl (81-99); Mean Platelet Volume 7.8 fl (7.4-10.4); Monocytes # 0.7 K/mm3 (0.1-1.0); Monocytes % 6.3 % (1.7-9.3); Neutrophils # 5.3 K/mm3 (1.8-7.8); Platelet Count 288 K/mm3 (142-424); Red Blood Count 4.79 M/mm3 (4.20-5.40); Red Cell Distribution Width 14.1 % (11.5-17.5)
[2023-11-16] VITALS: BP 132/74; PULSE 75; RESP 22; O2SAT 97
[2023-11-16 00:48] LABS: Troponin I < 0.01 ng/ml (0.00-0.034)
[2023-11-16 00:51] VITALS: BP 137/74; PULSE 79; RESP 18; TEMP 37.1; O2SAT 98
--- NOTE | 2023-11-16 00:51 | PC.NURSE ---
Dr. Cervantes at bedside s/w pt and family
== END 2023-11-16 00:54 | disposition home or self-care (01) ==
PROVIDERS: Emergency Provider Student in an Organized Health Care Education/Training Program; PCP Family Medicine
DX: R07.9 Chest pain, unspecified (principal); R56.9 Unspecified convulsions
CPT/HCPCS: 71045; 80053; 84484; 85025; 85378; 93005; 96360; 99285; J7120

== ENCOUNTER 2023-12-28 15:30 | Outpatient (CLI) | payer MEDICARE, MEDICAID, SELFPAY ==
[2023-12-31 22:08] LABS: Atopobium vaginae High - 2 Score (.); BVAB2 High - 2 Score (.); Candida albicans NAA Negative (Negative); Candida glabrata Negative (Negative); Chlamydia Trachomatis NAA Negative (Negative); HSV 1 NAA Negative (Negative); HSV 2 NAA Negative (Negative); Megasphaera 1 High - 2 Score (.); Neisseria gonorrhoeae NAA Negative (Negative); Trich vag NAA Negative (Negative)
== END 2023-12-28 23:59 | disposition home or self-care (01) ==
LOC: LAB.DROPOF 15:30
PROVIDERS: PCP Urology; Visit Provider Urology
DX: R33.9 Retention of urine, unspecified (principal); N89.8 Other specified noninflammatory disorders of vagina
CPT/HCPCS: 87491; 87529; 87591; 87661; 87798; 87801

== ENCOUNTER 2024-01-01 08:45 | Outpatient (CLI) | payer MEDICARE, MEDICAID, SELFPAY ==
--- NOTE | 2024-01-01 08:45 | US_ITS ---
FINAL REPORT CLINICAL HISTORY: UTI COMPARISON: None FINDINGS: ULTRASOUND BLADDER WITH POST VOID RESIDUAL Bladder volumes were estimated based on 3 dimensional measurements, pre- and postvoid. Prevoid bladder volume: 308 mls. There is no wall thickening of the urinary bladder. Bilateral ureteral jets are seen. Postvoid bladder volume: 31 mls IMPRESSION: Small postvoid residual. Otherwise, no acute findings.. Reviewed, Interpreted and Dictated by Lauren Nj MD Transcribed by Jerica Roman Authenticated and [facility]
--- NOTE | 2024-01-01 08:45 | US_ITS ---
FINAL REPORT CLINICAL HISTORY: uti COMPARISON: None FINDINGS: RENAL ULTRASOUND Ultrasound images of the kidneys were obtained. Limited images of the liver parenchyma demonstrates normal echogenicity. The right kidney measures 11.3 cm in length. It is normal echogenicity. There is no hydronephrosis. The left kidney measures 11.1 cm in length. It is normal echogenicity. There is no hydronephrosis. IMPRESSION: Morphologically normal renal ultrasound. Reviewed, Interpreted and Dictated by Lauren Nj MD Transcribed by Jerica Roman Authenticated and [facility]
== END 2024-01-01 23:59 | disposition home or self-care (01) ==
LOC: RAD 08:45
PROVIDERS: PCP Neurological Surgery; Visit Provider Urology
DX: N39.0 Urinary tract infection, site not specified (principal); R33.9 Retention of urine, unspecified
CPT/HCPCS: 76770; 76857

== ENCOUNTER 2024-01-27 09:49 | Outpatient (POV) | payer MEDICARE, MEDICAID, SELFPAY ==
[2024-01-27 10:16] VITALS: BP 126/38; PULSE 58; RESP 18; O2SAT 96; BMI 40.9
--- NOTE | 2024-01-27 11:24 | EXP.PAIN.OV ---
HPI Data of Consult Patient: new to practice Consult date: 01/27/24 Requesting Physician: Dora Quintana APRN Primary Care Provider: Maria Del Carmen Rivera APRN Consult Narrative Reason for consult: Low back pain, bilateral hip pain, upper thigh pain History of present illness: Ms. Tobias is a 53 year old female who presents today as a new patient. She is a referral from [facility]. Today she rates her pain a 9 out of 10. Patient states that she has had chronic low back pain for at least 10 to 15 years unrelated to any specific trauma or injury. She does state that the pain goes into her hips and into her upper thighs. Patient describes it as an aching, throbbing sensation with numbness and tingling. Patient states that increased activity seems to aggravate her overall symptoms as well as prolonged positioning such as sitting, standing. She states that she frequently has to change positions multiple times due to the pain. Patient states the pain was severe enough that she had to go to the ER doctor recently where they did not do a CT. She states that that doctor discussed that she probably needed surgery to shave down some bone spurs. Patient states she has never seen a neurosurgeon and denies any prior injection or surgery history. She has tried oral medications such as Tylenol, heat and ice and topicals with minimal relief. Patient is currently managed with gabapentin and tramadol from an outside provider and states this does take the edge off. Patient has tried at home stretching exercise for longer than 12 weeks with no additional improvement. Her Juan C has been reviewed and is appropriate. CC: Dora Quintana APRN [facility] Disclaimer: The information contained in this section may have been updated after the patient was seen, as this information can be updated by other users. Medical History Depression Seizures Migraine Diabetes mellitus, type 2 COPD (chronic obstructive pulmonary disease) Hyperlipidemia Hypertension Surgical History History of carpal tunnel surgery History of hysterectomy History of section History of cholecystectomy History of appendectomy Family History Other No significant family history Social History (Updated 01/27/24 @ 10:20 by Lilliana Diez RN) Smoking Status: Never smoker years smoked: 20 second hand exposure: Yes alcohol intake: never substance use type: denies use current occupational status: unemployed Travel in the last 8 weeks: None household members: spouse housing: house current occupational exposures/hazards: No caffeine: Yes Review of Systems Review of Systems Review of systems:: pertinent systems reviewed and negative unless documented below Review of systems (narrative): Review of Systems: General: No recent weight changes, no fever, no sleep disturbances Respiratory: No cough, no shortness of air, no recurring pulmonary infections Cardiovascular/peripheral vascular: No chest pain, no palpitations, no edema, no shortness of breath Gastrointestinal: No new onset incontinence, normal bowel movements reported Genitourinary: No new onset incontinence Musculoskeletal: Low back pain, bilateral hip pain Psychiatric: [Normal mood/affect] Neurological: [Denies weakness in extremities], [denies balance issues] Meds Home Medications and Allergies Home Medications ?Medication ?Instructions ?Recorded ?Confirmed ?Type gabapentin 100 mg capsule 100 mg PO TID #0 caps 03/31/22 01/27/24 Rx sertraline 100 mg tablet 50 mg PO BID Depression 12/28/23 01/27/24 History estradiol 0.01% (0.1 mg/gram) See Rx Instructions vaginal 01/04/24 01/27/24 Rx vaginal cream .COMPLEX #42.5 grams tamsulosin 0.4 mg capsule (Flomax) 0.4 mg PO DAILY #30 caps 01/04/24 01/27/24 Rx New Prescriptions to Start Prescriptions: Allergies Allergy/AdvReac Type Severity Reaction Status Date / Time codeine (CODEINE) Allergy Unknown Verified 01/04/24 13:14 Sulfa (Sulfonamide Allergy Unknown Verified 01/04/24 13:14 Antibiotics) (SULFA (SULFONAMIDE ANTIBIOTICS)) Objective Vital signs: Pulse Resp BP Pulse Ox O2 Del Method 58 L 18 126/38 L 96 Room Air 01/27/24 10:16 01/27/24 10:16 01/27/24 10:16 01/27/24 10:16 01/27/24 10:16 Narrative: Physical Exam: General: Alert and oriented x3, no acute distress, pleasant and cooperative Lungs: Respirations even and unlabored, symmetrical chest expansion Eyes: PERRL Musculoskeletal: Flexion and extension of lumbar [spine] somewhat guarded secondary to pain, [antalgic gait noted] point tenderness along bilateral SIs with positive bilateral Lissette's, Lianne's, Gaenslen's, compression and distraction exam Neurological: Speech clear, no gross sensory deficit Additional findings Additional findings: FINDINGS: Bones/joints: No acute fracture. Bilateral pars interarticularis defects are present at L5. There is associated grade 1 anterolisthesis. Moderate left neural foraminal stenosis noted at L5-S1 due to foraminal extension of endplate osteophyte formation with the anterolisthesis at this level also contributory. Soft tissues: Unremarkable. IMPRESSION: 1. No evidence for acute fracture. 2. Bilateral pars interarticularis defects are present at L5. There is associated grade 1 anterolisthesis. 3. Moderate left neural foraminal stenosis noted at L5-S1 due to foraminal extension of endplate osteophyte formation with the anterolisthesis at this level also contributory. Assessment and Plan *Assessment and plan (1) Bilateral sacroiliitis: Status: Acute Category: Medical Code(s): M46.1 - Sacroiliitis, not elsewhere classified (2) Low back pain: Status: Acute Category: Medical Code(s): M54.50 - Low back pain, unspecified (3) Bilateral hip pain: Status: Acute Category: Medical Code(s): M25.551 - Pain in right hip; M25.552 - Pain in left hip Plan Patient is experiencing worsening pain along the low back and bilateral hips. They did have limited range of motion of the lumbar spine along with point tenderness along bilateral SI joints and a positive bilateral Lissette's, Lianne's, Gaenslen's, compression and distraction exam. I did discuss with the patient that I do believe they would benefit from bilateral SI injections. Risk and benefits were discussed with the patient and they would like to proceed forward with this option. Patient has tried and failed conservative therapy including continued at home stretching exercise for longer than 12 weeks. I will order the patient a compounded cream patient will be scheduled for bilateral SI injections under fluoroscopy. Patient has been instructed to contact the clinic with any concerns before the next appointment. Dr. Ruff has reviewed this note and agrees with this plan of care. This note was dictated using voice recognition software and make contain errors or omissions. All injections are used with Lidocaine or Bupivacaine and Depo Medrol.
== END 2024-01-27 23:59 | disposition home or self-care (01) ==
LOC: SC.PAIN 09:51
PROVIDERS: PCP Nurse Practitioner; Visit Provider Nurse Practitioner Family
DX: M46.1 Sacroiliitis, not elsewhere classified (principal); M54.50 Low back pain, unspecified; M25.551 Pain in right hip; M25.552 Pain in left hip
CPT/HCPCS: 99202; G0463

== ENCOUNTER 2024-02-23 08:37 | Day surgery (SDC) | payer MEDICARE, MEDICAID, SELFPAY ==
[2024-02-23 09:22] VITALS: BP 124/93; PULSE 72; RESP 18; TEMP 36.6; O2SAT 97; BMI 40.7
[2024-02-23] MEDS: BUPIVACAINE 0.25% 10ML INJ 25 MG IJ (09:35)
[2024-02-23] MEDS: methylPREDNISolone ACETATE 80MG/ML VIAL 80 MG (09:36)
[2024-02-23] MEDS: LIDOCAINE 1% 5ML PF VIAL 5 ML (09:36)
[2024-02-23 09:38] VITALS: BP 137/65; PULSE 67; RESP 18; O2SAT 97
[2024-02-23 09:40] VITALS: BP 137/65; PULSE 67; RESP 18; O2SAT 97
[2024-02-23 09:42] LABS: POC Glucose,Bedside 120 (70-110)
--- NOTE | 2024-02-23 09:47 | EXP.PAIN.PRO ---
Procedure Date: 02/23/24 Time: 09:45 Anesthesiologist:: Lars Sharma CRNA Complications:: None Pre-procedure Diagnosis:: Bilateral sacroiliitis Post-procedure Diagnosis:: Same Indications for Procedure:: Patient is a pleasant 53-year-old female comes our clinic today for bilateral sacroiliac joint injections cortisone and local anesthetic. She describes low lumbar back pain off the midline bilaterally. Bilateral posterior hip pain. Difficulty transitioning from sitting to standing. She rates her pain 7/10. Procedure Details:: Procedure: Bilateral sacroiliac joint injections under fluoroscopy Informed consent was obtained and the risks and benefits of the procedure were explained to the patient.~ The patient was taken to the procedure room and noninvasive monitors were placed including a noninvasive blood pressure cuff and pulse oximeter.~ The patient was placed prone on the procedure table. Both hips were cleansed using Betadine as a cleansing solution. C-arm fluoroscopy was used to view the right sacroiliac joint.~ The skin and subcutaneous tissues were anesthetized using lidocaine 1.5% and a 25-gauge needle.~ After this, a 22-gauge spinal needle was inserted under fluoroscopic guidance into the inferior aspect of the right sacroiliac joint.~ Omnipaque dye was injected and good spread was seen throughout the joint.~ After this, approximately 5 mL of bupivacaine, 0.25% and Depo-Medrol, 40 mg was incrementally injected into the right sacroiliac joint. We then moved to the left sacroiliac joint.~ The skin and subcutaneous tissues were anesthetized using lidocaine 1.5% and a 25-gauge needle.~ After this, a 22-gauge spinal needle was inserted under fluoroscopic guidance into the inferior aspect of the left sacroiliac joint.~ Omnipaque dye was injected and good spread was seen throughout the joint. After this, approximately 5 mL of bupivacaine, 0.25% and Depo-Medrol, 40 mg was incrementally injected into the left sacroiliac joint.~ The patient tolerated the procedure well with no complications. The patient was observed in the Pain Clinic and then was discharged home neurologically intact. Plan and Disposition:: Patient was discharged without incident.
[2024-02-23 09:49] VITALS: BP 125/75; PULSE 84; RESP 18; O2SAT 95
== END 2024-02-23 09:49 | disposition home or self-care (01) ==
PROVIDERS: PCP Nurse Practitioner; Visit Provider Nurse Anesthetist, Certified Registered
DX: M46.1 Sacroiliitis, not elsewhere classified (principal)
CPT/HCPCS: 27096; 82962; G0260; J1010

== ENCOUNTER 2024-04-21 14:55 | Outpatient (POV) | payer MEDICARE, MEDICAID, SELFPAY ==
--- NOTE | 2024-04-21 15:02 | EXP.PAIN.SOA ---
[facility] Disclaimer: The information contained in this section may have been updated after the patient was seen, as this information can be updated by other users. Medical History Depression Seizures Migraine Diabetes mellitus, type 2 COPD (chronic obstructive pulmonary disease) Hyperlipidemia Hypertension Surgical History History of carpal tunnel surgery History of hysterectomy History of section History of cholecystectomy History of appendectomy Family History Other No significant family history Social History (Updated 01/27/24 @ 10:20 by Lilliana Diez RN) Smoking Status: Never smoker years smoked: 20 second hand exposure: Yes alcohol intake: never substance use type: denies use current occupational status: unemployed Travel in the last 8 weeks: None household members: spouse housing: house current occupational exposures/hazards: No caffeine: Yes PM Subjective & Objective Subjective Subjective:: Patient is a pleasant 53-year-old female who presents today for follow-up of SI injections on 02/23/2024. Today she rates her pain a 9 out of 10. Patient denies any new injury or trauma. She does state that she had approximately 90% relief following her diagnostic SI injections. She states that the left side is doing wonderful however the right side has started to increase in frequency along with pain along the outside of her right hip. Patient states the pain is constant and is interfering with her ability perform activities of daily living such as cooking and cleaning. Patient is interested in additional injection therapy as the last diagnostic injections were so helpful. Patient denies any other changes. Patient has tried and failed oral medication, heat and ice, topicals, at home stretching exercise for longer than 12 weeks. Patient is currently managed with gabapentin and tramadol from an outside provider. Her Juan C has been reviewed and is appropriate. Patient does state that the compounded cream was not covered by her insurance. Review of Systems: General: No recent weight changes, no fever, no sleep disturbances Respiratory: No cough, no shortness of air, no recurring pulmonary infections Cardiovascular/peripheral vascular: No chest pain, no palpitations, no edema, no shortness of breath Gastrointestinal: No new onset incontinence, normal bowel movements reported Genitourinary: No new onset incontinence Musculoskeletal: Right hip pain, low back pain right sided Psychiatric: [Normal mood/affect] Neurological: [Denies weakness in extremities], [denies balance issues] Pain at rest (0-10 scale): 9 Objective Objective:: Physical Exam: General: Alert and oriented x3, no acute distress, pleasant and cooperative Lungs: Respirations even and unlabored, symmetrical chest expansion Eyes: PERRL Musculoskeletal: Flexion and extension of lumbar [spine] somewhat guarded secondary to pain, [antalgic gait noted] point tenderness along right SI and right greater trochanteric bursa with positive right Lissette's, Lianne's, Gaenslen's, compression and distraction exam Neurological: Speech clear, no gross sensory deficit Has patient had previous pain injection?: Yes Percent improvement in pain since last injection: 90% Conservative treatment options previously tried: Home exercise plan Length of treatment: Longer than 12 weeks Meds Home Medications and Allergies Home Medications ?Medication ?Instructions ?Recorded ?Confirmed ?Type gabapentin 100 mg capsule 100 mg PO TID #0 caps 03/31/22 04/21/24 Rx sertraline 100 mg tablet 50 mg PO BID Depression 12/28/23 04/21/24 History estradiol 0.01% (0.1 mg/gram) See Rx Instructions vaginal 01/04/24 04/21/24 Rx vaginal cream .COMPLEX #42.5 grams tamsulosin 0.4 mg capsule (Flomax) 0.4 mg PO DAILY #30 caps 01/04/24 04/21/24 Rx New Prescriptions to Start Prescriptions: Allergies Allergy/AdvReac Type Severity Reaction Status Date / Time codeine (CODEINE) Allergy Unknown Nausea Verified 02/23/24 09:21 Sulfa (Sulfonamide Allergy Unknown Nausea Verified 02/23/24 09:21 Antibiotics) (SULFA (SULFONAMIDE ANTIBIOTICS)) Assessment and Plan *Assessment and plan (1) Sacroiliitis: Status: Acute Category: Medical Code(s): M46.1 - Sacroiliitis, not elsewhere classified (2) Greater trochanteric bursitis of right hip: Status: Acute Category: Medical Code(s): M70.61 - Trochanteric bursitis, right hip Plan Patient is experiencing worsening pain along the low back right-sided and right hip. They did have limited range of motion of the lumbar spine along with point tenderness along right SI joint and right greater compared bursa and a positive right Lissette's, Lianne's, Gaenslen's, compression and distraction exam. I did discuss with the patient that I do believe they would benefit from right greater trochanteric bursa injection and right SI injections. Risk and benefits were discussed with the patient and they would like to proceed forward with this option. Patient has tried and failed conservative therapy including continued at home stretching exercise for longer than 12 weeks. Patient had her first diagnostic SI injections in February that did provide 90% improvement. We will submit for her second diagnostic SI injections only on the right side with less than 1 mL of solution to be injected. Patient has had this pain for longer than 3 months. Patient will be scheduled for right SI and right greater trochanteric bursa injections under fluoroscopy. I will also send in a 2-week dose of baclofen 5 mg 3 times daily as needed. Patient has been instructed to contact the clinic with any concerns before the next appointment. Dr. Ruff has reviewed this note and agrees with this plan of care. This note was dictated using voice recognition software and make contain errors or omissions. All injections are used with Lidocaine or Bupivacaine and Depo Medrol. Patient has been instructed to contact the clinic with any concerns before the next appointment. Dr. Ruff has reviewed this note and agrees with this plan of care. This note was dictated using voice recognition software and make contain errors or omissions. All injections are used with Lidocaine, Bupivacaine and Depo Medrol. Occasionally urine drug screen is needed to verify patient's compliance with our office pain contract. This is ordered based off specific treatments related to chronic pain with the potential to abuse certain medications.
[2024-04-21 15:27] VITALS: BP 120/74; PULSE 95; RESP 18; O2SAT 94; BMI 39.6
== END 2024-04-21 23:59 | disposition home or self-care (01) ==
PROVIDERS: PCP Nurse Practitioner; Visit Provider Nurse Practitioner Family
DX: M46.1 Sacroiliitis, not elsewhere classified (principal); M70.61 Trochanteric bursitis, right hip; Z73.89 Other problems related to life management difficulty
CPT/HCPCS: 99212; G0463

== ENCOUNTER 2024-05-17 14:21 | Day surgery (SDC) | payer MEDICARE, MEDICAID, SELFPAY ==
[2024-05-17 14:39] VITALS: BP 109/71; PULSE 68; RESP 18; O2SAT 96; BMI 39.6
--- NOTE | 2024-05-17 14:57 | P.PCN_ITS ---
Procedure Date: 05/17/24 Time: 14:50 Anesthesiologist:: Lars Sharma CRNA Complications:: None Pre-procedure Diagnosis:: Right trochanteric bursitis. Right sacroiliitis. Post-procedure Diagnosis:: Same. Indications for Procedure:: Patient is a very pleasant 53-year-old female comes our clinic today for right sacroiliac joint injection of cortisone local anesthetic. Also, right greater trochanteric bursa injection. She describes right low lumbar back pain off the midline and right posterior hip pain. Right lateral hip pain. She is having difficulty transitioning from sitting to standing. Difficulty lying on her right side due to the right lateral hip pain. She rates her pain 8/10. Procedure Details:: Procedure: Right sacroliliac joint injection under fluoroscopy Informed consent was obtained and the risk and benefits of the procedure were explained to the patient.~ The patient was taken to the procedure room and noninvasive monitors were placed including noninvasive blood pressure cuff and pulse oximeter.~ The patient was placed prone on the procedure table.~ The~ right hip was cleansed using Betadine as a cleansing solution.~ C-arm fluorosocpy was used to view the right SI joint.~ The skin and subcutaneous tissues were anesthetized using Lidocaine 1.5% and a 25-gauge needle.~ After this, a 22-gauge spinal needle was inserted under fluoroscopic guidance into the inferior aspect of the right SI joint.~ Omnipaque dye was injected and a good spread was seen throughout the joint.~ After this, approximately 5 mL of bupivacaine 0.25% and Depo-Medrol 40 mg was incrementally injected into the sacroiliac joint.~ The patient tolerated the procedure well with no complications.~ The patient was observed in the Pain Clinic, then discharged home neurologically intact.~ Procedure: Right trochanteric bursa injection under fluoroscopy We then moved to the right trochanteric bursa.~ C-arm fluoroscopy was used to view the left greater trochanter.~ The skin and subcutaneous tissues overlying the right greater trochanter were anesthetized using lidocaine, 1.5% and a 25- gauge needle.~ After this, a 22-gauge spinal needle was inserted and advanced until it contacted the right greater trochanter.~ Dye was injected and good spread was seen throughout the right trochanteric bursa. After this, approximately 5 mL of bupivacaine, 0.25% and Depo-Medrol, 40 mg was incrementally injected into the right right trochanteric bursa.~ The patient tolerated the procedure well with no complications. Plan and Disposition:: Patient was discharged without incident.
[2024-05-17 14:58] VITALS: BP 109/61; PULSE 60; RESP 18; O2SAT 98
[2024-05-17 15:00] VITALS: BP 109/71; PULSE 68; RESP 18; O2SAT 96
[2024-05-17] MEDS: LIDOCAINE 1% 5ML PF VIAL 5 ML (15:00)
[2024-05-17 15:01] VITALS: BP 109/71; PULSE 68; RESP 18; O2SAT 96
== END 2024-05-17 14:58 | disposition home or self-care (01) ==
PROVIDERS: PCP Nurse Practitioner; Visit Provider Nurse Anesthetist, Certified Registered
DX: M46.1 Sacroiliitis, not elsewhere classified (principal); M70.61 Trochanteric bursitis, right hip
CPT/HCPCS: 20610; 27096; 77002; G0260; J1010

== ENCOUNTER 2024-05-30 11:00 | Outpatient (POV) | payer MEDICARE, MEDICAID, SELFPAY ==
--- NOTE | 2024-05-30 11:53 | EXP.PAIN.SOA ---
[facility] Disclaimer: The information contained in this section may have been updated after the patient was seen, as this information can be updated by other users. Medical History Depression Seizures Migraine Diabetes mellitus, type 2 COPD (chronic obstructive pulmonary disease) Hyperlipidemia Hypertension Surgical History History of carpal tunnel surgery History of hysterectomy History of section History of cholecystectomy History of appendectomy Family History Other No significant family history Social History Smoking Status: Never smoker years smoked: 20 second hand exposure: Yes alcohol intake: never substance use type: denies use current occupational status: unemployed Travel in the last 8 weeks: None household members: spouse housing: house current occupational exposures/hazards: No caffeine: Yes PM Subjective & Objective Subjective Subjective:: Patient is a pleasant 53-year-old female who presents today for follow-up of right SI injection on 05/17/2024. Today she rates her pain a 9 out of 10. She denies any new trauma or injury. She does state that her pain is still all along the right side and really did not feel like this injection did as well. Patient did previously have SI injection in the past and it did provide significant relief however this time she states it felt different. Patient does state that it is worse with certain positions such as bending or twisting. She does state the pain stays there at her back and denies any radiating symptoms into her legs. She does state the pain is interfering with her ability perform activities of daily living such as cooking and cleaning. Patient was given a 2-week dose of baclofen 5 mg 3 times a day however she felt like this did not seem to make much of a difference. Her Juan C has been reviewed and is appropriate. Review of Systems: General: No recent weight changes, no fever, no sleep disturbances Respiratory: No cough, no shortness of air, no recurring pulmonary infections Cardiovascular/peripheral vascular: No chest pain, no palpitations, no edema, no shortness of breath Gastrointestinal: No new onset incontinence, normal bowel movements reported Genitourinary: No new onset incontinence Musculoskeletal: Right-sided low back pain, hip pain Psychiatric: [Normal mood/affect] Neurological: [Denies weakness in extremities], [denies balance issues] Pain at rest (0-10 scale): 9 Objective Objective:: Physical Exam: General: Alert and oriented x3, no acute distress, pleasant and cooperative Lungs: Respirations even and unlabored, symmetrical chest expansion Eyes: PERRL Musculoskeletal: Flexion and extension of lumbar [spine] somewhat guarded secondary to pain, [antalgic gait noted] positive Kemps test Neurological: Speech clear, no gross sensory deficit Has patient had previous pain injection?: Yes Percent improvement in pain since last injection: Minimal Conservative treatment options previously tried: Home exercise plan Length of treatment: Longer than 12-week Meds Home Medications and Allergies Home Medications ?Medication ?Instructions ?Recorded ?Confirmed ?Type gabapentin 100 mg capsule 100 mg PO TID #0 caps 03/31/22 05/17/24 Rx sertraline 100 mg tablet 50 mg PO BID Depression 12/28/23 05/17/24 History estradiol 0.01% (0.1 mg/gram) See Rx Instructions vaginal 01/04/24 05/17/24 Rx vaginal cream .COMPLEX #42.5 grams tamsulosin 0.4 mg capsule (Flomax) 0.4 mg PO DAILY #30 caps 01/04/24 05/17/24 Rx baclofen 5 mg tablet 5 mg PO TID #42 tabs 04/21/24 05/17/24 Rx New Prescriptions to Start Prescriptions: Allergies Allergy/AdvReac Type Severity Reaction Status Date / Time codeine (CODEINE) Allergy Unknown Nausea Verified 05/17/24 14:40 Sulfa (Sulfonamide Allergy Unknown Nausea Verified 05/17/24 14:40 Antibiotics) (SULFA (SULFONAMIDE ANTIBIOTICS)) Assessment and Plan *Assessment and plan (1) Lumbar spondylosis: Status: Acute Category: Medical Code(s): M47.816 - Spondylosis without myelopathy or radiculopathy, lumbar region Plan Patient is experiencing significant pain in her low back that is worse with bending, twisting or lifting. Patient did have limited range of motion of her lumbar spine with a positive Kemps test during today's visit. I did discuss with the patient that I do believe she would benefit from a lumbar medial branch block. Risk and benefits were discussed with the patient and she would like to proceed forward with this plan of care. Patient has tried and failed conservative therapy including oral medications, heat and ice, topicals, at home stretching exercise for longer than 12 weeks. Patient has been experiencing chronic low back pain for years. Patient was counseled that if she does get significant relief with her first lumbar medial branch block that we will plan on repeating it with the plan to progress forward to a lumbar RFA at a later date. Patient agrees with this plan of care. Patient will be scheduled for her first diagnostic lumbar medial branch block bilaterally L4-L5 and L5-S1 under fluoroscopy. I will also send in a prescription of methocarbamol 500 mg 3 times daily as needed. Patient agrees with this plan of care. Patient has been instructed to contact the clinic with any concerns before the next appointment. Dr. Ruff has reviewed this note and agrees with this plan of care. This note was dictated using voice recognition software and make contain errors or omissions. All injections are used with Lidocaine, Bupivacaine and Depo Medrol. Occasionally urine drug screen is needed to verify patient's compliance with our office pain contract. This is ordered based off specific treatments related to chronic pain with the potential to abuse certain medications.
[2024-05-30 12:10] VITALS: BP 121/69; PULSE 82; RESP 14; O2SAT 97; BMI 37.6
== END 2024-05-30 23:59 | disposition home or self-care (01) ==
PROVIDERS: PCP Nurse Practitioner Family; Visit Provider Nurse Practitioner Family
DX: M47.816 Spondylosis without myelopathy or radiculopathy, lumbar region (principal); Z73.89 Other problems related to life management difficulty
CPT/HCPCS: 99212; G0463

== ENCOUNTER 2024-06-02 10:59 | Outpatient (CLI) | payer MEDICARE, MEDICAID, SELFPAY ==
--- NOTE | 2024-06-02 11:03 | MM_ITS ---
PROCEDURE INFORMATION: Exam: Bilateral Screening 3D Mammography Exam date and time: 06/02/2024 11:15 AM Age: 53 years old Clinical indication: Screening examination TECHNIQUE: Imaging protocol: Bilateral Screening tomosynthesis and 2D mammography including computer-aided detection (CAD) when performed. COMPARISON: 1. MG DMSB DIG MAMM-SCREEN LIAT 05/17/2015 3:42 PM 2. MG DIGMAMMDX MAMMOGRAM DX-RECEIVING ROOM CLERK N/C 10/20/2008 3:58 PM FINDINGS: MAMMOGRAPHY: Breast composition: There are scattered areas of fibroglandular density. Mass: No suspicious masses. Architectural distortion: None. Calcifications: No suspicious calcifications. Asymmetric density: None. Skin thickening: None. Axillary adenopathy: None. IMPRESSION: No mammographic evidence of malignancy. Annual screening is recommended unless otherwise clinically indicated. ASSESSMENT: BI-RADS Category 1: Negative.
== END 2024-06-02 23:59 | disposition home or self-care (01) ==
LOC: RAD 11:00
PROVIDERS: PCP Nurse Practitioner; Visit Provider Nurse Practitioner
DX: Z12.31 Encounter for screening mammogram for malignant neoplasm of breast (principal)
CPT/HCPCS: 77063; 77067

== ENCOUNTER 2024-06-27 21:51 | Emergency (ER) | payer MEDICARE, MEDICAID, SELFPAY ==
[2024-06-27 22:15] VITALS: BP 151/73; PULSE 74; RESP 17; TEMP 37; O2SAT 99; BMI 36.9
--- NOTE | 2024-06-27 22:46 | XR_ITS ---
PROCEDURE INFORMATION: Exam: XR Chest Exam date and time: 06/27/2024 10:40 PM Age: 54 years old Clinical indication: Pain; Chest pressure; Additional info: Chest pain TECHNIQUE: Imaging protocol: Radiologic exam of the chest. Views: 2 views. COMPARISON: CR XR CHEST PORTABLE 11/15/2023 9:21 PM FINDINGS: Lungs: Low lung volumes. No consolidation. Pleural spaces: No pleural effusion. No pneumothorax. Heart/Mediastinum: No cardiomegaly. Bones/joints: No acute findings. IMPRESSION: No acute findings.
[2024-06-27 22:51] LABS: Coronavirus 19, PCR Not Detected (NotDetected); Influenza A, PCR Not Detected (NotDetected); Influenza B, PCR Not Detected (NotDetected)
[2024-06-27 23:17] LABS: Lactate Venous 1.3 mmol/L (0.4-2.0); VBG Base Excess -0.1 mmol/L (-2.4-2.3); VBG HCO3 25.6 mmol/L (23-30); VBG Oxygen Saturation 82.9 % (50-70); VBG PCO2 48.3 mmol/L (35-51); VBG PH 7.34 mmol/L (7.31-7.41); VBG PO2 46.1 mmol/L (28-40); VBG Total CO2 27.1 mmol/L (23-27)
[2024-06-27 23:22] LABS: Albumin Level 4.5 g/dl (3.5-5.0); Chloride 108 mmol/L (98-107); Sodium 141 mmol/L (136-145)
[2024-06-27 23:23] LABS: Potassium 3.4 mmoL/L (3.5-5.1)
[2024-06-27 23:25] LABS: Alanine Aminotransferase 19 U/L (12-78); Anion Gap 9.4 mEq/L (5-15); Aspartate Amino Transferase 25 U/L (14-36); Basophils # 0.1 K/mm3 (0-0.2); Basophils % 0.6 % (0.1-2.0); Blood Urea Nitrogen 17 mg/dl (7-17); Carbon Dioxide 27 mmol/L (22.0-30.0); Creatinine Clearance Estimated 74 mL/min (50-200); Eosinophils # 0.1 Kmm3 (0.0-0.4); Eosinophils % 1.6 % (0.1-12.0); Estimated Glomerular Filt Rate 52 ml/min (>60); GFR (African American) 62 ML/MIN (>60); Hemoglobin 14.1 g/dL (12.2-16.2); Immature Granulocytes # 0.02 10^3uL; Immature Granulocytes % 0.2 %; Lymphocytes # 3.3 K/mm3 (0.7-4.5); Mean Corpuscular HGB Conc 32.8 g/dL (31.8-35.4); Mean Corpuscular Volume 88.3 fl (81-99); Mean Platelet Volume 9.6 fl (7.4-10.4); Monocytes # 0.5 K/mm3 (0.1-1.0); Monocytes % 5.5 % (1.7-9.3); Neutrophils # 4.3 K/mm3 (1.8-7.8); Neutrophils % 52.1 % (37.0-80.0); Nucleated Red Blood Cells # 0 10^3/uL; Nucleated Red Blood Cells % 0 %; Platelet Count 227 K/mm3 (142-424); Red Blood Count 4.87 M/mm3 (4.20-5.40); Red Cell Distribution Width 13.8 % (11.5-17.5); Red Cell Distribution Width-SD 44.8 fL; White Blood Count 8.3 K/mm3 (4.8-10.8)
[2024-06-27 23:26] LABS: Albumin/Globulin Ratio 1.3 (1.1-1.8); Alkaline Phosphatase 91 U/L (38-126); Bilirubin,Total 0.4 mg/dl (0.2-1.3); Calcium 9.9 mg/dl (8.4-10.2); Globulin 3.4 g/dL (1.3-3.2); Glucose 101 mg/dl (74-100); Magnesium 2.1 mg/dl (1.6-2.3); Total Protein,Serum 7.9 g/dl (6.3-8.2)
--- NOTE | 2024-06-27 23:50 | ED_ITS ---
Discharge Plan Disposition Patient Disposition: Home, Self-Care Condition: Good Prescriptions Prescriptions: New cefdinir 300 mg capsule 300 mg PO BID 5 Days Qty: 10 0RF azithromycin 250 mg tablet See Rx Instructions .ROUTE .COMPLEX Qty: 6 0RF Rx Instructions: For 250 mg dose pack: take 500 mg today (day 1), then 250 mg for 4 days (days 2-5) prednisone 20 mg tablet 40 mg PO DAILY 3 Days Qty: 6 0RF No Action tamsulosin [Flomax] 0.4 mg capsule 0.4 mg PO DAILY Qty: 30 3RF sertraline 100 mg tablet 50 mg PO BID methocarbamol 500 mg tablet 500 mg PO TID Qty: 90 0RF gabapentin 100 mg capsule 300 mg PO TID tramadol 50 mg tablet 50 mg PO DAILY PRN (Reason: Pain) Patient Comments: TAKE ONE TABLET BY MOUTH EVERY 8 HOURS Referrals Follow up/Referrals: Maria Del Carmen Rivera APRN [Primary Care Provider] - See instructions Activity Restrictions/Add. Instructions Additional Instructions/Restrictions: Your evaluated in the ER and are appropriate for discharge at this time. Take the prescribed cefdinir and azithromycin antibiotics as directed, do not skip doses, do not stop taking them early. Take the prescribed prednisone as directed, as discussed this could make your sugars more uncontrolled so please eat a healthy diet and monitor them closely while on this medication. Use the provided albuterol inhaler 2 puffs every 6 hours if needed for shortness of breath. Take Tylenol and ibuprofen if needed for headache or body aches, do not exceed the recommended dose on the bottle. Drink plenty of fluids to avoid side effects from these medications. Continue your home medications as previously prescribed. Make an appointment with your primary care doctor for reevaluation in 2 to 3 days. Return to the ER with any new, worsening, or otherwise concerning symptoms Clinical Impressions Clinical Impression: COPD exacerbation, Headache, Viral syndrome Print Language Print Language: Turkish Discharge ED Provider: Luis Carlos Cardoza General Adult HPI General Chief complaint: Headache Stated complaint: Ear Headache Congestion Time Seen by Provider: 06/27/24 22:41 Mode of Arrival: Ambulatory Source of Information: Patient Description of Symptoms (Recalled from ER Triage Doc. by RN): She reports a headache x3 days with pain 10/10. She states her right ear feels clogged. She also reports SOA with a productive cough with yellowish green sputum that she states is sometimes purple. She reports having COPD, emphysema, and type II diabetes that she reports his controlled and not on any medications for. States she took acetaminophen 1000mg at 1800 and ibuprofen 400mg at 1500. History of Present Illness HPI narrative: 54-year-old female presents to the ER with complaint of 3 days of headache, ear pain, productive cough, nasal congestion. Patient reports a history of COPD, emphysema, type 2 diabetes that is reportedly controlled and no longer on any medications. She states she took Tylenol and ibuprofen today for discomfort without significant relief. She denies any chest pain or difficulty breathing. She denies any fevers or chills. No vomiting or diarrhea. No other associated symptoms. Related Data Home Medications ?Medication ?Instructions ?Recorded ?Confirmed sertraline 100 mg tablet 50 mg PO BID Depression 12/28/23 06/27/24 gabapentin 100 mg capsule 300 mg PO TID 06/27/24 06/27/24 tramadol 50 mg tablet 50 mg PO DAILY PRN Pain 06/27/24 06/27/24 Previous Rx's ?Medication ?Instructions ?Recorded tamsulosin 0.4 mg capsule (Flomax) 0.4 mg PO DAILY #30 caps 01/04/24 methocarbamol 500 mg tablet 500 mg PO TID #90 tabs 05/30/24 azithromycin 250 mg tablet See Rx Instructions PO .COMPLEX #6 06/27/24 tabs cefdinir 300 mg capsule 300 mg PO BID 5 days #10 caps 06/27/24 prednisone 20 mg tablet 40 mg (2 x 20 mg) PO DAILY 3 days 06/27/24 #6 tabs Allergies Allergy/AdvReac Type Severity Reaction Status Date / Time codeine (CODEINE) Allergy Unknown Nausea Verified 06/27/24 22:20 Sulfa (Sulfonamide Allergy Unknown Nausea Verified 06/27/24 22:20 Antibiotics) (SULFA (SULFONAMIDE ANTIBIOTICS)) [facility] Disclaimer: The information contained in this section may have been updated after the patient was seen, as this information can be updated by other users. Medical History Depression Seizures Migraine Diabetes mellitus, type 2 COPD (chronic obstructive pulmonary disease) Hyperlipidemia Hypertension Surgical History History of carpal tunnel surgery History of hysterectomy History of section History of cholecystectomy History of appendectomy Family History Other No significant family history Social History Smoking Status: Current every day smoker tobacco type: cigarettes packs per day: 1 years smoked: 20 second hand exposure: Yes alcohol intake: never substance use type: denies use current occupational status: other Travel in the last 8 weeks?: None household members: spouse housing: house current occupational exposures/hazards: No caffeine: Yes Have you lived/traveled outside [place] in past 30 days?: No Contact w/someone who lives/traveled outside US past 30 days?: No Exposure to someone with infectious disease in past 14 days?: No Do you have a fever (greater than 100.4 F or 38 C)?: No Have you tested positive for COVID-19?: No Exposed to someone with COVID-19 in past 14 days?: No Do you have a sore throat?: No Do you have a cough?: No Do you have any weakness?: No Do you have any diarrhea?: No Are you experiencing any unusual bleeding?: No Do you have any muscle aches/pain?: No Do you have any abdominal pain?: No Are you experiencing loss of taste or smell?: No Other Medical History Have you received the Flu Vaccine for this season: Yes Have you received the Pneumonia Vaccine: Yes ROS Obtained: Yes Systems reviewed as appropriate & no additional complaints except as documented Per HPI Physical Exam General General appearance: alert and in no apparent distress Head Head exam: atraumatic and normocephalic Eye Eye exam: Present PERRL and EOMI ENT ENT exam: Present normal oropharynx and mucous membranes moist; Absent TM's normal bilaterally (Mildly erythematous bilateral tympanic membranes, nonpurulent effusion) Neck Neck exam: Present normal inspection and full ROM; Absent lymphadenopathy Chest Chest inspection: Present symmetric chest wall rise Respiratory Respiratory exam: Present normal lung sounds bilaterally and other (No rhonchi or rales); Absent respiratory distress, wheezes or stridor Cardiovascular Cardiovascular exam: Present regular rate and normal rhythm Abdominal Exam Abdominal exam: Present soft; Absent distention or tenderness Extremities Exam Extremities exam: Present full ROM; Absent edema Neurological Exam Neurological exam: Present alert and oriented X3; Absent motor sensory deficit Psychiatric Psychiatric exam: Present normal affect and normal mood Skin Skin exam: Present warm and dry Medical Decision Making Medical Records Medical records reviewed: Yes I reviewed the patient's medical records. Screening: Per USPSTF and CDC recommendations, given the prevalence of disease in our region, it is our hospital?s policy to screen for HIV and viral Hepatitis for all patients aged 18 and over and those with ongoing risk factors. Juan C Inquiry Pt receiving controlled substance: No Vital Signs: 06/27/24 22:15 06/28/24 00:07 06/28/24 00:08 Temperature 98.6 F 98.6 F 98.6 F Temperature Source Oral Oral Oral Pulse Rate 74 74 Pulse Rate [Right Brachial] 74 Respiratory Rate 17 16 18 Blood Pressure 148/70 H 148/70 H Blood Pressure [Right Arm] 151/73 H Blood Pressure Mean [Right Arm] 99 Blood Pressure Source Automatic Cuff Automatic Cuff Blood Pressure Source [Right Arm] Automatic Cuff Blood Pressure Position Sitting Blood Pressure Position [Right Arm] Sitting 02 Sat by Pulse Oximetry 99 98 Oxygen Delivery Method Room Air Room Air Room Air Lab Data Lab Results 06/27/24 22:44: SARS-CoV-2 (PCR) Not detected, Influenza A Untype (PCR) Not detected, Influenza Type B (PCR) Not detected 06/27/24 23:03: WBC 8.3, RBC 4.87, Hgb 14.1, Hct 43.0, MCV 88.3, MCH 29.0, MCHC 32.8, RDW 13.8, Plt Count 227, MPV 9.6, Neut % (Auto) 52.1, Lymph % (Auto) 40.0, [place] % (Auto) 5.5, Eos % (Auto) 1.6, Baso % (Auto) 0.6, Neut # (Auto) 4.3, Lymph # (Auto) 3.3, [place] # (Auto) 0.5, Eos # (Auto) 0.1, Baso # (Auto) 0.1, VBG pH 7.34, VBG pCO2 48.3, VBG pO2 46.1 H, VBG HCO3 25.6, VBG Total CO2 27.1 H, VBG O2 Saturation 82.9 H, VBG Base Excess -0.1, VBG Lactic Acid 1.3, Sodium 141, P otassium 3.4 L, Chloride 108 H, Carbon Dioxide 27, Anion Gap 9.4, BUN 17, C reatinine 1.10 H, Estimated Creat Clear 74, Estimated GFR 52 L, Est GFR ( Amer) 62, Glucose 101 H, Calcium 9.9, Magnesium 2.1, Total Bilirubin 0.4, AST 25, ALT 19, Alkaline Phosphatase 91, Total Protein 7.9, Albumin 4.5, Globulin 3.4 H, Albumin/Globulin Ratio 1.3, HCV Ab DAWSON w/Rflx PCR Qn Negative, HIV Ag/Ab Combo Qual Negative 06/27/24 23:03 06/27/24 23:03 Orders (Tests/Meds): ED MEDICATIONS Discontinued Medications Generic Name Dose Route Start Last Admin Trade Name Freq PRN Reason Stop Dose Admin Acetaminophen 1,000 mg 06/27/24 23:08 06/27/24 23:53 Acetaminophen 500mg Tab PO 06/27/24 23:09 1,000 mg ONCE ONE Administration Albuterol Sulfate 2 puff 06/27/24 23:45 06/27/24 23:54 Albuterol-Hfa 90mcg/Puff Inhaler 8gm IH 06/27/24 23:46 2 puff ONCE ONE Administration Cefdinir 300 mg 06/28/24 09:00 Cefdinir 300mg Capsule PO 07/08/24 08:59 DAILY REBA Cefdinir 300 mg 06/28/24 00:01 06/28/24 00:02 Cefdinir 300mg Capsule PO 06/28/24 00:02 300 mg ONCE ONE Administration Metoclopramide HCl 10 mg 06/27/24 23:08 06/27/24 23:54 Metoclopramide 10mg Tablet PO 06/27/24 23:09 10 mg ONCE ONE Administration Miscellaneous 1 unit 06/27/24 23:45 06/27/24 23:55 Aerochamber/Optihaler MC 06/27/24 23:46 1 unit ONCE ONE Administration Prednisone 40 mg 06/27/24 23:45 06/27/24 23:53 Prednisone 20mg Tab PO 06/27/24 23:46 40 mg ONCE ONE Administration ORDERS Category Date Time Status Chest XR 2 view (NOT portable) [XR chest 2V] Stat Exams 06/27/24 22:46 Completed Complete Blood Count Auto Diff Stat Lab 06/27/24 23:03 Completed Comprehensive Metabolic Panel Stat Lab 06/27/24 23:03 Completed HIV Combo Stat Lab 06/27/24 23:03 Completed Hepatitis C Ab Qual. W/ RFX Stat Lab 06/27/24 23:03 Completed Magnesium Stat Lab 06/27/24 23:03 Completed Rapid PCR Covid and Flu A/B Stat Lab 06/27/24 22:44 Completed VBG [Venous Blood Gas] Stat RT 06/27/24 23:03 Completed Medical Decision Narrative: In summary, this 54-year-old female with comorbidities described in the HPI which may not medical therapy presents to the emergency department today with headache, cough, congestion, right ear pain, increased productive sputum. On initial evaluation patient is hemodynamically stable, afebrile, lungs clear bilaterally, GCS 15, no neurologic deficits, no red flag signs of headache, abdominal exam benign, remainder of exam benign. Differential diagnosis includes but is not limited to viral syndrome, COPD exacerbation, pneumonia, tension headache, viral headache, I considered otitis media but have no evidence of this on exam, seasonal allergies, among others. Based on these concerns, I ordered basic serum labs, chest x-ray, VBG. Patient received Tylenol, Toradol, Reglan for headache treatment. Labs personally reviewed demonstrate normal CBC, VBG with normal pH, no hypercarbia, normal VBG lactic, CMP with creatinine 1.1 which is similar to prior, patient is tolerating oral intake, magnesium normal at 2.1, remainder of labs are reassuring. COVID and flu negative. After reviewing labs, patient was treated with cefdinir, prednisone, albuterol MDI for likely mild COPD exacerbation in the setting of likely viral syndrome. XR personally interpreted demonstrates no large lobar infiltrate or pneumothorax, see radiology read for final interpretation. On reassessment patient continues to be stable and is appropriate for discharge at this time. Albuterol inhaler was provided to her for home use. Cefdinir and azithromycin dual therapy was prescribed to the patient for COPD exacerbation empiric antibiotic coverage. Short course prednisone also prescribed. Patient was instructed to closely monitor her blood sugars given her history of diabetes which reportedly is resolved. Viral swab is pending at this time but will not change agent given her duration of symptoms. Patient was given instructions on continued symptomatic monitoring and management, follow-up instructions, and strict return precautions for the ER. She indicated understanding patient was discharged in stable condition. Critical Care Critical Care Time Critical Care Time: No
[2024-06-27] MEDS: ACETAMINOPHEN 500MG TAB 1000 MG PO (23:53)
[2024-06-27] MEDS: predniSONE 20MG TAB 40 MG PO (23:53)
[2024-06-27] MEDS: ALBUTEROL-HFA 90MCG/PUFF INHALER 8GM 2 PUFF IH (23:54)
[2024-06-27] MEDS: METOCLOPRAMIDE 10MG TABLET 10 MG PO (23:54)
[2024-06-27] MEDS: AEROCHAMBER/OPTIHALER 1 UNIT MC (23:55)
[2024-06-28] MEDS: CEFDINIR 300MG CAPSULE 300 MG PO (00:02)
[2024-06-28 00:07] VITALS: BP 148/70; PULSE 74; RESP 16; TEMP 37; O2SAT 98
[2024-06-28 00:08] VITALS: BP 148/70; PULSE 74; RESP 18; TEMP 37; O2SAT 100
[2024-06-28 00:34] LABS: HIV Combo NEGATIVE (Negative)
[2024-06-28 00:42] LABS: Hepatitis C Ab Qual. W/ RFX NEGATIVE (Negative)
== END 2024-06-28 00:09 | disposition home or self-care (01) ==
PROVIDERS: Emergency Medicine; Emergency Provider Emergency Medicine; PCP Nurse Practitioner
DX: J44.1 Chronic obstructive pulmonary disease with (acute) exacerbation (principal); H92.03 Otalgia, bilateral; R09.81 Nasal congestion; R51.9 Headache, unspecified; F17.210 Nicotine dependence, cigarettes, uncomplicated; Z86.39 Personal history of other endocrine, nutritional and metabolic disease
CPT/HCPCS: 71046; 80053; 82803; 83735; 85025; 86803; 87389; 87636; 99284

== ENCOUNTER 2024-06-28 11:40 | Day surgery (SDC) | payer MEDICARE, MEDICAID, SELFPAY ==
[2024-06-28 11:50] VITALS: BP 101/49; PULSE 71; RESP 16; TEMP 36.8; O2SAT 95; BMI 37.6
--- NOTE | 2024-06-28 11:56 | EXP.PAIN.PRO ---
Procedure Date: 06/28/24 Time: 11:55 Anesthesiologist:: Lars Sharma CRNA Complications:: None Pre-procedure Diagnosis:: Degenerative disc lumbar spine multilevels. Lumbar radiculopathy. Lumbar spondylosis. Multilevel lumbar facet arthropathy. Post-procedure Diagnosis:: Same. Indications for Procedure:: Patient is a pleasant 54-year-old female who comes our clinic today for ROUND ONE of right L4-5, L5-S1 medial branch blocks/facet injections. She describes right low lumbar back pain as constant, dull, aching. Patient is status post right sacroiliac joint injection to cortisone local anesthetic. This brought minimal to no relief in terms of her right low lumbar back pain as well as right posterior hip pain. We will trial a right L4-5, L5-S1 facet block today. Procedure Details:: Details of the procedure explained to the patient. The patient was taken procedure room placed in the prone position with fluoroscopy table. The area over the lumbar spine was cleaned using chlorhexidine as a cleansing solution. Using a 22-gauge 3 and half inch needle the right L4-5 facet joint was accessed with ease. After negative aspiration 1 cc of 1% lidocaine and 2 mg of dexamethasone was injected. At this time the needle was moved to the L5-S1 right facet joint the same medication was injected. Patient tolerated procedure without difficulty. No complications. Plan and Disposition:: Patient was discharged without incident.
[2024-06-28] MEDS: DEXAMETHASONE 10MG/ML 1ML VIAL 10 MG (11:57)
[2024-06-28] MEDS: BUPIVACAINE 0.25% 10ML INJ 25 MG IJ (11:57)
[2024-06-28] MEDS: LIDOCAINE 1% 5ML PF VIAL 5 ML (11:57)
[2024-06-28 11:58] VITALS: BP 107/44; PULSE 56; RESP 18; O2SAT 96
[2024-06-28 11:59] VITALS: BP 107/44; PULSE 62; RESP 18; O2SAT 96
[2024-06-28 12:01] VITALS: BP 114/66; PULSE 67; RESP 16; O2SAT 96
== END 2024-06-28 12:01 | disposition home or self-care (01) ==
PROVIDERS: PCP Nurse Practitioner Family; Visit Provider Nurse Anesthetist, Certified Registered
DX: M47.816 Spondylosis without myelopathy or radiculopathy, lumbar region (principal); M51.369 Other intervertebral disc degeneration, lumbar region without mention of lumbar back pain or lower extremity pain
CPT/HCPCS: 64493; 64494; J1100

== ENCOUNTER 2024-07-05 08:59 | Day surgery (SDC) | payer MEDICARE, MEDICAID, SELFPAY ==
[2024-07-01 12:33] VITALS: BMI 36.6
[2024-07-05] MEDS: PHENYLEPHRINE 2.5% OPHTH SOLN 2ML OP ×3 (10:10→10:20)
[2024-07-05] MEDS: CYCLOPENTOLATE 2% OPHTH SOLN 2ML BOTTLE OP ×3 (10:10→10:20)
[2024-07-05] MEDS: TETRACAINE 0.5% OPTH SOL 15ML OP ×3 (10:10→10:20)
[2024-07-05 10:13] VITALS: BP 121/70; PULSE 59; RESP 20; TEMP 36.3; O2SAT 97
[2024-07-05 11:09] VITALS: BP 117/56; PULSE 44; RESP 16; TEMP 36.6; O2SAT 93
[2024-07-05] MEDS: MIDAZOLAM 2MG/2ML VIAL 1 MG IV (11:09)
[2024-07-05 11:14] VITALS: BP 93/51; PULSE 48; RESP 16; TEMP 36.6; O2SAT 94
[2024-07-05] MEDS: TOBRAMYCIN/DEX OPTH SUSP 2.5ML OP (11:18)
[2024-07-05] MEDS: TIMOLOL 0.5% OPTH SOLN 5ML OP (11:18)
[2024-07-05 11:19] VITALS: BP 105/54; PULSE 45; RESP 16; TEMP 36.6; O2SAT 94
[2024-07-05] MEDS: SODIUM CHLORIDE 0.9% 10ML FLUSH SYRINGE 10 ML IV (11:19)
[2024-07-05] MEDS: LIDOCAINE 1% PF 2ML AMPULE 2 ML IJ (11:19)
[2024-07-05 11:24] VITALS: BP 107/57; PULSE 43; RESP 16; TEMP 36.6; O2SAT 96
[2024-07-05 11:28] VITALS: BP 92/65; PULSE 70; RESP 16; TEMP 36.6; O2SAT 100
--- NOTE | 2024-07-05 12:54 | HMH.PROCNOTE ---
[facility] Procedure Note Date: 07/05/24 Time: 12:54 Procedure Note:: Preoperative Diagnosis: Cataract combined NS Cortical Complex [Right] Eye Postop diagnosis: same Operation: Microscopic phacoemulsification with intraocular lens implant [Right] Eye Specimen: None Blood Loss: None The patient was examined in the office with a complaint of poor vision in the [right] eye. The patient reports that this interferes with ADLs such as reading, watching TV and/or driving or the vision is like looking through a foggy haze and is very troubling. The patient was examined and found to have a visually significant cataract with best corrected vision of [20/400] by refraction and/or glare testing. Treatment options, risks and benefits were explained and the patient elected to have cataract surgery in an attempt to improve their vision. The patient had the eye anesthetized with topical tetracaine, the eye ways prepped and draped in the usual fashion for cataract surgery. A paracentesis and a temporal keratotomy were made. 0.2cc of 1% lidocaine PF was placed into the anterior chamber. And aqueous/viscoelastic exchange was done and a 360 degree capsulorexis was performed. Through hydrodissection and delineation with BSS on a cannula was done. The lens nucleus was phecoemulsified with CDE of [4.34]. Residual cortical material was removed using automated I&A The capsular bag was deepened with viscoelastica and a PCIOL was placed in the capsular bag with good centration and stability. Residual viscoelastic was removed using automated I&A. The keratotomy incision was hydrated with BSS on a cannula. The wound were checked and found to be water tight. IOP was checked digitally and adjusted as needed so as not to be too high. 1 drop of timolol 0.5%, ofloxacin, prednisolone acetate and ketorolac was instilled and eye shield taped over the eye. The patient was taken to recovery in good condition and will be seen postoperatively.
[2024-07-05 14:50] LABS: POC Glucose,Bedside 96 (70-110)
== END 2024-07-05 11:36 | disposition home or self-care (01) ==
PROVIDERS: PCP Nurse Practitioner; Visit Provider Ophthalmology
PROC: (CPT 66984; principal; 2024-07-05 11:30)
DX: H25.011 Cortical age-related cataract, right eye (principal); J44.9 Chronic obstructive pulmonary disease, unspecified; E11.9 Type 2 diabetes mellitus without complications; E78.5 Hyperlipidemia, unspecified; I10 Essential (primary) hypertension; R56.9 Unspecified convulsions; F17.210 Nicotine dependence, cigarettes, uncomplicated; Z88.5 Allergy status to narcotic agent; Z88.2 Allergy status to sulfonamides; Z79.899 Other long term (current) drug therapy
CPT/HCPCS: 66984; 82962; J2250; V2632

== ENCOUNTER 2024-07-19 06:13 | Day surgery (SDC) | payer MEDICARE, MEDICAID, SELFPAY ==
[2024-07-19] MEDS: TETRACAINE 0.5% OPTH SOL 15ML OP ×3 (07:01→07:02)
[2024-07-19] MEDS: CYCLOPENTOLATE 2% OPHTH SOLN 2ML BOTTLE OP ×3 (07:01→07:02)
[2024-07-19] MEDS: PHENYLEPHRINE 2.5% OPHTH SOLN 2ML OP ×3 (07:01→07:02)
[2024-07-19 07:04] VITALS: BP 101/49; PULSE 51; RESP 18; TEMP 36.1; O2SAT 97; BMI 36.6
[2024-07-19 07:09] LABS: POC Glucose,Bedside 103 (70-110)
[2024-07-19 07:43] VITALS: BP 131/62; PULSE 46; RESP 16; TEMP 36.6; O2SAT 100
[2024-07-19] MEDS: SODIUM CHLORIDE 0.9% 10ML FLUSH SYRINGE 10 ML IV (07:43)
[2024-07-19] MEDS: MIDAZOLAM 2MG/2ML VIAL 1 MG IV (07:43)
[2024-07-19 07:48] VITALS: BP 122/63; PULSE 45; RESP 16; TEMP 36.6; O2SAT 93
[2024-07-19 07:53] VITALS: BP 118/69; PULSE 44; RESP 16; TEMP 36.6; O2SAT 94
[2024-07-19] MEDS: TIMOLOL 0.5% OPTH SOLN 5ML OP (07:53)
[2024-07-19] MEDS: LIDOCAINE 1% PF 2ML AMPULE 2 ML IJ (07:53)
[2024-07-19] MEDS: TOBRAMYCIN/DEX OPTH SUSP 2.5ML OP (07:53)
[2024-07-19 07:58] VITALS: BP 131/75; PULSE 45; RESP 16; TEMP 36.6; O2SAT 94
[2024-07-19 08:12] VITALS: BP 131/69; PULSE 60; RESP 16; TEMP 36.7; O2SAT 99
--- NOTE | 2024-07-19 10:30 | HMH.PROCNOTE ---
[facility] Procedure Note Date: 07/19/24 Time: 10:30 Procedure Note:: Preoperative Diagnosis: Cataract combined NS Cortical Complex [Left] Eye Postop diagnosis: same Operation: Microscopic phacoemulsification with intraocular lens implant [Left] Eye Specimen: None Blood Loss: None The patient was examined in the office with a complaint of poor vision in the [left] eye. The patient reports that this interferes with ADLs such as reading, watching TV and/or driving or the vision is like looking through a foggy haze and is very troubling. The patient was examined and found to have a visually significant cataract with best corrected vision of [20/400] by refraction and/or glare testing. Treatment options, risks and benefits were explained and the patient elected to have cataract surgery in an attempt to improve their vision. The patient had the eye anesthetized with topical tetracaine, the eye ways prepped and draped in the usual fashion for cataract surgery. A paracentesis and a temporal keratotomy were made. 0.2cc of 1% lidocaine PF was placed into the anterior chamber. And aqueous/viscoelastic exchange was done and a 360 degree capsulorexis was performed. Through hydrodissection and delineation with BSS on a cannula was done. The lens nucleus was phecoemulsified with CDE of [3.44]. Residual cortical material was removed using automated I&A The capsular bag was deepened with viscoelastica and a PCIOL was placed in the capsular bag with good centration and stability. Residual viscoelastic was removed using automated I&A. The keratotomy incision was hydrated with BSS on a cannula. The wound were checked and found to be water tight. IOP was checked digitally and adjusted as needed so as not to be too high. 1 drop of timolol 0.5%, ofloxacin, prednisolone acetate and ketorolac was instilled and eye shield taped over the eye. The patient was taken to recovery in good condition and will be seen postoperatively.
== END 2024-07-19 08:21 | disposition home or self-care (01) ==
PROVIDERS: PCP Nurse Practitioner; Visit Provider Ophthalmology
DX: E11.36 Type 2 diabetes mellitus with diabetic cataract (principal); H25.812 Combined forms of age-related cataract, left eye; F32.A Depression, unspecified; H91.90 Unspecified hearing loss, unspecified ear; F17.210 Nicotine dependence, cigarettes, uncomplicated; Z97.3 Presence of spectacles and contact lenses; Z88.5 Allergy status to narcotic agent; Z88.2 Allergy status to sulfonamides; Z79.899 Other long term (current) drug therapy; Z96.1 Presence of intraocular lens
CPT/HCPCS: 66984; 82962; J2250; V2632

== ENCOUNTER 2024-07-21 10:42 | Outpatient (POV) | payer MEDICARE, MEDICAID, SELFPAY ==
--- NOTE | 2024-07-21 11:15 | EXP.PAIN.SOA ---
[facility] Disclaimer: The information contained in this section may have been updated after the patient was seen, as this information can be updated by other users. Medical History Depression Seizures Migraine Diabetes mellitus, type 2 COPD (chronic obstructive pulmonary disease) Hyperlipidemia Hypertension Surgical History History of surgery History of carpal tunnel surgery History of hysterectomy History of section History of cholecystectomy History of appendectomy Family History Other Cancer Heart disease Hyperlipidemia Hypertension Social History Smoking Status: Current every day smoker tobacco type: cigarettes packs per day: 1 years smoked: 20 second hand exposure: Yes alcohol intake: never substance use type: denies use current occupational status: disabled Travel in the last 8 weeks?: None adopted: Yes household members: spouse housing: house current occupational exposures/hazards: No caffeine: Yes PM Subjective & Objective Subjective Subjective:: Patient is a pleasant 54-year-old female who presents today for follow-up of right lumbar medial branch block L4-L5 and L5-S1 on 06/28/2024. This was the patient's first injection. Patient does state that she had 80% relief that lasted a full 2 weeks. Patient states during that time she had a 0 out of 10 pain and did not even notice her overall back. Patient states that she felt like she had improved function and was able to do more. Patient does write however her pain today is 6 out of 10. She denies any new falls or injuries. Patient does state the pain has returned and is still worse with certain movements such as bending, twisting or lifting. Patient does state the pain is interfering with her ability perform activities of daily living such as cooking and cleaning. She does state that she would like to proceed forward with her repeat injection to get to the burning. Patient's Juan C has been reviewed and is appropriate. Patient is currently prescribed methocarbamol 500 mg 3 times a day as needed. Review of Systems: General: No recent weight changes, no fever, no sleep disturbances Respiratory: No cough, no shortness of air, no recurring pulmonary infections Cardiovascular/peripheral vascular: No chest pain, no palpitations, no edema, no shortness of breath Gastrointestinal: No new onset incontinence, normal bowel movements reported Genitourinary: No new onset incontinence Musculoskeletal: Right-sided low back pain Psychiatric: [Normal mood/affect] Neurological: [Denies weakness in extremities], [denies balance issues] Pain at rest (0-10 scale): 6 Objective Objective:: Physical Exam: General: Alert and oriented x3, no acute distress, pleasant and cooperative Lungs: Respirations even and unlabored, symmetrical chest expansion Eyes: PERRL Musculoskeletal: Flexion and extension of lumbar [spine] somewhat guarded secondary to pain, [antalgic gait noted] positive Kemps test Neurological: Speech clear, no gross sensory deficit Has patient had previous pain injection?: Yes Percent improvement in pain since last injection: 80% for 2 weeks Conservative treatment options previously tried: Home exercise plan Length of treatment: Longer than 12 weeks Meds Home Medications and Allergies Home Medications ?Medication ?Instructions ?Recorded ?Confirmed ?Type sertraline 100 mg tablet 50 mg PO BID Depression 12/28/23 07/19/24 History tamsulosin 0.4 mg capsule (Flomax) 0.4 mg PO DAILY #30 caps 01/04/24 07/19/24 Rx methocarbamol 500 mg tablet 500 mg PO TID #90 tabs 05/30/24 07/19/24 Rx gabapentin 100 mg capsule 300 mg PO TID 06/27/24 07/19/24 History tramadol 50 mg tablet 50 mg PO DAILY PRN Pain 06/27/24 07/19/24 History New Prescriptions to Start Prescriptions: Allergies Allergy/AdvReac Type Severity Reaction Status Date / Time codeine (CODEINE) Allergy Unknown Nausea Verified 07/19/24 07:03 Sulfa (Sulfonamide Allergy Unknown Nausea Verified 07/19/24 07:03 Antibiotics) (SULFA (SULFONAMIDE ANTIBIOTICS)) Assessment and Plan *Assessment and plan (1) Lumbar spondylosis: Status: Acute Category: Medical Code(s): M47.816 - Spondylosis without myelopathy or radiculopathy, lumbar region (2) Low back pain: Status: Acute Category: Medical Code(s): M54.50 - Low back pain, unspecified Plan Patient did have a successful first lumbar medial branch block and I did review with her regarding repeat lumbar block. Risk and benefits were discussed with patient and she would like to proceed forward with this plan of care. Patient did have limited range of motion of his lumbar spine during today's visit with a positive Kemps test. Patient was counseled if he does get significant improvement with this second lumbar block we will proceed forward with a lumbar RFA at a later date. Patient has continued at home stretching and exercise for longer than 12 weeks with no additional changes. Patient has had chronic back pain for longer than 6 months. Patient has failed oral medications, heat and ice, topicals. We will schedule him for the second lumbar medial branch block right sided L4-L5 and L5-S1 under fluoroscopy. Patient has been instructed to contact the clinic with any concerns before the next appointment. Dr. Ruff has reviewed this note and agrees with this plan of care. This note was dictated using voice recognition software and make contain errors or omissions. All injections are used with Lidocaine, Bupivacaine and dexamethasone unless diagnostic in which no steroids are used. Occasionally urine drug screen is needed to verify patient's compliance with our office pain contract. This is ordered based off specific treatments related to chronic pain with the potential to abuse certain medications.
[2024-07-21 12:48] VITALS: BP 119/54; PULSE 59; RESP 18; O2SAT 96; BMI 36.6
--- OUTSIDE RECORDS SUMMARY | 2024-07-21 12:57 | XMS_ITS ---
Author Organization Unknown TREATMENT PLAN Planned Care Start Date Provider Encounter for Check-up [id number] SHIRA Velasco
== END 2024-07-21 23:59 | disposition home or self-care (01) ==
LOC: SC.PAIN 10:43
PROVIDERS: PCP Nurse Practitioner; Visit Provider Nurse Practitioner Family
DX: M47.816 Spondylosis without myelopathy or radiculopathy, lumbar region (principal); Z98.890 Other specified postprocedural states; Z79.899 Other long term (current) drug therapy
CPT/HCPCS: 99212; G0463

== ENCOUNTER 2024-08-16 09:03 | Day surgery (SDC) | payer MEDICARE, MEDICAID, SELFPAY ==
[2024-08-16 09:00] VITALS: BP 115/60; PULSE 56; RESP 18; O2SAT 95; BMI 35.5
[2024-08-16 09:24] VITALS: BP 115/49; PULSE 52; PULSE 55; RESP 18; O2SAT 95
[2024-08-16] MEDS: LIDOCAINE 1% 5ML PF VIAL 5 ML (09:24)
[2024-08-16] MEDS: BUPIVACAINE 0.25% 10ML INJ 25 MG IJ (09:25)
[2024-08-16 09:35] VITALS: BP 128/60; PULSE 57; RESP 18; O2SAT 98
--- NOTE | 2024-08-16 09:36 | EXP.PAIN.PRO ---
Procedure Date: 08/16/24 Time: 09:15 Anesthesiologist:: Lars Sharma CRNA Complications:: None Pre-procedure Diagnosis:: Degenerative disc lumbar spine multilevels. Lumbar radiculopathy. Lumbar spondylosis. Multilevel lumbar facet arthropathy. Post-procedure Diagnosis:: Same. Indications for Procedure:: Patient is very pleasant 54-year-old female comes our clinic today for ROUND ONE diagnostic right L4-5, L5-S1 medial branch block/facet injection. Patient describes right low lumbar back pain as constant, dull, aching. She rates her pain 7/10. Patient describes difficulty with lumbar flexion, extension left and right rotation due to the low lumbar right back pain. Procedure Details:: Details of the procedure explained to the patient. The patient taken procedure room placed in the prone position. The over the right low lumbar area was cleansed using chlorhexidine as a cleansing solution. Using a 22-gauge 3 and half inch needle and fluoroscopy guidance the right L4-5 facet joint was accessed with ease. 1 cc of 1% lidocaine was injected. At this time the needle was positioned into the right L5-S1 facet joint. 1 cc of 1% lidocaine was injected. Patient tolerated procedure without difficulty. There are no complications. Plan and Disposition:: Patient was discharged without incident.
== END 2024-08-16 09:35 | disposition home or self-care (01) ==
PROVIDERS: PCP Nurse Practitioner; Visit Provider Nurse Anesthetist, Certified Registered
DX: M51.16 Intervertebral disc disorders with radiculopathy, lumbar region (principal); M47.26 Other spondylosis with radiculopathy, lumbar region; J44.9 Chronic obstructive pulmonary disease, unspecified; F32.A Depression, unspecified; E11.9 Type 2 diabetes mellitus without complications; I11.0 Hypertensive heart disease with heart failure; I50.22 Chronic systolic (congestive) heart failure; E78.5 Hyperlipidemia, unspecified; G40.909 Epilepsy, unspecified, not intractable, without status epilepticus; F17.210 Nicotine dependence, cigarettes, uncomplicated; Z88.5 Allergy status to narcotic agent; Z79.899 Other long term (current) drug therapy
CPT/HCPCS: 64493; 64494; J0665; J2003

== ENCOUNTER 2024-08-19 22:27 | Emergency (ER) | payer MEDICARE, MEDICAID, SELFPAY ==
[2024-08-19 22:36] VITALS: BP 143/90; PULSE 69; RESP 16; TEMP 36.7; O2SAT 99; BMI 35.5
[2024-08-19] MEDS: KETOROLAC 30MG/ML VIAL 15 MG IV (22:49)
--- NOTE | 2024-08-19 22:49 | ED_ITS ---
Discharge Plan Disposition Patient Disposition: Home, Self-Care Condition: Good Prescriptions Prescriptions: New enoxaparin [Lovenox] 80 mg/0.8 mL syringe 75 mg SQ Q12H 90 Days Qty: 135 0RF No Action tamsulosin [Flomax] 0.4 mg capsule 0.4 mg PO DAILY Qty: 30 3RF Referrals Follow up/Referrals: Maria Del Carmen Rivera APRN [Primary Care Provider, Medical] - See instructions Activity Restrictions/Add. Instructions Additional Instructions/Restrictions: You were evaluated in the ER and are believed to be appropriate for discharge at this time. Elevate the leg to reduce pain and swelling. Use the prescribed Lovenox as directed until after you have discussed your formal DVT ultrasound results with a physician. This is the blood thinner shot that you will take twice daily. Because you are on a blood thinner, if you fall or hit your head you must come to the ER to be evaluated. The ultrasound team will call you for an appointment at the beginning of the week, make sure you answer any unfamiliar phone numbers to get this appointment and go to it as soon as possible. Bring the outpatient order form that you have been provided today with you to that appointment. Make an appointment with your primary care doctor for reevaluation on Thursday or Thursday, and an appointment for after your ultrasound for results discussion. Return to the ER with any new, worsening, or otherwise concerning symptoms including lightheadedness, chest pain, difficulty breathing, worsening pain, or anything else that is concerning to you. Clinical Impressions Clinical Impression: Right calf pain, Localized swelling of right lower leg Print Language Print Language: [place] Discharge ED Provider: Chun Hinson General Adult HPI <Chun Hinson MD - Last Filed: 08/19/24 23:23> General Chief complaint: PAIN Stated complaint: Pain and swelling to rt leg no injury Time Seen by Provider: 08/19/24 22:33 Mode of Arrival: Ambulatory Source of Information: Patient Description of Symptoms (Recalled from ER Triage Doc. by RN): pt presents to the ed for evaluation of swelling to RLE, reports pain began 08/14/24 with swelling beginning today. Pt denies any injuries. History of Present Illness HPI narrative: Clemencia Tobias is a 54y female with a history of chronic back pain, recent weight loss she no longer takes medications for hypertension, diabetes, hyperlipidemia as these issues have resolved after losing weight who presents to the emergency department for complaints of right lower extremity pain and swelling. Patient states that on 08/14, she developed pain in her right thigh that extends all the way down to her foot. She states that she has had swelling in that leg ever since. She states that starting today, the pain got worse and it is painful to walk on it. She states it is painful to flex her ankle. She denies any history of blood clots. She is not on any anticoagulant medication. She denies any shortness of breath, cough, hemoptysis, chest pain, fever. She denies any trauma. Related Data Previous Rx's ?Medication ?Instructions ?Recorded tamsulosin 0.4 mg capsule (Flomax) 0.4 mg PO DAILY #30 caps 01/04/24 enoxaparin 80 mg/0.8 mL 75 mg (0.75 mL) SQ Q12H 90 d ays 08/20/24 subcutaneous syringe (Lovenox) #135 mL Allergies Allergy/AdvReac Type Severity Reaction Status Date / Time codeine (CODEINE) Allergy Unknown Nausea Verified 07/19/24 07:03 Sulfa (Sulfonamide Allergy Unknown Nausea Verified 07/19/24 07:03 Antibiotics) (SULFA (SULFONAMIDE ANTIBIOTICS)) [facility] <Chun Hinson MD - Last Filed: 08/19/24 23:23> [facility] Disclaimer: The information contained in this section may have been updated after the patient was seen, as this information can be updated by other users. Medical History (Updated 08/20/24 @ 00:09 by Alcira Cervantes MD) Depression Seizures Migraine Diabetes mellitus, type 2 COPD (chronic obstructive pulmonary disease) Hyperlipidemia Hypertension Surgical History History of surgery History of carpal tunnel surgery History of hysterectomy History of section History of cholecystectomy History of appendectomy Family History Other Cancer Heart disease Hyperlipidemia Hypertension Social History Smoking Status: Current every day smoker tobacco type: cigarettes packs per day: 1 years smoked: 20 second hand exposure: Yes alcohol intake: never substance use type: denies use current occupational status: disabled Travel in the last 8 weeks?: None adopted: Yes household members: spouse housing: house current occupational exposures/hazards: No caffeine: Yes Have you lived/traveled outside [place] in past 30 days?: No Contact w/someone who lives/traveled outside US past 30 days?: No Exposure to someone with infectious disease in past 14 days?: No Do you have a fever (greater than 100.4 F or 38 C)?: No Have you tested positive for COVID-19?: No Exposed to someone with COVID-19 in past 14 days?: No Do you have a sore throat?: No Do you have a cough?: No Do you have any weakness?: No Do you have any diarrhea?: No Are you experiencing any unusual bleeding?: No Do you have any muscle aches/pain?: No Do you have any abdominal pain?: No Are you experiencing loss of taste or smell?: No Other Medical History Have you received the Flu Vaccine for this season: No Have you received the Pneumonia Vaccine: No <Chun Hinson MD - Last Filed: 08/19/24 23:23> ROS Obtained: Yes Systems reviewed as appropriate & no additional complaints except as documented Physical Exam <Chun Hinson MD - Last Filed: 08/19/24 23:23> General General appearance: alert and in no apparent distress Head Head exam: atraumatic Eye Eye exam: Present normal appearance ENT ENT exam: Present normal external ear exam Neck Neck exam: Present full ROM Chest Chest inspection: Present symmetric chest wall rise Respiratory Respiratory exam: Present normal lung sounds bilaterally; Absent respiratory distress Cardiovascular Cardiovascular exam: Present regular rate and normal rhythm Abdominal Exam Abdominal exam: Present soft; Absent tenderness or guarding Extremities Exam Extremities exam: Present normal inspection and other (Right lower extremity: Circumference appears enlarged at the right calf compared to the left. Tenderness in the posterior calf. + Homans sign. DP and PT pulse present. Mild amount of pitting edema present.) Back Exam Back exam: Present normal inspection Neurological Exam Neurological exam: Present alert and oriented X3 Psychiatric Psychiatric exam: Present normal affect Skin Skin exam: Present warm and dry Medical Decision Making <Chun Hinson MD - Last Filed: 08/19/24 23:23> Medical Records Screening: Per USPSTF and CDC recommendations, given the prevalence of disease in our region, it is our hospital?s policy to screen for HIV and viral Hepatitis for all patients aged 18 and over and those with ongoing risk factors. Juan C Inquiry Pt receiving controlled substance: No Vital Signs: 08/19/24 22:36 08/19/24 23:30 08/19/24 23:46 Temperature 98.1 F Temperature Source Oral Pulse Rate Pulse Rate [Radial] 69 Respiratory Rate 16 Blood Pressure 120/61 107/56 L Blood Pressure [Right Arm] 143/90 H Blood Pressure Mean 82 73 Blood Pressure Mean [Right Arm] 107 Blood Pressure Position [Right Arm] Sitting 02 Sat by Pulse Oximetry 99 Oxygen Delivery Method Room Air 08/20/24 00:01 08/20/24 00:15 08/20/24 00:45 Temperature Temperature Source Pulse Rate Pulse Rate [Radial] Respiratory Rate Blood Pressure 129/65 121/70 94/71 L Blood Pressure [Right Arm] Blood Pressure Mean 82 79 74 Blood Pressure Mean [Right Arm] Blood Pressure Position [Right Arm] 02 Sat by Pulse Oximetry 98 97 97 Oxygen Delivery Method 08/20/24 01:00 08/20/24 01:22 08/20/24 01:30 Temperature Temperature Source Pulse Rate 52 L Pulse Rate [Radial] Respiratory Rate Blood Pressure 114/57 L 103/46 L 93/38 L Blood Pressure [Right Arm] Blood Pressure Mean 68 56 Blood Pressure Mean [Right Arm] Blood Pressure Position [Right Arm] 02 Sat by Pulse Oximetry 98 98 Oxygen Delivery Method Lab Data Lab Results 08/19/24 22:54: WBC 7.3, RBC 4.20, Hgb 12.2, Hct 36.9 L, MCV 87.9, MCH 29.0, MCHC 33.1, RDW 13.6, Plt Count 205, MPV 9.8, Neut % (Auto) 50.0, Lymph % (Auto) 38.8, [place] % (Auto) 9.0, Eos % (Auto) 1.4, Baso % (Auto) 0.5, Neut # (Auto) 3.7, Lymph # (Auto) 2.8, [place] # (Auto) 0.7, Eos # (Auto) 0.1, Baso # (Auto) 0.0, PT 10.5, INR 0.94, D-Dimer 0.67 H, Sodium 139, Potassium 3.7, Chloride 102, Carbon Dioxide 28, Anion Gap 12.7, BUN 21 H, Creatinine 1.00, Estimated Creat Clear 77, Estimated GFR 58 L, Est GFR ( Amer) 70, Glucose 116 H, Calcium 9.0, Total Bilirubin 0.4, AST 21, ALT 14, Alkaline Phosphatase 84, Total Creatine Kinase 101, Total Protein 6.9, Albumin 4.0, Globulin 2.9, Albumin/Globulin Ratio 1.4 08/19/24 22:54 08/19/24 22:54 Orders (Tests/Meds): ED MEDICATIONS Discontinued Medications Generic Name Dose Route Start Last Admin Trade Name Freq PRN Reason Stop Dose Admin Enoxaparin Sodium 75 mg 08/20/24 00:30 08/20/24 00:22 Enoxaparin 80mg/0.8ml Syringe SUBCUT 08/20/24 00:31 75 mg ONCE ONE Administration Iopamidol 75 ml 08/20/24 00:31 08/20/24 00:37 Iopamidol-370 (76%);100ml Bottle IV 08/20/24 00:32 75 ml ONCE ONE Administration Ketorolac Tromethamine 15 mg 08/19/24 22:41 08/19/24 22:49 Ketorolac 30mg/Ml Vial IV 08/19/24 22:42 15 mg ONCE ONE Administration Sodium Chloride 50 ml 08/20/24 00:31 08/20/24 00:37 0.9 % Sodium Chloride 50 Ml Vial IV 08/20/24 00:32 50 ml ONCE ONE Administration Sodium Chloride 10 ml 08/20/24 00:31 08/20/24 00:37 Sodium Chloride 0.9% 10ml Syr (Rad Only) IV 08/20/24 00:32 10 ml ONCE ONE Administration ORDERS Category Date Time Status CT abdomen pelvis w con Stat Cat Scan 08/19/24 23:[address] angio chest PE protocol Stat Cat Scan 08/19/24 23:52 Completed POCUS Point of Care (ER Only) Stat Exams 08/19/24 22:39 Completed CBC w/Auto Diff [Complete Blood Count Auto Diff] Stat Lab 08/19/24 22:54 Completed CK [Creatine Kinase] Stat Lab 08/19/24 22:54 Completed CMP [Comprehensive Metabolic Panel] Stat Lab 08/19/24 22:54 Completed D-Dimer Stat Lab 08/19/24 22:54 Completed PT INR [Prothrombin Time INR] Stat Lab 08/19/24 22:54 Completed Medical Decision Narrative: Clemencia Tobias is a 54y female with a history of chronic back pain, recent weight loss she no longer takes medications for hypertension, diabetes, hyperlipidemia as these issues have resolved after losing weight who presents to the emergency department for complaints of right lower extremity pain and swelling. Patient states that on 08/14, she developed pain in her right thigh that extends all the way down to her foot. She states that she has had swelling in that leg ever since. She states that starting today, the pain got worse and it is painful to walk on it. She states it is painful to flex her ankle. She denies any history of blood clots. She is not on any anticoagulant medication. She denies any shortness of breath, cough, hemoptysis, chest pain, fever. She denies any trauma. On arrival, patient mildly hypertensive with blood pressure 143/90, heart rate within normal limits, breathing comfortably room air with oxygen saturation 99% SpO2. Afebrile. Physical exam, stated above, revealed an overall well-appearing female in no distress. Right lower extremity is slightly increased in circumference compared to the left lower extremity at the calf. She has positive Ryan sign. Palpable DP and PT pulses. Swelling seems localized to the distal right lower extremity. Tenderness over the posterior calf without palpable cord. Patient with Wells DVT score of 4 Differential diagnosis includes, but is not limited to: DVT, muscle strain, rhabdomyolysis, lymphedema, low concern for arterial occlusion or cellulitis based on physical exam. Patient is not having any shortness of breath or chest pain and there is low concern for pulmonary embolism. No CT PE is indicated at this time. The most morbid conditions were considered and workup was based on these. Workup in the emergency department included: Lylry-[id number] DVT ultrasound, D- dimer, CBC, CMP, CK, PT/INR. Patient symptoms were treated with 15 mg IV Toradol Port care ultrasound performed by me personally showed compressibility at all levels of the right lower extremity. See procedure note for details. At this time, patient's care was handed off to the oncoming physician, Dr. Cervantes, pending completion of her laboratory studies. <Alcira Cervantes MD - Last Filed: 08/20/24 01:53> Medical Records Medical records reviewed: Yes I reviewed the patient's medical records. Vital Signs: 08/19/24 22:36 08/19/24 23:30 08/19/24 23:46 Temperature 98.1 F Temperature Source Oral Pulse Rate Pulse Rate [Radial] 69 Respiratory Rate 16 Blood Pressure 120/61 107/56 L Blood Pressure [Right Arm] 143/90 H Blood Pressure Mean 82 73 Blood Pressure Mean [Right Arm] 107 Blood Pressure Position [Right Arm] Sitting 02 Sat by Pulse Oximetry 99 Oxygen Delivery Method Room Air 08/20/24 00:01 08/20/24 00:15 08/20/24 00:45 Temperature Temperature Source Pulse Rate Pulse Rate [Radial] Respiratory Rate Blood Pressure 129/65 121/70 94/71 L Blood Pressure [Right Arm] Blood Pressure Mean 82 79 74 Blood Pressure Mean [Right Arm] Blood Pressure Position [Right Arm] 02 Sat by Pulse Oximetry 98 97 97 Oxygen Delivery Method 08/20/24 01:00 08/20/24 01:22 08/20/24 01:30 Temperature Temperature Source Pulse Rate 52 L Pulse Rate [Radial] Respiratory Rate Blood Pressure 114/57 L 103/46 L 93/38 L Blood Pressure [Right Arm] Blood Pressure Mean 68 56 Blood Pressure Mean [Right Arm] Blood Pressure Position [Right Arm] 02 Sat by Pulse Oximetry 98 98 Oxygen Delivery Method Lab Data Lab Results 08/19/24 22:54: WBC 7.3, RBC 4.20, Hgb 12.2, Hct 36.9 L, MCV 87.9, MCH 29.0, MCHC 33.1, RDW 13.6, Plt Count 205, MPV 9.8, Neut % (Auto) 50.0, Lymph % (Auto) 38.8, [place] % (Auto) 9.0, Eos % (Auto) 1.4, Baso % (Auto) 0.5, Neut # (Auto) 3.7, Lymph # (Auto) 2.8, [place] # (Auto) 0.7, Eos # (Auto) 0.1, Baso # (Auto) 0.0, PT 10.5, INR 0.94, D-Dimer 0.67 H, Sodium 139, Potassium 3.7, Chloride 102, Carbon Dioxide 28, Anion Gap 12.7, BUN 21 H, Creatinine 1.00, Estimated Creat Clear 77, Estimated GFR 58 L, Est GFR ( Amer) 70, Glucose 116 H, Calcium 9.0, Total Bilirubin 0.4, AST 21, ALT 14, Alkaline Phosphatase 84, Total Creatine Kinase 101, Total Protein 6.9, Albumin 4.0, Globulin 2.9, Albumin/Globulin Ratio 1.4 Orders (Tests/Meds): ED MEDICATIONS Discontinued Medications Generic Name Dose Route Start Last Admin Trade Name Freq PRN Reason Stop Dose Admin Enoxaparin Sodium 75 mg 08/20/24 00:30 08/20/24 00:22 Enoxaparin 80mg/0.8ml Syringe SUBCUT 08/20/24 00:31 75 mg ONCE ONE Administration Iopamidol 75 ml 08/20/24 00:31 08/20/24 00:37 Iopamidol-370 (76%);100ml Bottle IV 08/20/24 00:32 75 ml ONCE ONE Administration Ketorolac Tromethamine 15 mg 08/19/24 22:41 08/19/24 22:49 Ketorolac 30mg/Ml Vial IV 08/19/24 22:42 15 mg ONCE ONE Administration Sodium Chloride 50 ml 08/20/24 00:31 08/20/24 00:37 0.9 % Sodium Chloride 50 Ml Vial IV 08/20/24 00:32 50 ml ONCE ONE Administration Sodium Chloride 10 ml 08/20/24 00:31 08/20/24 00:37 Sodium Chloride 0.9% 10ml Syr (Rad Only) IV 08/20/24 00:32 10 ml ONCE ONE Administration ORDERS Category Date Time Status CT abdomen pelvis w con Stat Cat Scan 08/19/24 23:[address] angio chest PE protocol Stat Cat Scan 08/19/24 23:52 Completed POCUS Point of Care (ER Only) Stat Exams 08/19/24 22:39 Completed CBC w/Auto Diff [Complete Blood Count Auto Diff] Stat Lab 08/19/24 22:54 Completed CK [Creatine Kinase] Stat Lab 08/19/24 22:54 Completed CMP [Comprehensive Metabolic Panel] Stat Lab 08/19/24 22:54 Completed D-Dimer Stat Lab 08/19/24 22:54 Completed PT INR [Prothrombin Time INR] Stat Lab 08/19/24 22:54 Completed Medical Decision Narrative: Clemencia Tobias is a 54y female with a history of chronic back pain, recent weight loss she no longer takes medications for hypertension, diabetes, hyperlipidemia as these issues have resolved after losing weight who presents to the emergency department for complaints of right lower extremity pain and swelling. Patient states that on 08/14, she developed pain in her right thigh that extends all the way down to her foot. She states that she has had swelling in that leg ever since. She states that starting today, the pain got worse and it is painful to walk on it. She states it is painful to flex her ankle. She denies any history of blood clots. She is not on any anticoagulant medication. She denies any shortness of breath, cough, hemoptysis, chest pain, fever. She denies any trauma. On arrival, patient mildly hypertensive with blood pressure 143/90, heart rate within normal limits, breathing comfortably room air with oxygen saturation 99% SpO2. Afebrile. Physical exam, stated above, revealed an overall well-appearing female in no distress. Right lower extremity is slightly increased in circumference compared to the left lower extremity at the calf. She has positive Ryan sign. Palpable DP and PT pulses. Swelling seems localized to the distal right lower extremity. Tenderness over the posterior calf without palpable cord. Patient with Wells DVT score of 4 Differential diagnosis includes, but is not limited to: DVT, muscle strain, rhabdomyolysis, lymphedema, low concern for arterial occlusion or cellulitis based on physical exam. Patient is not having any shortness of breath or chest pain and there is low concern for pulmonary embolism. No CT PE is indicated at this time. The most morbid conditions were considered and workup was based on these. Workup in the emergency department included: Twyow-dx-ylzu DVT ultrasound, D- dimer, CBC, CMP, CK, PT/INR. Patient symptoms were treated with 15 mg IV Toradol Port care ultrasound performed by me personally showed compressibility at all levels of the right lower extremity. See procedure note for details. At this time, patient's care was handed off to the oncoming physician, Dr. Cervantes, pending completion of her laboratory studies. Cervantes: Upon my assumption of care patient is stable, she states her right calf is uncomfortable. I personally examined her and she has tenderness of the right calf with moderate swelling compared to the left, there is also some erythema developing but no induration. Does not appear cellulitic or infected. I agree with the assessment and plan from Dr. Hinson. I reviewed the ultrasound images from the study he performed and agree that there is no DVT within the imaged vessels. D-dimer is elevated at 0.67 when I reviewed labs increasing my concern for blood clot in the leg or elsewhere. Since patient complained of pain higher up in the leg including the groin as well though she has compressible veins I do have concern for possible thrombus in the iliac area, and with the clinical appearance consistent with DVT in the right lower extremity a course of higher suspicion for the potential of PE as well. Patient has no chest pain or difficulty breathing but I am going to be sending her for CT scan of the abdomen to evaluate the iliacs so I will also perform the CT PE to rule out intrathoracic clot. I reviewed other labs which demonstrate no leukocytosis or anemia, PT/INR normal, CMP with slight prerenal azotemia but patient is actively tolerating oral intake and I am not going to administer IV fluids at this time. Patient received a dose of therapeutic Lovenox in the ER to initiate anticoagulation because with her elevated D-dimer and clinical appearance of the right lower extremity I am going to treat for DVT until formal venous ultrasound can be performed by the ultrasound techs and radiology here, but this will have to happen on an outpatient basis in the next few days. In the meantime she will require anticoagulation. I reviewed the options for prescriptions including oral anticoagulants but unfortunately these are not on formulary, and patient states that she has had the Lovenox shots before and is comfortable doing those at home. Clinic pharmacy is open tomorrow so I am able to send the prescription there for her to fill assuming she gets discharged. These are on formulary for her so therapeutic Lovenox was initiated in the ER. CTA PE personally interpreted does not demonstrate large PE or other acute intrathoracic abnormality, see radiology read for final interpretation. CT abdomen pelvis personally interpreted does not demonstrate good contrast timing to visualize the veins however there does not appear to be any asymmetry between the iliacs or edema surrounding the blood vessels, radiology read is in agreement though I called and spoke with the reading radiologist and she admits that because of the poor contrast timing it is not a perfect study. She does not believe there is likely a thrombus there since as we discussed on ultrasound there is no clot in the common femoral vein and there is no edema surrounding the vessels. We are both also reassured that the patient does not have PE as further reassurance against intra-abdominal vein thrombus though we also agree that the study was poor quality. I appreciate her thoughts. Patient is already on therapeutic Lovenox and I am going to prescribe this for outpatient management as well. Prescription was sent to clinic pharmacy, charge nurse is calling pharmacy and case management for prior authorization to be completed. Patient was also provided outpatient order form for outpatient formal DVT ultrasound of the right lower extremity. Patient is appropriate for discharge at this time. She has remained hemodynamically stable, well-appearing, alert, oriented. I instructed her to continue blood thinners as prescribed until the results of her formal DVT ultrasound have been discussed with her by physician. She is agreeable to this plan. Patient was given instructions on symptomatic monitoring and management, close follow up instructions including for outpatient DVT ultrasound, instructions to follow-up with the pharmacy first thing in the morning to make sure she is able to greens picker her Lovenox during the day so that she does not miss doses, and return precautions for the emergency department including but not limited to worsening swelling or pain, chest pain, lightheadedness, or difficulty breathing. Boyfriend at bedside was also given these instructions they were both given the opportunity to ask questions which were answered to their satisfaction. They both indicated understanding and the patient was discharged in stable condition. Procedures <Chun Hinson MD - Last Filed: 08/19/24 23:23> Limited Ultrasound Interpretation:: Indication: Limited compression ultrasonography of the right lower extremity was performed to evaluate for non-compressibility of the deep veins in the patient. The ultrasound was performed with the following indications, as noted in the H&P: Right leg pain and swelling Identified structures: Right common femoral vein, femoral vein, popliteal vein were examined Findings: Lower Extremity: Right CFV: Good compressibility Right FV: Good compressibility Right Popliteal vein: Good compressibility Impression: Normal DVT ultrasound Images were saved to permanent archive The study was technically adequate CPT: 41758-56-BI [id number] [id number] (complete bilateral study) This study was performed by me, and I personally interpreted all images/videos. Based on my clinical judgement, these images were adequate and did not necessitate further imaging. Critical Care <Chun Hinson MD - Last Filed: 08/19/24 23:23> Critical Care Time Critical Care Time: No
--- NOTE | 2024-08-19 22:55 | PC.NURSE ---
ed provider at the bedside to do POCUS exam.
[2024-08-19 23:03] LABS: Hematocrit 36.9 % (37.0-47.0); Hemoglobin 12.2 g/dL (12.2-16.2); Immature Granulocytes % 0.3 %; Mean Corpuscular HGB Conc 33.1 g/dL (31.8-35.4); Mean Corpuscular Hemoglobin 29.0 pg (27.0-31.2); Mean Corpuscular Volume 87.9 fl (81-99); Nucleated Red Blood Cells % 0 %; Platelet Count 205 K/mm3 (142-424); Red Blood Count 4.20 M/mm3 (4.20-5.40); Red Cell Distribution Width-SD 43.6 fL; White Blood Count 7.3 K/mm3 (4.8-10.8)
[2024-08-19 23:15] LABS: Alanine Aminotransferase 14 U/L (12-78); Albumin Level 4.0 g/dl (3.5-5.0); Albumin/Globulin Ratio 1.4 (1.1-1.8); Alkaline Phosphatase 84 U/L (38-126); Anion Gap 12.7 mEq/L (5-15); Aspartate Amino Transferase 21 U/L (14-36); Bilirubin,Total 0.4 mg/dl (0.2-1.3); Blood Urea Nitrogen 21 mg/dl (7-17); Calcium 9.0 mg/dl (8.4-10.2); Carbon Dioxide 28 mmol/L (22.0-30.0); Chloride 102 mmol/L (98-107); Creatine Kinase 101 U/L (30-135); Creatinine Clearance Estimated 77 mL/min (50-200); Creatinine,Serum 1.00 mg/dl (0.52-1.04); Estimated Glomerular Filt Rate 58 ml/min (>60); GFR (African American) 70 ML/MIN (>60); Globulin 2.9 g/dL (1.3-3.2); Glucose 116 mg/dl (74-100); INR 0.94 (0.9-1.1); Potassium 3.7 mmoL/L (3.5-5.1); Prothrombin Time 10.5 seconds (10.1-12.5); Sodium 139 mmol/L (136-145); Total Protein,Serum 6.9 g/dl (6.3-8.2)
[2024-08-19 23:30] VITALS: BP 120/61
[2024-08-19 23:34] LABS: D-Dimer 0.67 ug/mL (0.0-0.5)
[2024-08-19 23:46] VITALS: BP 107/56
--- NOTE | 2024-08-19 23:52 | CT_ITS ---
PROCEDURE INFORMATION: Exam: CT Abdomen And Pelvis With Contrast Exam date and time: 08/20/2024 12:28 AM Age: 54 years old Clinical indication: Other: Rle swelling; Additional info: Rle swelling, R/O iliac vein thrombus TECHNIQUE: Imaging protocol: Computed tomography of the abdomen and pelvis with contrast. 3D rendering (Not supervised by radiologist): MIP and/or 3D reconstructed images were created by the technologist. Radiation optimization: All CT scans at this facility use at least one of these dose optimization techniques: automated exposure control; mA and/or kV adjustment per patient size (includes targeted exams where dose is matched to clinical indication); or iterative reconstruction. Contrast material: ISOVUE; Contrast volume: 75 ml; Contrast route: IV; COMPARISON: CT ABDOMEN PELVIS W CON 03/30/2022 1:45 AM FINDINGS: Liver: Fatty liver Gallbladder and biliary ducts: Normal. No calcified stones. No ductal dilation. Pancreas: Normal. No ductal dilation. Spleen: Normal. No splenomegaly. Adrenal glands: Normal. No mass. Kidneys and ureters: Normal. No hydronephrosis. Stomach and bowel: Unremarkable. No obstruction. No mucosal thickening. Appendix: No evidence of appendicitis. Intraperitoneal space: Unremarkable. No free air. No significant fluid collection. Vasculature: No abdominal aortic aneurysm. Lymph nodes: Unremarkable. No enlarged lymph nodes. Urinary bladder: Unremarkable as visualized. Reproductive: Hysterectomy Bones/joints: Bilateral L5 pars defects. No acute fracture. Soft tissues: Unremarkable. IMPRESSION: The veins are not opacified on this exam. No acute findings in the abdomen pelvis
--- NOTE | 2024-08-19 23:52 | CT_ITS ---
PROCEDURE INFORMATION: Exam: CTA Chest With Contrast Exam date and time: 08/20/2024 12:28 AM Age: 54 years old Clinical indication: Other: Rle swelling; Additional info: Rle swelling dimer elevated TECHNIQUE: Imaging protocol: Computed tomographic angiography of the chest with contrast. Exam focused on the arteries. 3D rendering (Not supervised by radiologist): MIP and/or 3D reconstructed images were created by the technologist. Radiation optimization: All CT scans at this facility use at least one of these dose optimization techniques: automated exposure control; mA and/or kV adjustment per patient size (includes targeted exams where dose is matched to clinical indication); or iterative reconstruction. Contrast material: ISOVUE; Contrast volume: 75 ml; Contrast route: INTRAVENOUS (IV); COMPARISON: CR XR CHEST 2V 06/27/2024 10:40 PM FINDINGS: Pulmonary arteries: Normal. No pulmonary emboli. Aorta: Unremarkable. No aortic aneurysm. No aortic dissection. Lungs: Unremarkable. No consolidation. No masses. Pleural spaces: Unremarkable. No pneumothorax. No pleural effusion. Heart: Unremarkable. No cardiomegaly. No pericardial effusion. Lymph nodes: Unremarkable. No enlarged lymph nodes. Bones/joints: Unremarkable. No acute fracture. Soft tissues: Unremarkable. IMPRESSION: No acute findings.
--- NOTE | 2024-08-19 23:54 | PC.NURSE ---
pt ambulates with slow steady gait to restroom. Decision to send patient to CT scan made per provider.
[2024-08-20 00:01] VITALS: BP 129/65; O2SAT 98
--- NOTE | 2024-08-20 00:14 | PC.NURSE ---
ed provider at the bedside.
[2024-08-20 00:15] VITALS: BP 121/70; O2SAT 97
--- NOTE | 2024-08-20 00:22 | PC.NURSE ---
pt taken to ct scan at this time. While giving injection, new redness noted to LLE that was not present when she arrived to the ED.
[2024-08-20] MEDS: 0.9 % SODIUM CHLORIDE 50 ML VIAL IV (00:37)
[2024-08-20] MEDS: IOPAMIDOL-370 (76%);100ML BOTTLE 75 ML IV (00:37)
[2024-08-20] MEDS: SODIUM CHLORIDE 0.9% 10ML SYR (RAD ONLY) 10 ML IV (00:37)
[2024-08-20 00:45] VITALS: BP 94/71; O2SAT 97
[2024-08-20 01:00] VITALS: BP 114/57; O2SAT 98
[2024-08-20 01:22] VITALS: BP 103/46; PULSE 52; O2SAT 98
--- NOTE | 2024-08-20 01:36 | PC.NURSE ---
pt resting in bed with eyes closed, nad noted, rr even and non labored, skin pwd.
[2024-08-20 02:02] VITALS: BP 87/71; PULSE 68; RESP 16; TEMP 37.2; O2SAT 100
--- NOTE | 2024-08-20 11:13 | CARE MANAGER ---
Verified Lovenox did not require authorization and patient has picked prescription [facility] from [facility].
== END 2024-08-20 02:03 | disposition home or self-care (01) ==
PROVIDERS: Emergency Provider Student in an Organized Health Care Education/Training Program; PCP Nurse Practitioner
DX: M79.661 Pain in right lower leg (principal); R22.41 Localized swelling, mass and lump, right lower limb; F17.210 Nicotine dependence, cigarettes, uncomplicated
CPT/HCPCS: 71275; 74177; 80053; 82550; 85025; 85378; 85610; 96374; 99285; J1650; J1885; Q9967

== ENCOUNTER 2024-08-22 13:22 | Outpatient (CLI) | payer MEDICARE, MEDICAID, SELFPAY ==
--- NOTE | 2024-08-22 | CA_ITS ---
FINAL REPORT TECHNIQUE: Multiple transverse and longitudinal images were performed of right the femoral-popliteal deep venous system with augmentation and compression maneuvers. CLINICAL HISTORY: RT CALF PAIN AND EDEMA FINDINGS: Right lower extremity duplex ultrasound demonstrates normal flow in the deep venous system. There is no abnormal echogenicity to suggest thrombus. There is normal compression and augmentation. There is an elongated fluid collection in the proximal calf, along the myofascial surface measuring 6.0 x 1.2 cm which could represent old hematoma or seroma. IMPRESSION: No evidence of right DVT. 6.0 x 1.2 cm fluid collection in the proximal calf which could represent old hematoma or seroma. Reviewed, Interpreted and Dictated by Sumaya Kitchen MD Transcribed by Mere Rodriguez Authenticated and [facility]
== END 2024-08-22 23:59 | disposition home or self-care (01) ==
LOC: RT 13:23
PROVIDERS: PCP Nurse Practitioner; Visit Provider Emergency Medicine
DX: M79.661 Pain in right lower leg (principal); R22.41 Localized swelling, mass and lump, right lower limb
CPT/HCPCS: 93971

== ENCOUNTER 2024-08-24 15:28 | Emergency (ER) | payer MEDICARE, MEDICAID, SELFPAY ==
[2024-08-24] VITALS (7 sets, daily range): BP systolic 116–150; BP diastolic 71–93; PULSE 58–82; RESP 15–17; TEMP 36.8–37.1; O2SAT 96–98; BMI 35.9
--- NOTE | 2024-08-24 16:13 | ED_ITS ---
<Statement entered by Dora Jaramillo DO - 08/24/24 20:35> I was consulted by the WILLIE, and we discussed the complexity of the problems being addressed. I approved the treatment and management plan for this patient's care in the emergency department, thus performing a substantive portion of the medical decision making. Dora Jaramillo DO Discharge Plan Disposition Patient Disposition: Home, Self-Care Condition: Good Prescriptions Prescriptions: No Action tamsulosin [Flomax] 0.4 mg capsule 0.4 mg PO DAILY Qty: 30 3RF enoxaparin [Lovenox] 80 mg/0.8 mL syringe 75 mg SQ Q12H 90 Days Qty: 135 0RF Referrals Follow up/Referrals: Nicole (ED),JOJO Joyce [Primary Care Provider, Emergency Medicine] - See instructions Activity Restrictions/Add. Instructions Additional Instructions/Restrictions: Please return to the emergency department with any worsening signs or symptoms, please keep your follow-up with pain management and your follow-up for your MRI please continue take all medication as prescribed. Clinical Impressions Clinical Impression: Pain in right ankle Instructions Patient Instructions: DI for Ankle Pain Print Language Print Language: Guyanese Discharge ED Provider: Dora Jaramillo General Adult HPI General Chief complaint: Extremity Injury, Lower Stated complaint: rt ankle swollen turning purple, here 6-11 Time Seen by Provider: 08/24/24 16:06 Mode of Arrival: Ambulatory Source of Information: Patient Description of Symptoms (Recalled from ER Triage Doc. by RN): She has been having pain and swelling in right foot since she had a pain inject in lower back several weeks ago. Patient states she has been seen at the ER and PCP office, had CT scan done and ultrasounds done. Has an MRI scheduled for Thursday08/26/24. Is currently on steroids, but cannot handle the pain. History of Present Illness HPI narrative: 54-year-old female presents to the emergency department with a chief complaint of right ankle pain and swelling and ecchymoses for the last 2 weeks, she denies really any injury, does endorse remote history of dropping something , on my right foot a few weeks ago, patient was actually seen in the emergency department for similar complaint on 08/19/2024, had negative imaging studies, to consist of a duplex DVT ultrasound, on 08/22/2024, negative CTAs and laboratory studies. At that time she endorsed full right lower extremity pain and swelling, that started on 08/14, has been ambulating, but has some pain limited range of motion, denies any fever chills chest pain shortness of breath nausea vomiting constipation diarrhea no urinary type symptomatology, no urinary bladder or bowel dysfunction,, no other recent injury or trauma per history, she is currently a smoker, denies any alcohol or drug use, other past medical history is consistent with obesity, psychogenic nonepileptic seizure, COPD, sacroiliitis/chronic pain syndrome, she does follow with pain management for lower lumbar spine pain and radiculopathy. Initial triage vitals unremarkable. Of note, does have an MRI of her lumbar spine scheduled for 08/26/2024, currently on it sounds like p.o. glucocorticoids for pain. Onset (ago): day(s) Related Data Previous Rx's ?Medication ?Instructions ?Recorded tamsulosin 0.4 mg capsule (Flomax) 0.4 mg PO DAILY #30 caps 01/04/24 enoxaparin 80 mg/0.8 mL 75 mg (0.75 mL) SQ Q12H 90 d ays 08/20/24 subcutaneous syringe (Lovenox) #135 mL Allergies Allergy/AdvReac Type Severity Reaction Status Date / Time codeine (CODEINE) Allergy Unknown Nausea Verified 07/19/24 07:03 Sulfa (Sulfonamide Allergy Unknown Nausea Verified 07/19/24 07:03 Antibiotics) (SULFA (SULFONAMIDE ANTIBIOTICS)) [facility] Disclaimer: The information contained in this section may have been updated after the patient was seen, as this information can be updated by other users. Medical History (Updated 08/24/24 @ 17:41 by DENEEN Coats) Depression Seizures Migraine Diabetes mellitus, type 2 COPD (chronic obstructive pulmonary disease) Hyperlipidemia Hypertension Surgical History History of surgery History of carpal tunnel surgery History of hysterectomy History of section History of cholecystectomy History of appendectomy Family History Other Cancer Heart disease Hyperlipidemia Hypertension Social History Smoking Status: Current every day smoker tobacco type: cigarettes packs per day: 1 years smoked: 20 second hand exposure: Yes alcohol intake: never substance use type: denies use current occupational status: disabled Travel in the last 8 weeks?: None adopted: Yes household members: spouse housing: house current occupational exposures/hazards: No caffeine: Yes Have you lived/traveled outside [place] in past 30 days?: No Contact w/someone who lives/traveled outside US past 30 days?: No Exposure to someone with infectious disease in past 14 days?: No Do you have a fever (greater than 100.4 F or 38 C)?: No Have you tested positive for COVID-19?: No Exposed to someone with COVID-19 in past 14 days?: No Do you have a sore throat?: No Do you have a cough?: No Do you have any weakness?: No Do you have any diarrhea?: No Are you experiencing any unusual bleeding?: No Do you have any muscle aches/pain?: No Do you have any abdominal pain?: No Are you experiencing loss of taste or smell?: No Other Medical History Have you received the Flu Vaccine for this season: No Have you received the Pneumonia Vaccine: No ROS Obtained: Yes All systems reviewed & no additional complaints except as documented Physical Exam General General appearance: alert and in no apparent distress Head Head exam: atraumatic and normocephalic Eye Eye exam: Present PERRL and EOMI ENT ENT exam: Present mucous membranes moist Neck Neck exam: Present normal inspection Chest Chest inspection: Present normal inspection and symmetric chest wall rise Respiratory Respiratory exam: Present normal lung sounds bilaterally; Absent respiratory distress Cardiovascular Cardiovascular exam: Present regular rate and normal rhythm Abdominal Exam Abdominal exam: Present soft; Absent tenderness, guarding or rebound Extremities Exam Extremities exam: Present normal inspection, tenderness, joint swelling and other (Mild ecchymosis around the lateral malleolus on the right, some pain limited range of motion and pain to palpation over the right lateral malleolus, otherwise neurovascular intact.); Absent full ROM Back Exam Back exam: Present straight leg raise (R) Neurological Exam Neurological exam: Present alert, oriented X3 and other (5 out of 5 strength in bilateral lower and upper extremities, no gross sensation deficit) Psychiatric Psychiatric exam: Present normal affect Skin Skin exam: Present warm and dry Medical Decision Making Medical Records Medical records reviewed: Yes I reviewed the patient's medical records. Screening: Per USPSTF and CDC recommendations, given the prevalence of disease in our region, it is our hospital?s policy to screen for HIV and viral Hepatitis for all patients aged 18 and over and those with ongoing risk factors. Juan C Inquiry Pt receiving controlled substance: No Juan C was queried for this patient: No Vital Signs: 08/24/24 16:08 08/24/24 16:15 08/24/24 16:30 Temperature 98.3 F Temperature Source Oral Pulse Rate 75 64 Pulse Rate [Right Brachial] 82 Respiratory Rate 17 Blood Pressure 128/75 130/75 Blood Pressure [Right Arm] 150/93 H Blood Pressure Mean [Right Arm] 112 Blood Pressure Source [Right Arm] Automatic Cuff Blood Pressure Position [Right Arm] Sitting 02 Sat by Pulse Oximetry 98 98 96 Oxygen Delivery Method Room Air 08/24/24 16:46 08/24/24 17:01 08/24/24 17:15 Temperature Temperature Source Pulse Rate 65 58 L 73 Pulse Rate [Right Brachial] Respiratory Rate Blood Pressure 135/71 116/73 130/74 Blood Pressure [Right Arm] Blood Pressure Mean [Right Arm] Blood Pressure Source [Right Arm] Blood Pressure Position [Right Arm] 02 Sat by Pulse Oximetry 97 96 97 Oxygen Delivery Method Orders (Tests/Meds): ORDERS Category Date Time Status XR ankle RT min 3V Stat Exams 08/24/24 16:37 Completed XR foot RT min 3V Stat Exams 08/24/24 16:37 Completed Medical Decision Narrative: 54-year-old female presents the emergency department with right ankle pain and swelling as well as ecchymoses, differential diagnosis include but not limited to, ankle sprain/strain, ankle fracture, foot fracture, foot sprain/strain, dependent edema, among others. I discussed this patient's case with the attending physician Dr. Jaramillo Will obtain x-ray of the foot, x-ray of the ankle on the right for further evaluation/characterization. [place], laboratory studies and other imaging not to be needed at this time. As patient had negative DVT, negative CTAs and laboratory studies less than a week ago and patient has remained hemodynamically stable, no other acute complaints. The patient's right ankle x-ray and right foot x-ray along with corresponding radiologic report, no acute skeletal pathology, significant ankle swelling, incidental findings as above. I had a long discussion with the patient and family the bedside, patient slated to have MRI of the lumbar spine in the upcoming days advised her to keep this appointment, we will get the patient a walking boot as needed for symptomatic relief, patient may have some degree of ankle strain/sprain, patient I do believe has some degree of lumbar degenerative disc disease, has a positive straight leg test on the right, with history of lumbar radiculopathy, could be to some degree of peripheral artery disease, patient family voiced understanding and agreement with current treatment plan/discharge plan. Patient continue take all her medication as prescribed. Patient and family voiced understanding agreed on the current treatment plan/discharge plan, strict return precaution were given. Critical Care Critical Care Time Critical Care Time: No
--- NOTE | 2024-08-24 16:37 | XR_ITS ---
PROCEDURE INFORMATION: Exam: XR Right Foot Exam date and time: 08/24/2024 4:44 PM Age: 54 years old Clinical indication: Pain; Ankle and foot; Right; Additional info: Right ankle/foot pain swelling and ecchymoses TECHNIQUE: Imaging protocol: Radiologic exam of the right foot. Views: 3 or more views. COMPARISON: CT ANGIO LE BI 08/27/2023 4:49 PM FINDINGS: Bones/joints: Normal anatomic alignment. The bone density is normal for this patient's age. Prominent osteophyte/spur at the base of the 5th metatarsal. Large plantar calcaneal spur. Moderate posterior calcaneal enthesophyte. Mild osteoarthritis of the tibiotalar joint. No acutely displaced fractures. No joint dislocation. No aggressive osseous lesions. Soft tissues: Swelling at the level of the ankle. IMPRESSION: 1. No acute skeletal pathology. 2. Swelling at the level of the ankle. 3. Incidental findings as above.
--- NOTE | 2024-08-24 16:37 | XR_ITS ---
PROCEDURE INFORMATION: Exam: XR Right Ankle Exam date and time: 08/24/2024 4:44 PM Age: 54 years old Clinical indication: Pain; Ankle and foot; Right; Additional info: Right ankle pain, ecchymosis and swelling TECHNIQUE: Imaging protocol: Radiologic exam of the right ankle. Views: 3 or more views. COMPARISON: CT ANGIO LE BI 08/27/2023 4:49 PM FINDINGS: Bones/joints: Chronic well corticated osseous fragment inferior to the medial malleolus, likely related to a healed nonunited avulsion fracture or chronic calcific tendinopathy. Mild osteoarthritis of the tibiotalar joint. Normal anatomic alignment. The bone density is normal for this patient's age. No acutely displaced fractures. No joint dislocation. No aggressive osseous lesions. Large plantar calcaneal spur. Small posterior calcaneal enthesophyte. Prominent spur/osteophyte at the base of the 5th metatarsal. Soft tissues: Significant ankle swelling. IMPRESSION: 1. No acute skeletal pathology. 2. Significant ankle swelling. 3. Incidental findings as above.
== END 2024-08-24 18:18 | disposition home or self-care (01) ==
PROVIDERS: Emergency Provider Emergency Medicine; PCP Nurse Practitioner
DX: M25.571 Pain in right ankle and joints of right foot (principal); F17.210 Nicotine dependence, cigarettes, uncomplicated; I10 Essential (primary) hypertension; E78.5 Hyperlipidemia, unspecified
CPT/HCPCS: 73610; 73630; 99284

== ENCOUNTER 2024-08-26 15:17 | Outpatient (CLI) | payer MEDICARE, MEDICAID, SELFPAY ==
--- NOTE | 2024-08-26 15:20 | MR_ITS ---
FINAL REPORT TECHNIQUE: Multiplanar MR without contrast CLINICAL HISTORY: RT LEG PAIN/LBP MULT SITES FINDINGS: Sagittal images show normal vertebral height. There are discogenic endplate signal changes at L5-S1. There is grade 1 spondylolisthesis of L5 on S1. There are underlying pars defects at L5-S1 bilaterally. L1-2: Unremarkable L2-3: Minimal annular disc bulge without canal stenosis. L3-4: Mild annular disc bulge with mild central canal stenosis. L4-5: No focal disc protrusion. Mild facet arthropathy. L5-S1: Mild annular disc bulge. Mild facet arthropathy. Mild central canal stenosis severe bilateral neuroforaminal narrowing. IMPRESSION: Grade 1 spondylolisthesis of L5 on S1 secondary to pars defects with canal stenosis and severe bilateral neuroforaminal narrowing. Reviewed, Interpreted and Dictated by Sumaya Kitchen MD Transcribed by Giuliana Fernandez Authenticated and . [facility]
== END 2024-08-26 23:59 | disposition home or self-care (01) ==
LOC: RAD 15:17
PROVIDERS: PCP Nurse Practitioner; Visit Provider Nurse Practitioner
DX: M43.17 Spondylolisthesis, lumbosacral region (principal); M48.07 Spinal stenosis, lumbosacral region; M99.73 Connective tissue and disc stenosis of intervertebral foramina of lumbar region
CPT/HCPCS: 72148

== ENCOUNTER 2024-08-30 07:31 | Day surgery (SDC) | payer MEDICARE, MEDICAID, SELFPAY ==
[2024-08-29 11:55] VITALS: BMI 35.9
[2024-08-30 07:52] VITALS: BP 109/71; PULSE 57; RESP 18; TEMP 36.1; O2SAT 98; BMI 35.9
[2024-08-30] MEDS: LACTATED RINGERS 1000ML 1,000 ML 50 ML IV (08:06)
--- NOTE | 2024-08-30 08:21 | P.PNANES_ITS ---
[facility] Disclaimer: The information contained in this section may have been updated after the patient was seen, as this information can be updated by other users. Medical History Depression Seizures Migraine Diabetes mellitus, type 2 COPD (chronic obstructive pulmonary disease) Hyperlipidemia Hypertension Surgical History History of surgery History of carpal tunnel surgery History of hysterectomy History of section History of cholecystectomy History of appendectomy Family History Other Cancer Heart disease Hyperlipidemia Hypertension Social History (Updated 08/30/24 @ 08:00 by Marylou Guallpa RN) Smoking Status: Current every day smoker tobacco type: cigarettes packs per day: 1 years smoked: 20 second hand exposure: Yes alcohol intake: never substance use type: denies use current occupational status: disabled Travel in the last 8 weeks?: None adopted: Yes household members: spouse housing: house current occupational exposures/hazards: No caffeine: Yes Have you lived/traveled outside [place] in past 30 days?: No Contact w/someone who lives/traveled outside US past 30 days?: No Exposure to someone with infectious disease in past 14 days?: No Do you have a fever (greater than 100.4 F or 38 C)?: No Have you tested positive for COVID-19?: No Exposed to someone with COVID-19 in past 14 days?: No Do you have a sore throat?: No Do you have a cough?: No Do you have any weakness?: No Are you experiencing any nausea/vomitting?: No Do you have any diarrhea?: No Are you experiencing any unusual bleeding?: No Do you have any muscle aches/pain?: No Do you have any abdominal pain?: No Are you experiencing loss of taste or smell?: No [facility] Anesthesia Checklist Patient Identification Patient Identification: Arm Band Structural Data Admitted From: Home Planned Operative Procedure/s: Colonoscopy Consent for Planned Operative Procedure(s) Verified: Yes Verified Documents: Surgical Consent and History and Physical NPO Status Verified Time NPO: 00:00 Additional verifications Anesthesia Reactions: No Hx Blood Transfusions: No Blood Transfusion Reaction: No Airway Assessment Mallampati Score:: Class II C-Spine Mobility Assessed: Yes TMJ Mobility Assessed: Yes Dentition: Edentulous Neurological Assessment Level of Consciousness: Awake, Alert and Appropriate Anesthesia Plan Anesthesia Risk discussed: Yes Anesthesia Plan: Verified ASA Class: III Anesthesia Type: MAC
--- NOTE | 2024-08-30 08:22 | EXP.GEN.HP ---
HPI HPI HPI: This is a 54-year-old female who presents for colonoscopy. No melena. No bright red blood per rectum. No unexplained weight loss. She states that she had a colonoscopy approximately 20 years ago. She reports history of polyps. [facility] Disclaimer: The information contained in this section may have been updated after the patient was seen, as this information can be updated by other users. Medical History (Updated 08/30/24 @ 08:23 by Fred Osman MD) Depression Seizures Migraine Diabetes mellitus, type 2 COPD (chronic obstructive pulmonary disease) Hyperlipidemia Hypertension Surgical History History of surgery History of carpal tunnel surgery History of hysterectomy History of section History of cholecystectomy History of appendectomy Family History Heart disease Hyperlipidemia Cancer Hypertension Social History (Updated 08/30/24 @ 08:00 by Marylou Guallpa RN) Smoking Status: Current every day smoker tobacco type: cigarettes packs per day: 1 years smoked: 20 second hand exposure: Yes alcohol intake: never substance use type: denies use current occupational status: disabled Travel in the last 8 weeks?: None adopted: Yes household members: spouse housing: house current occupational exposures/hazards: No caffeine: Yes Have you lived/traveled outside [place] in past 30 days?: No Contact w/someone who lives/traveled outside [place] past 30 days?: No Exposure to someone with infectious disease in past 14 days?: No Do you have a fever (greater than 100.4 F or 38 C)?: No Have you tested positive for COVID-19?: No Exposed to someone with COVID-19 in past 14 days?: No Do you have a sore throat?: No Do you have a cough?: No Do you have any weakness?: No Are you experiencing any nausea/vomitting?: No Do you have any diarrhea?: No Are you experiencing any unusual bleeding?: No Do you have any muscle aches/pain?: No Do you have any abdominal pain?: No Are you experiencing loss of taste or smell?: No Other Medical History Have you received the Flu Vaccine for this season: No Have you received the Pneumonia Vaccine: No Review of Systems Review of Systems Review of systems:: pertinent systems reviewed and negative unless documented below Meds Home Medications and Allergies Home Medications ?Medication ?Instructions ?Recorded ?Confirmed ?Type tamsulosin 0.4 mg capsule (Flomax) 0.4 mg PO DAILY #30 caps 01/04/24 08/29/24 Rx gabapentin 300 mg capsule 300 mg PO BID 08/29/24 08/29/24 History methocarbamol 500 mg tablet 500 mg PO TID 08/29/24 08/29/24 History tramadol 50 mg tablet 50 mg PO DAILY 08/29/24 08/29/24 History New Prescriptions to Start Prescriptions: Allergies Allergy/AdvReac Type Severity Reaction Status Date / Time codeine (CODEINE) Allergy Unknown Nausea Verified 08/30/24 08:01 Sulfa (Sulfonamide Allergy Unknown Nausea Verified 08/30/24 08:01 Antibiotics) (SULFA (SULFONAMIDE ANTIBIOTICS)) Exam Data for Last 24 hours Vital signs and Labs for Last 24 Hours: Temp Resp BP Pulse Ox O2 Del Method 97.0 F L 18 109/71 L 98 Room Air 08/30/24 07:52 08/30/24 07:52 08/30/24 07:52 08/30/24 07:52 08/30/24 07:52 I & O for Last 24 hours: Intake & Output 08/27/24 08/28/24 08/29/24 08/30/24 11:59 11:59 11:59 11:59 Weight 172 lb 172 lb Constitutional Constitutional: no acute distress *Routine HEENT Exam Head: Present normocephalic Eye: Present EOMI ENT: Present mucous membranes moist *Routine Neck Exam Neck: Present full ROM *Routine Respiratory Exam Respiratory: Absent respiratory distress *Routine Cardiovascular Exam Cardiovascular: Absent tachycardia *Routine Abdominal Exam Abdominal: Present soft *Routine Rectal Exam Rectal:: deferred *Routine Genitalia Exam Genitalia:: deferred *Routine Extremities Exam Extremities: Present full ROM *Routine Skin Exam Skin: Absent erythema *Routine Neurological Exam Neurological: Present alert Assessment and Plan *Assessment and plan (1) History of colon polyps: Status: Acute Category: Medical Code(s): Z86.0100 - Personal history of colon polyps, unspecified Plan: Colonoscopy today I have discussed the risks and benefits including, but not limited to: Bleeding Infection Damage to surrounding tissue Inherent risks of sedation The patient agrees to proceed.
--- NOTE | 2024-08-30 08:23 | P.PCN_ITS ---
Procedure: Date: 08/30/24 Patient Date of :: 1970 Procedure Performed:: Colonoscopy Indications:: History of colon polyps Note: Patient reports a history of colonoscopy approximately 20 years ago at [facility] time she was diagnosed with polyps. Performing Provider:: Fred Osman MD Referring Provider:: . Sedation:: Monitored anesthesia care Procedure:: After informed consent was obtained the patient was taken to the endoscopy suite. Sedation ensued after the patient was transferred to the left lateral decubitus position. Pulse, blood pressure, and oxygen saturation were monitored throughout the procedure. Digital rectal exam revealed no significant abnormality. The colonoscope was placed in position. The entire colon was evaluated. The colonoscope was carefully removed and the patient was transferred to recovery in stable condition. Please see findings and specimens below for detail. Findings:: Bowel preparation poor Specimens:: None Recommendations:: Repeat colonoscopy in 6-12 months with extended/alternative bowel preparation Complications:: No immediate with the exception of poor bowel Estimated blood obtained (mL): 0 Colonoscopy Component Colonoscopy Component Was a colonoscopy performed during today's procedure?: Yes Recommended follow up colonoscopy of at least 10 years?: No If no, follow up colonoscopy recommended in ___ years?: (See above) Reason for not recommending >/= 10 yr follow-up interval?: (See above)
[2024-08-30 08:51] VITALS: BP 85/49; PULSE 54; RESP 16; TEMP 36.5; O2SAT 97
[2024-08-30 09:01] VITALS: BP 86/50; PULSE 50; RESP 16; O2SAT 97
[2024-08-30 09:11] VITALS: BP 109/69; PULSE 53; RESP 18; O2SAT 100
[2024-08-30 09:12] VITALS: BP 113/68; PULSE 60; RESP 16; O2SAT 99
== END 2024-08-30 09:19 | disposition home or self-care (01) ==
PROVIDERS: PCP Nurse Practitioner; Visit Provider Surgery
PROC: 0DJD8ZZ Inspection of Lower Intestinal Tract, Via Natural or Artificial Opening Endoscopic (ICD-10-PCS; CPT 45378; principal; 2024-08-30 08:45)
DX: K59.09 Other constipation (principal); Z86.0100 Personal history of colon polyps, unspecified; J44.9 Chronic obstructive pulmonary disease, unspecified; E11.9 Type 2 diabetes mellitus without complications; E78.5 Hyperlipidemia, unspecified; I10 Essential (primary) hypertension; R56.9 Unspecified convulsions; Z80.9 Family history of malignant neoplasm, unspecified; F17.210 Nicotine dependence, cigarettes, uncomplicated; Z88.5 Allergy status to narcotic agent; Z88.2 Allergy status to sulfonamides; Z79.899 Other long term (current) drug therapy
CPT/HCPCS: 45378; 96374; J2003; J2704; J7120

== ENCOUNTER 2024-09-13 07:38 | Outpatient (CLI) | payer MEDICARE, MEDICAID, SELFPAY ==
--- NOTE | 2024-09-13 | US_ITS ---
FINAL REPORT CLINICAL HISTORY: Claudication R>L, rest pain R >L, HTN, HLD, DM, smoker, COPD FINDINGS: Ankle-brachial indices were obtained. The right CATALINA is 1.3. The left CATALINA is 1.2. IMPRESSION: ABIs are within normal limits. Reviewed, Interpreted and Dictated by Jovany Arreola MD Transcribed by Giuliana Fernandez Authenticated and [facility]
== END 2024-09-13 23:59 | disposition home or self-care (01) ==
LOC: RT 07:39
PROVIDERS: PCP Nurse Practitioner; Visit Provider Nurse Practitioner
DX: I73.9 Peripheral vascular disease, unspecified (principal); M79.606 Pain in leg, unspecified; I10 Essential (primary) hypertension; E78.5 Hyperlipidemia, unspecified; E11.9 Type 2 diabetes mellitus without complications; F17.200 Nicotine dependence, unspecified, uncomplicated; J44.9 Chronic obstructive pulmonary disease, unspecified
CPT/HCPCS: 93923; 93924

== ENCOUNTER 2024-09-26 08:53 | Outpatient (CLI) | payer MEDICARE, MEDICAID, SELFPAY ==
--- NOTE | 2024-09-26 08:45 | CA_ITS ---
APPROVED REPORT EXAM: Comprehensive 2D, Doppler, and color-flow Echocardiogram Medical Staff Credentialing Coordinator: Frannie Herrera, RT(R) Ht: 4 ft 10 in Wt: 174lbs BSA: 1.72 BP: 102/67 mmHg Indications: shortness of air, HFrEF, EF 40-45% on echo 2019. 2D Dimensions Left Atrium 4.20 cm F: 2.7 - 3.8 LVEF (Cade's) 49.50 % F: 54 - 74 LVOT 1.90 cm (M/F) 1.5-2.5 LV Volume 96.80 mL F: 46 - 106 LV Volume Index 56.3 mL/m2 F: 29 - 61 LA Volume 27.50 mL LA Volume Index 15.99 mL/m2 (M/F) 16-34 EF AP4 47.60 % EF AP2 48.4 % EF BP 49.5 % GL Strain -18.1 % M-Mode Dimensions RVDd 2.41 cm (0.9-2.6) LVDd 5.67 cm (3.5-5.7) Ao Diam 2.99 cm (2.0-3.7) LVDs 3.86 cm (3.5-5.7) IVSd 0.84 cm (0.6-1.1) PWd 0.60 cm (0.6-1.1) EF (Teich) 59.30% FS 31.90% EDV (Teich) 158.10 mL ESV (Teich) 64.30 mL LV Diastology E Decel Time 228 (160-240 msec) E/A Ratio 1.1 MED E' 6.6 (>= 7 cm/sec) E'/MED E' Ratio 16.35 (<= 14) LAT E' 10.6 (>= 10 cm/sec) E/LAT E' Ratio 10.18 (<= 14) Mitral Valve MV E Max Cheko. 108.0 (40-130 cm/s) MV A Velocity 94.0 (40-130 cm/s) E/A Ratio 1.15 MV Decel. Time 228 (160-240 ms) Tricuspid Valve TR P. Velocity 255.00 cm/s Left Ventricle The left ventricle is normal size. Left ventricular systolic function is normal. The left ventricular ejection fraction is within the normal range. There is normal left ventricular wall thickness. There is normal LV segmental wall motion. The left ventricular diastolic function is normal. LVEF is 55% Right Ventricle The right ventricle is borderline dilated. The right ventricular systolic function is normal. Atria The left atrium is mildly dilated. The right atrium is mildly dilated. There is no color Doppler evidence of interatrial shunt. Aortic Valve The aortic valve opens well. There is no hemodynamically significant aortic valvular stenosis. Trace aortic regurgitation is present. Mitral Valve The mitral valve is normal in structure. No evidence of mitral valve stenosis. Mild mitral regurgitation is present. Tricuspid Valve The tricuspid valve leaflets are thin and pliable. Mild tricuspid regurgitation. RVSP is 25-30 mmHg. Pulmonic Valve The pulmonary valve is grossly normal in structure. Trace pulmonic valve regurgitation is present. Great Vessels The aortic root is normal in size. IVC is normal in size and collapses >50% with inspiration. Pericardium There is no pericardial effusion. Other Information Study Quality: Fair Conclusion Normal biventricular systolic function. Mild biatrial dilation. Mild MR, mild TR. Electronically signed by : Asia Cowan MD 09/27/2024 15:26:56
== END 2024-09-26 23:59 | disposition home or self-care (01) ==
LOC: RT 08:54
PROVIDERS: PCP Nurse Practitioner; Visit Provider Physician Assistant
DX: I08.1 Rheumatic disorders of both mitral and tricuspid valves (principal); I11.0 Hypertensive heart disease with heart failure; I50.20 Unspecified systolic (congestive) heart failure; M79.661 Pain in right lower leg
CPT/HCPCS: 93306

== ENCOUNTER 2024-10-26 08:03 | Outpatient (CLI) | payer MEDICARE, MEDICAID, SELFPAY ==
--- NOTE | 2024-10-26 08:06 | XR_ITS ---
FINAL REPORT CLINICAL HISTORY: Pain of left ankle, hx of surgery COMPARISON: None FINDINGS: Three views of the left ankle show no evidence of acute displaced fracture or dislocation of the visualized bony architecture. There are old avulsion fractures of the medial and lateral malleoli. Moderate degenerative changes are noted. There is no joint effusion. Large calcaneal osteophytes are noted. IMPRESSION: Degenerative/chronic changes without acute bony abnormality. Reviewed, Interpreted and Dictated by Sumaya Kitchen MD Transcribed by Jerica Roman Authenticated and . [facility]
--- NOTE | 2024-10-26 08:06 | XR_ITS ---
FINAL REPORT CLINICAL HISTORY: Pain in left foot COMPARISON: None FINDINGS: Three views of the left foot show no evidence of acute displaced fracture or dislocation of the visualized bony architecture. There are moderate degenerative changes of the hindfoot and midfoot. Bulky calcaneal osteophytes are noted. No evidence of bony erosion. IMPRESSION: Degenerative/chronic changes without acute bony abnormality. Reviewed, Interpreted and Dictated by Sumaya Kitchen MD Transcribed by Jerica Roman Authenticated and . [facility]
== END 2024-10-26 23:59 | disposition home or self-care (01) ==
LOC: RAD 08:04
PROVIDERS: PCP Nurse Practitioner; Visit Provider Nurse Practitioner
DX: M19.072 Primary osteoarthritis, left ankle and foot (principal); Z98.890 Other specified postprocedural states
CPT/HCPCS: 73610; 73630

== ENCOUNTER 2024-12-21 10:12 | Outpatient (CLI) | payer MEDICARE, MEDICAID, SELFPAY ==
[2024-12-21 11:17] LABS: Alanine Aminotransferase 14 U/L (12-78); Albumin Level 4.0 g/dl (3.5-5.0); Albumin/Globulin Ratio 1.5 (1.1-1.8); Alkaline Phosphatase 82 U/L (38-126); Anion Gap 9.8 mEq/L (5-15); Aspartate Amino Transferase 19 U/L (14-36); Bilirubin,Total 0.4 mg/dl (0.2-1.3); Blood Urea Nitrogen 19 mg/dl (7-17); Calcium 9.3 mg/dl (8.4-10.2); Carbon Dioxide 30 mmol/L (22.0-30.0); Chloride 106 mmol/L (98-107); Creatinine,Serum 0.80 mg/dl (0.52-1.04); Estimated Glomerular Filt Rate 74 ml/min (>60); GFR (African American) 90 ML/MIN (>60); Globulin 2.7 g/dL (1.3-3.2); Glucose 84 mg/dl (74-100); Potassium 3.8 mmoL/L (3.5-5.1); Sodium 142 mmol/L (136-145); Total Protein,Serum 6.7 g/dl (6.3-8.2)
== END 2024-12-21 23:59 | disposition home or self-care (01) ==
LOC: LAB 10:13
PROVIDERS: PCP Nurse Practitioner; Visit Provider Specialist
DX: E11.42 Type 2 diabetes mellitus with diabetic polyneuropathy (principal); R25.3 Fasciculation; I10 Essential (primary) hypertension
CPT/HCPCS: 36415; 80053

== ENCOUNTER 2024-12-23 14:36 | Outpatient (CLI) | payer MEDICARE, MEDICAID, SELFPAY ==
--- NOTE | 2024-12-23 14:45 | MR_ITS ---
FINAL REPORT TECHNIQUE: Multiplanar MR, without and with gadolinium enhancement CLINICAL HISTORY: Muscle fasciculation FINDINGS: Diffusion sequences show no signal abnormality to indicate acute infarct. No mass, hemorrhage or edema is seen. Ventricles are normal. Major vascular flow voids are intact. Following contrast administration, no mass or abnormal enhancement is seen. IMPRESSION: Unremarkable MR evaluation the brain with contrast Reviewed, Interpreted and Dictated by Sumaya Kitchen MD Transcribed by Giuliana Fernandez Authenticated and [facility]
[2024-12-23] MEDS: SODIUM CHLORIDE 0.9% 10ML SYR (RAD ONLY) 10 ML IV (15:49)
[2024-12-23] MEDS: GADOTERIDOL INJ 20ML SYRINGE 15 ML IV (15:49)
== END 2024-12-23 23:59 | disposition home or self-care (01) ==
LOC: RAD 14:36
PROVIDERS: PCP Nurse Practitioner; Visit Provider Specialist
DX: R25.3 Fasciculation (principal)
CPT/HCPCS: 70553; A9576